=== PATIENT | female | born 1990 | race Caucasian/White ===

== ENCOUNTER → 2017-04-02 | Outpatient (CLI) | payer OTHER ==
--- NOTE | 2017-04-02 16:35 | US ---
EXAMINATION TYPE: US OB >= 14 wk fetus DATE OF EXAM: 04/02/2017 COMPARISON: None CLINICAL HISTORY: 26-year-old female Z36 Confirm dates [id number] Small for dates 2nd trimester. TECHNIQUE: Transabdominal (TA) FINDINGS: GESTATIONAL AGE / DATING Physician Established: not established Dates by LMP: (18 weeks/6 days) EDC: 08/28/2017 Dates by First Scan: first scan today Dates by Current Scan: (14 weeks/6 days) EDC: 09/25/2017 SURVEY IUP: Single PLACENTA: Posterior PREVIA: Low Lying and may be due to early second trimester scan. The caudal placental margin measure s 1.1 cm from the internal cervical os. JOSE JUAN: 9.2 cm Normal fluid appearance surrounding fetus and gestation is <16 weeks CERVICAL LENGTH (transabdominal: norm > 3.0cm): 3.01 cm, lower limits of normal. BIOMETRY PRESENTATION: Breech LIE: Oblique BPD: 2.8 cm 14 weeks / 6 days HC: 10.6 cm 15 weeks / 0 days AC: 8.5 cm 14 weeks / 6 days FL: 1.5 cm 14 weeks / 3 days ESTIMATED WEIGHT IN GRAMS: 103.97 grams ESTIMATED WEIGHT IN LBS/OZ: 0 lbs. 4 oz. WEIGHT PERCENTAGE BASED ON ESTABLISHED DATES: <3% due to being based on inaccurate dates HC/AC: 1.2 Normal FL/AC: 17.75 Normal HEART RATE: 159 bpm RHYTHM: Normal THERAPY ASSISTANT NOTES: Single, live, IUP,14 weeks/6 days, EDC: 09/25/2017 HR 159bpm. IMPRESSION: 1. Single live anterior with estimated gestational age of 18 weeks 6 days by LMP. However, note that current ultrasound biometry is much smaller and discordant (14 weeks 6 days) suspected to b e on the basis of inaccurate recall of LMP. Clinically correlate. 2. Cervical length measured at 3 cm which is at the lower limits of normal. Follow-up recommended to exclude cervical incompetence. 3. Low-lying posterior placenta measuring 1 cm from the internal cervical os likely due to relatively early . Again, this can be reassessed at follow-up. 4. Complete survey recommended at 18-20 weeks.
== END | disposition home or self-care (01) ==
LOC: RADUSWWP 15:47
PROVIDERS: ATTEND Obstetrics & Gynecology
DX: O36.62X0 Maternal care for excessive fetal growth, second trimester, not applicable or unspecified (principal); O44.02 Complete placenta previa NOS or without hemorrhage, second trimester; Z3A.14 14 weeks gestation of pregnancy
CPT/HCPCS: 76805

== ENCOUNTER → 2017-05-28 | Outpatient (CLI) | payer OTHER ==
[2017-05-28 10:43] LABS: CH 32.2; CHCM 34.3; HCT 35.6 % (34.0-46.0); HDW 2.38; MCH 31.7 pg (25.0-35.0); MCHC 33.6 g/dL (31.0-37.0); MCV 94.5 fL (80.0-100.0); Mean Platelet Volume 7.5; RBC 3.77 m/uL (3.80-5.40); RDW 13.7 % (11.5-15.5); WBC 10.7 k/uL (3.8-10.6)
[2017-05-28 10:54] LABS: Glucose 81 mg/dL (74-99); Non-African American GFR(MDRD) >60 (>60 ml/min/1.73 sqM)
[2017-05-28 16:57] LABS: Treponemal Ab Non-Reactive (Non-Reactive)
[2017-05-28 18:17] LABS: Hepatitis B Surface Ag Index 0.04
== END | disposition home or self-care (01) ==
LOC: LABWHC1 10:03
PROVIDERS: ATTEND Obstetrics & Gynecology
DX: Z34.82 Encounter for supervision of other normal pregnancy, second trimester (principal); Z3A.00 Weeks of gestation of pregnancy not specified
CPT/HCPCS: 36415; 82565; 82947; 85027; 86762; 86780; 86850; 86900; 86901; 87340; 87390

== ENCOUNTER 2018-04-26 13:59 | Inpatient (IN) | payer MEDICAID, OTHER ==
--- NOTE | 2018-04-26 14:33 | ED ---
General Adult HPI - General Chief complaint: Psychiatric Symptoms Stated complaint: Suicidal Time Seen by Provider: 04/26/18 14:19 Source: patient, RN notes reviewed Mode of arrival: ambulatory Limitations: no limitations - History of Present Illness Initial comments: Chief complaint and history of present illness is a 27-year-old female who reports that yesterday because of depression and thoughts of suicide and overdose on alcohol and [place]. The patient reports over. Approximately 7 hours from noon 7 PM yesterday she swallowed and snorted crushed [place]. To this she had alcohol. Patient reports depressed over family matters. - Related Data Home Medications Medication Instructions Recorded Confirmed Pnv,Calcium 72/Iron/Folic Acid 1 tab W/SUPPER 09/19/17 09/19/17 [ Plus Tablet] Previous Rx's Medication Instructions Recorded Ibuprofen [Motrin] 600 mg PO Q6HR PRN #30 tab 09/20/17 Allergies Allergy/AdvReac Type Severity Reaction Status Date / Time Penicillins Allergy Rash/Hives Verified 09/19/17 06:13 Review of Systems ROS Statement: Those systems with pertinent positive or pertinent negative responses have been documented in the HPI. Review of systems. Currently no complaint of headache no visual acuity changes no chest pain or shortness breath no GI/ problems. No neuro deficits. She does states she is depressed and suicidal. All systems were reviewed. Past medical problems significant for anxiety, posterior chronic stress disorder. She reports she has had addictions to alcohol and opiates. She states that she used her 's pain medication without him knowing. She also has a history of asthma. Surgeries gallbladder. Family history grandmother pancreatic cancer. The patient has penicillin ALLERGIES which causes hives. She does smoke strongly encouraged to stop she does admit to alcohol abuse. Last drank last night. ROS Other: All systems not noted in ROS Statement are negative. Past Medical History Past Medical History: No Reported History History of Any Multi-Drug Resistant Organisms: None Reported Past Surgical History: Cholecystectomy Past Anesthesia/Blood Transfusion Reactions: No Reported Reaction Past Psychological History: No Psychological Hx Reported Smoking Status: Never smoker Past Alcohol Use History: None Reported Past Drug Use History: None Reported - Past Family History Mother Family Medical History: No Reported History General Exam - General Exam Comments Initial Comments: General: The patient is awake and alert, with chief complaint of depression and suicidal thoughts. Patient does state that she try to commit suicide yesterday by drinking alcohol combined with approximately 7 [place] tablets over a period of 7 hours. Eye: Pupils are equal, round and reactive to light, extra-ocular movements are intact ; there is normal conjunctiva bilaterally. No signs of icterus. Ears, nose, mouth and throat: There are moist mucous membranes and no oral lesions. Neck: The neck is supple, there is no tenderness . Cardiovascular: There is a regular rate and rhythm. No murmur, rub or gallop is appreciated. Respiratory: Lungs are clear to auscultation, respirations are non-labored, breath sounds are equal. No wheezes, stridor, rales, or rhonchi. Gastrointestinal: Soft, non-distended, non-tender abdomen without masses or organomegaly noted. There is no rebound or guarding present. No CVA tenderness. Bowel sounds are unremarkable. Back: There is no tenderness to palpation in the midline. There is no obvious deformity. No rashes noted. Musculoskeletal: Normal ROM, no tenderness, There is no pedal edema. There is no calf tenderness or swelling. Sensation intact. Pulses equal bilaterally 2+. Neurological: CN II-XII intact, There are no obvious motor or sensory deficits. Coordination appears grossly intact. Speech is normal. No focal or lateralizing findings Skin: Skin is warm and dry and no rashes or lesions are noted. Psychiatric: Depressed, suicidal thoughts and actions yesterday with trying to overdose on [place] tablets and alcohol same time. This was done over 20 hours ago. Limitations: no limitations Course Vital Signs 04/26/18 14:03 Temperature 98.2 F Pulse Rate 105 H Respiratory 18 Rate Blood Pressure 124/78 O2 Sat by Pulse 100 Oximetry Medical Decision Making - Medical Decision Making Medical decision making; this is a 27-year-old female here for psychiatric evaluation. The patient reports that she is depressed and suicidal. States that she snorted and took approximately 7 [place] tablets [place] 24 hours ago with alcohol. Labs show white count of 11.8 hemoglobin 13 hematocrit 40, urine test is positive. Potassium is 3.8 with a BUN 13 creatinine 0.5 GFR greater than 90. Liver enzymes and alk phos are all within normal limits. The patient's drug screen was positive for marijuana. Acetaminophen was less than 10. Salicylate level less than 1. The patient was made aware of the lab results and the fact that the urine test was positive for . The patient is medically cleared for psych evaluation. Patient was evaluated by psychiatric nurse. She discussed the case with the psychiatrist and the patient is voluntarily admitting herself to the psych for further evaluation. - Lab Data Result diagrams: 04/26/18 15:13 04/26/18 15:13 Lab Results 04/26/18 04/26/18 04/26/18 Range/Units 15:13 15:13 15:13 WBC 11.8 H (3.8-10.6) k/uL RBC 4.57 (3.80-5.40) m/uL Hgb 13.4 (11.4-16.0) gm/dL Hct 40.5 (34.0-46.0) % MCV 88.7 (80.0-100.0) fL MCH 29.3 (25.0-35.0) pg MCHC 33.1 (31.0-37.0) g/dL RDW 13.3 (11.5-15.5) % Plt Count 280 (150-450) k/uL Neutrophils % 79 % Lymphocytes % 15 % Monocytes % 4 % Eosinophils % 1 % Basophils % 0 % Neutrophils # 9.4 H (1.3-7.7) k/uL Lymphocytes # 1.8 (1.0-4.8) k/uL Monocytes # 0.4 (0-1.0) k/uL Eosinophils # 0.1 (0-0.7) k/uL Basophils # 0.0 (0-0.2) k/uL Sodium 139 (137-145) mmol/L Potassium 3.8 (3.5-5.1) mmol/L Chloride 104 (98-107) mmol/L Carbon Dioxide 28 (22-30) mmol/L Anion Gap 7 mmol/L BUN 13 (7-17) mg/dL Creatinine 0.50 L (0.52-1.04) mg/dL Est GFR (CKD-EPI)AfAm >90 (>60 ml/min/1.73 sqM) Est GFR (CKD-EPI)NonAf >90 (>60 ml/min/1.73 sqM) Glucose 76 (74-99) mg/dL Calcium 9.6 (8.4-10.2) mg/dL Total Bilirubin 0.3 (0.2-1.3) mg/dL AST 25 (14-36) U/L ALT 24 (9-52) U/L Alkaline Phosphatase 54 (38-126) U/L Total Protein 7.1 (6.3-8.2) g/dL Albumin 4.5 (3.5-5.0) g/dL Urine HCG, Qual (Not Detectd) Salicylates mg/dL Urine Opiates Screen Not Detected (NotDetected) Ur Oxycodone Screen Not Detected (NotDetected) Urine Methadone Screen Not Detected (NotDetected) Ur Propoxyphene Screen Not Detected (NotDetected) Acetaminophen <10.0 ug/mL Ur Barbiturates Screen Not Detected (NotDetected) U Tricyclic Antidepress Not Detected (NotDetected) Ur Phencyclidine Scrn Not Detected (NotDetected) Ur Amphetamines Screen Not Detected (NotDetected) U Methamphetamines Scrn Not Detected (NotDetected) U Benzodiazepines Scrn Not Detected (NotDetected) Urine Cocaine Screen Not Detected (NotDetected) U Marijuana (THC) Screen Detected H (NotDetected) 04/26/18 04/26/18 Range/Units 15:13 15:13 WBC (3.8-10.6) k/uL RBC (3.80-5.40) m/uL Hgb (11.4-16.0) gm/dL Hct (34.0-46.0) % MCV (80.0-100.0) fL MCH (25.0-35.0) pg MCHC (31.0-37.0) g/dL RDW (11.5-15.5) % Plt Count (150-450) k/uL Neutrophils % % Lymphocytes % % Monocytes % % Eosinophils % % Basophils % % Neutrophils # (1.3-7.7) k/uL Lymphocytes # (1.0-4.8) k/uL Monocytes # (0-1.0) k/uL Eosinophils # (0-0.7) k/uL Basophils # (0-0.2) k/uL Sodium (137-145) mmol/L Potassium (3.5-5.1) mmol/L Chloride (98-107) mmol/L Carbon Dioxide (22-30) mmol/L Anion Gap mmol/L BUN (7-17) mg/dL Creatinine (0.52-1.04) mg/dL Est GFR (CKD-EPI)AfAm (>60 ml/min/1.73 sqM) Est GFR (CKD-EPI)NonAf (>60 ml/min/1.73 sqM) Glucose (74-99) mg/dL Calcium (8.4-10.2) mg/dL Total Bilirubin (0.2-1.3) mg/dL AST (14-36) U/L ALT (9-52) U/L Alkaline Phosphatase (38-126) U/L Total Protein (6.3-8.2) g/dL Albumin (3.5-5.0) g/dL Urine HCG, Qual Detected (Not Detectd) Salicylates <1.0 mg/dL Urine Opiates Screen (NotDetected) Ur Oxycodone Screen (NotDetected) Urine Methadone Screen (NotDetected) Ur Propoxyphene Screen (NotDetected) Acetaminophen ug/mL Ur Barbiturates Screen (NotDetected) U Tricyclic Antidepress (NotDetected) Ur Phencyclidine Scrn (NotDetected) Ur Amphetamines Screen (NotDetected) U Methamphetamines Scrn (NotDetected) U Benzodiazepines Scrn (NotDetected) Urine Cocaine Screen (NotDetected) U Marijuana (THC) Screen (NotDetected) Disposition Clinical Impression: Depression, Suicidal behavior Disposition: TRANSFER TO PSYCH HOSP/UNIT Condition: Serious Is patient prescribed a controlled substance at d/c from ED?: No Referrals: None,Stated [Primary Care Provider] - 1-2 days
[2018-04-26 15:31] LABS: Basophils % (A) 0 %; Eosinophils # (A) 0.1 k/uL (0-0.7); Eosinophils % (A) 1 %; HCT 40.5 % (34.0-46.0); HGB 13.4 gm/dL (11.4-16.0); Lymphocytes # (A) 1.8 k/uL (1.0-4.8); Lymphocytes % (A) 15 %; MCH 29.3 pg (25.0-35.0); MCHC 33.1 g/dL (31.0-37.0); MCV 88.7 fL (80.0-100.0); Mean Platelet Volume 6.6; Monocytes # (A) 0.4 k/uL (0-1.0); Monocytes % (A) 4 %; Neutrophils # (A) 9.4 k/uL (1.3-7.7); Neutrophils % (A) 79 %; Platelet Count 280 k/uL (150-450); RBC 4.57 m/uL (3.80-5.40); RDW 13.3 % (11.5-15.5); WBC 11.8 k/uL (3.8-10.6)
[2018-04-26 15:45] LABS: Amphetamine Screen,Urine Not Detected (NotDetected); Barbiturate Screen,Urine Not Detected (NotDetected); Benzodiazepines Screen,Urine Not Detected (NotDetected); Cocaine Screen,Urine Not Detected (NotDetected); Methadone Screen, Urine Not Detected (NotDetected); Opiate Screen,Urine Not Detected (NotDetected); Oxycodone Screen, Urine Not Detected (NotDetected); Phencyclidine Screen,Urine Not Detected (NotDetected); Tricyclic Antidepressant,Urine Not Detected (NotDetected); Urn Cannabinoid Scrn Detected (NotDetected)
[2018-04-26 15:46] LABS: ALT 24 U/L (9-52); AST 25 U/L (14-36); Acetaminophen <10.0 ug/mL; Albumin 4.5 g/dL (3.5-5.0); Alkaline Phosphatase 54 U/L (38-126); Anion Gap 7 mmol/L; Blood Urea Nitrogen 13 mg/dL (7-17); Calcium 9.6 mg/dL (8.4-10.2); Carbon Dioxide 28 mmol/L (22-30); Chloride 104 mmol/L (98-107); Glucose 76 mg/dL (74-99); Potassium 3.8 mmol/L (3.5-5.1); Sodium 139 mmol/L (137-145); Total Bilirubin 0.3 mg/dL (0.2-1.3); Total Protein 7.1 g/dL (6.3-8.2)
[2018-04-26 18:45] LABS: Appearance,Urine Clear (Clear); Bilirubin,Urine Negative (Negative); Blood,Urine Negative (Negative); Color,Urine Yellow; Glucose,Urine (UA) Negative (Negative); Ketones,Urine Negative (Negative); Leukocyte Esterase,Urine Negative (Negative); Nitrite,Urine Negative (Negative); Protein,Urine Trace (Negative); Specific Gravity,Urine 1.022 (1.001-1.035); Urobilinogen,Urine <2.0 mg/dL (<2.0)
[2018-04-27] MEDS ORDERED: LORazepam 1 MG TAB PO PRN ×2 (07:34)
[2018-04-27] MEDS ORDERED: THIAMINE 100 MG/ML 2 ML VIAL IM STA (07:34)
--- NOTE | 2018-04-27 07:58 | P.MDCNMH ---
History of Present Illness H&P Date: 04/27/18 Chief Complaint: medical consultation 27-year-old female with no significant past medical history Patient presented to the hospital due to suicidal ideation, she claims that she was planning on overdosing on her opiates she took some extra pills. She currently denies any medical concerns. Denies any chest pain or trouble breathing denies any fevers or chills denies any abdominal pain denies any changes in her bowel habits or urinary habits. During her workup in the ER she was found to have possible test in the urine. Patient has 3 other kids last baby was 7 months ago. She was not expecting this but now she feels okay about having a baby she is hoping that the father of her children will be excited to have another kid. However she has more than one sexual partner over the past couple months and she is not sure who is the father of the baby. Patient denies any vaginal discharge or bleeding at this time Review of Systems Pertinent positives as noted in HPI. All other systems were reviewed and are negative Past Medical History Past Medical History: No Reported History History of Any Multi-Drug Resistant Organisms: None Reported Past Surgical History: Cholecystectomy Past Anesthesia/Blood Transfusion Reactions: No Reported Reaction Past Psychological History: Depression Smoking Status: Never smoker Past Alcohol Use History: None Reported Past Drug Use History: None Reported - Past Family History Mother Family Medical History: No Reported History Additional Family Medical History / Comment(s): Mother with depression and pink. Cancer Medications and Allergies Home Medications Medication Instructions Recorded Confirmed Type No Known Home Medications 04/26/18 04/26/18 History Allergies Allergy/AdvReac Type Severity Reaction Status Date / Time Penicillins Allergy Rash/Hives Verified 04/26/18 17:26 Physical Exam Vitals: Vital Signs Temp Pulse Resp BP Pulse Ox 04/26/18 17:27 97.5 F L 94 18 110/57 99 04/26/18 14:03 98.2 F 105 H 18 124/78 100 Constitutional: No acute distress, conversant, pleasant Eyes: Anicteric sclerae, moist conjunctiva, no lid-lag Pupils equal round reactive to light ENMT: NC/AT Oropharynx clear, no erythema, exudates Neck: Supple, FROM, no masses, or JVD No carotid bruits No thyromegaly Lungs: Clear to auscultation Clear to percussion Normal respiratory effort, no accessory muscle use Cardiovascular: Heart regular in rate and rhythm, No murmurs, gallops, or rubs No peripheral edema Abdominal: Soft Nontender, no guarding, rebound or rigidity Abdomen moving with respiration Normoactive bowel sounds No hepatomegaly, No splenomegaly No palpable mass No abdominal wall hernia noted Skin: Normal temperature, tone, texture, turgor No induration No subcutaneous nodules No rash, lesions No ulcers Extremities: No digital cyanosis No clubbing Pedal pulses intact and symmetrical Radial pulses intact and symmetrical No calf tenderness Psychiatric: Alert and oriented to person, place and time Appropriate affect fair judgement Neuro Muscles Strength 5/5 in all 4 extremities Sensation to light touch grossly present throughout Cranial nerves II-XII grossly intact No focal sensory deficits Lymphatics: no palpable cervical or supraclavicular , or inguinal lymph nodes Cranial Nerve Examination - Cranial Nerves Cranial Nerve II- Optic: Intact Cranial Nerve III- Oculomotor: Intact Cranial Nerve IV- Trochlear: Intact Cranial Nerve V- Trigeminal: Intact Cranial Nerve - Abducens: Intact Cranial Nerve VII- Facial: Intact Cranial Nerve VIII- Auditory: Intact Cranial Nerve IX- Glossopharyngeal: Intact Cranial Nerve X- Vagus: Intact Cranial Nerve XI- Accessory: Intact Cranial Nerve XII- Hypoglossal: Intact Results CBC & Chem 7: 04/26/18 15:13 04/26/18 15:13 Labs: Abnormal Lab Results - Last 24 Hours (Table) 04/26/18 04/26/18 04/26/18 Range/Units 15:13 15:13 15:13 WBC 11.8 H (3.8-10.6) k/uL Neutrophils # 9.4 H (1.3-7.7) k/uL Creatinine 0.50 L (0.52-1.04) mg/dL TSH (0.465-4.680) mIU/L Urine Protein (Negative) U Marijuana (THC) Screen Detected H (NotDetected) 04/26/18 04/26/18 Range/Units 15:13 15:30 WBC (3.8-10.6) k/uL Neutrophils # (1.3-7.7) k/uL Creatinine (0.52-1.04) mg/dL TSH 0.397 L (0.465-4.680) mIU/L Urine Protein Trace H (Negative) U Marijuana (THC) Screen (NotDetected) Assessment and Plan Assessment: 27-year-old female with history of depression presented due to suicidal ideation. Patient was also found to be in the emergency department workup with a positive urine test. Patient had a baby 7 months ago. Medicine was consulted for medical management Plan: Depression and suicidal ideation Management per psych Positive test OB consult Check quantitative serum beta hCG vitamin Alcohol abuse Withdrawal precautions When necessary benzo Thiamine and folic acid Low TSH, rule out thyroid disorder Check free T4 DVT prophylaxis, patient is ambulatory Thank you for allowing us to participate in the care of this patient. We will follow peripherally. Do not hesitate to contact us with questions. Someone can be reached from the [facility] hospitalist group at all hours of the day at [phone].
[2018-04-27 08:49] LABS: T4, Free (Free Thyroxine) 0.97 ng/dL (0.78-2.19)
[2018-04-27 09:58] LABS: HCG,Quantitative Serum 92534.7 mIU/mL
[2018-04-27] MEDS: NICOTINE 14MG/24HR PATCH TRANSDERM SCH (10:07)
[2018-04-27 10:18] VITALS: RESP 16; BMI 19.2
[2018-04-27] MEDS: PRENATAL VIT-IRON-FOLIC ACID 1 EACH CAP PO SCH (12:13)
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
[2018-04-27] MEDS: THIAMINE 100 MG TAB PO SCH (17:05)
[2018-04-28] MEDS: NICOTINE 14MG/24HR PATCH TRANSDERM SCH (08:45)
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
[2018-04-28] MEDS: THIAMINE 100 MG TAB PO SCH ×2 (12:47→16:21)
[2018-04-28] MEDS: PRENATAL VIT-IRON-FOLIC ACID 1 EACH CAP PO SCH (12:47)
[2018-04-28] MEDS ORDERED: MELATONIN 3 MG TABLET PO PRN (18:38)
--- NOTE | 2018-04-28 18:42 | P.OBCN ---
History of Present Illness Consult date: 04/28/18 Requesting physician: Franklin Olmstead Reason for consult: early problem Chief complaint: and medication exposure History of present illness: This patient is a pleasant 27-year-old 5 para 3 female who is admitted to [facility] on April 26 after presenting to the emergency department with an apparent suicide attempt. Please see dictated H&P on this patient's admission for intimate details of this admission. Evaluation here at the hospital has shown the patient to be as well. Patient states that she is unsure about her last menstrual period but thinks it was on 01/24/2018 which would put her approximately 13 weeks and 4 days with a due date of 10/31/2018. Patient most recently had a vaginal delivery with Dr. Swain and late August of this last year. She has not been seen by him as of yet for this . Review of Systems Genitourinary: Reports Past Medical History Past Medical History: No Reported History History of Any Multi-Drug Resistant Organisms: None Reported Past Surgical History: Cholecystectomy Past Anesthesia/Blood Transfusion Reactions: No Reported Reaction Smoking Status: Current every day smoker - Past Family History Mother Family Medical History: No Reported History Additional Family Medical History / Comment(s): Mother with depression. Medications and Allergies Home Medications Medication Instructions Recorded Confirmed Type No Known Home Medications 04/26/18 04/26/18 History Allergies Allergy/AdvReac Type Severity Reaction Status Date / Time Penicillins Allergy Rash/Hives Verified 04/26/18 17:26 Exam Vital Signs Temp Pulse Resp BP 04/28/18 06:41 98.8 F 83 16 105/60 Intake and Output 04/28/18 04/28/18 04/28/18 06:59 14:59 22:59 Other: Weight 50.9 kg Results Result Diagrams: 04/26/18 15:13 04/26/18 15:13 Assessment and Plan Assessment: This is a pleasant 27-year-old 5 para 3 female estimated gestational age 13-1/2 weeks per uncertain LMP who is admitted for depression and suicidal behavior. From an obstetrical standpoint certainly SSRIs are generally considered an option since the benefits outweigh the potential risks. Most studies show that SSRIs are not associated with defects. At this point it also appears she has polysubstance abuse which qualifies her as a high-risk . I have ordered an ultrasound to confirm her EDC. I think she certainly could take Zoloft or Prozac. She may follow up with Dr. Swain as an outpatient for obstetrical care. (1) Medication exposure during first trimester of Current Visit: Yes Status: Acute Code(s): O09.891 - SUPERVISION OF OTHER HIGH RISK PREGNANCIES, FIRST TRIMESTER SNOMED Code(s): 45220092
[2018-04-28] MEDS ORDERED: SERTRALINE 50 MG TAB PO SCH (21:00)
[2018-04-29 06:38] VITALS: BP 94/54; PULSE 88; TEMP 97.9
[2018-04-29] MEDS: NICOTINE 14MG/24HR PATCH TRANSDERM SCH (08:59)
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
[2018-04-29] MEDS: THIAMINE 100 MG TAB PO SCH (12:32)
[2018-04-29] MEDS: PRENATAL VIT-IRON-FOLIC ACID 1 EACH CAP PO SCH (12:32)
--- NOTE | 2018-04-29 15:29 | US ---
EXAMINATION TYPE: Transabdominal DATE OF EXAM: 12/24/17 COMPARISON: NONE CLINICAL HISTORY: Unknown dates/medication exposure. Confirm dates EXAM PERFORMED: Transabdominal (TA) EXAM MEASUREMENTS: GESTATIONAL AGE / DATING Physician Established: Not established yet Dates by LMP: Unknown Dates by First Scan: This is 1st scan Dates by Current Scan for: (11 weeks/0 days) EDC: 11/18/2018 MATERNAL ANATOMY Uterus: 10.2 x 7.2 x 8.2cm, anteverted Right Ovary: 3.4 x 2.1 x 2.1cm Left Ovary: 2.5 x 2.1 x 2.1cm Post CDS / Adnexa: wnl Presence of free fluid: no Presence of corpus luteal cyst: not seen Presence of subchorionic bleed: no GESTATION / SURVEY CRL: 4.1cm (11 weeks/0 days) Yolk Sac (normal less than 6mm): 3.4mm Heart Rate: 172 bpm Rhythm: Normal IUP: Viable IUP Nuchal Translucency 10-14wks (normal less than 3mm): 1.2mm Date of LMP: Unknown Beta HcG (if available): 92,534.7 Viable single IUP measuring 11 weeks 0 days with a heart rate of 172bpm and an estimated delivery rigo e of 11/18/2018. IMPRESSION: 1. Single intrauterine gestation estimated at 11 weeks 0 days gestation based on crown-rump length. C ardiac activity measures 172 bpm.
== END 2018-04-29 13:55 | disposition home or self-care (01) | DRG 885 ==
LOC: EC 13:59 → 3MHU 17:15
PROVIDERS: ADMIT Psychiatry & Neurology Psychiatry; ATTEND Psychiatry & Neurology Psychiatry
DX: F33.2 Major depressive disorder, recurrent severe without psychotic features (principal); O99.321 Drug use complicating pregnancy, first trimester; R45.851 Suicidal ideations; F11.23 Opioid dependence with withdrawal; F41.9 Anxiety disorder, unspecified; O99.311 Alcohol use complicating pregnancy, first trimester; O99.331 Smoking (tobacco) complicating pregnancy, first trimester; O99.341 Other mental disorders complicating pregnancy, first trimester; Z32.01 Encounter for pregnancy test, result positive; Z3A.13 13 weeks gestation of pregnancy; Z81.8 Family history of other mental and behavioral disorders; F10.10 Alcohol abuse, uncomplicated; F14.10 Cocaine abuse, uncomplicated; F15.10 Other stimulant abuse, uncomplicated; Z88.0 Allergy status to penicillin; Z63.0 Problems in relationship with spouse or partner
CPT/HCPCS: 36415; 76801; 76813; 80053; 80306; 81003; 81025; 82075; 83520; 84439; 84443; 84702; 85025; 99285

== ENCOUNTER → 2018-06-20 | Outpatient (CLI) | payer OTHER ==
--- NOTE | 2018-06-20 17:05 | US ---
EXAMINATION TYPE: US OB anatomy transabd DATE OF EXAM: 06/20/2018 COMPARISON: US 04/29/2018 HISTORY: Z34.80 supervision of other normal TECHNIQUE: Transabdominal (TA) EXAM MEASUREMENTS: GESTATIONAL AGE / DATING Physician Established: (18 weeks/3 days) EDC: 11/18/2018 Dates by First Scan: (18 weeks/3 days) EDC: 11/18/2018 Dates by Current Scan for: (18 weeks/0 days) EDC: 11/21/2018 SURVEY IUP: Single PLACENTA: Anterior PREVIA: No previa JOSE JUAN: 14.1 cm Normal CERVICAL LENGTH (transabdominal: norm > 3.0cm): 4.1 cm BIOMETRY PRESENTATION: Vertex LIE: Longitudinal BPD: 4.0 cm 18 weeks / 2 days HC: 15.4 cm 18 weeks / 3 days AC: 12.0 cm 17 weeks / 5 days FL: 2.5 cm 17 weeks / 4 days ESTIMATED WEIGHT IN GRAMS: 207 grams ESTIMATED WEIGHT IN LBS/OZ: 0 lbs. 7 oz. WEIGHT PERCENTAGE BASED ON ESTABLISHED DATE: 12 % HC/AC: 1.28 Normal FL/AC: 21% HEART RATE: 147 bpm RHYTHM: Normal ANATOMY SEEN (within normal limits): * Lateral Vent (< 1 cm) 0.6 cm * Cisterna Magna (< 1.1 cm) 0.5 cm * Nuchal Fold (< 0.6 cm) 0.2 cm * Cerebellum (varies with age) 1.7 cm Choroid Plexus (bilateral) Midline Falx Cavus Septi Pellucidi Four Chamber Heart Outflow tracts: LVOT/RVOT Stomach Situs Nose / Lips Diaphragm Kidneys (bilateral) Bladder Cord Insert Three Vessel Cord Longitudinal Spine Transverse Spine Arms (bilateral) Legs (bilateral) Viable IUP, measurements consistent with dates. IMPRESSIONS: 1. Single intrauterine gestation estimated at 18 weeks 0 days gestation based on current ultrasound. This would have an estimated date of confinement of 11/21/2018. Cardiac activity measuring 147 bpm was observed during the study.
== END ==
LOC: RADUSWWP 09:42
PROVIDERS: ATTEND Obstetrics & Gynecology
DX: Z34.80 Encounter for supervision of other normal pregnancy, unspecified trimester (principal); Z3A.18 18 weeks gestation of pregnancy
CPT/HCPCS: 76811

== ENCOUNTER → 2018-09-05 | Outpatient (CLI) | payer OTHER ==
--- NOTE | 2018-09-05 15:49 | US ---
EXAMINATION TYPE: US OB >= 14 wk fetus DATE OF EXAM: 09/05/2018 COMPARISON: us 06/20/2018 CLINICAL HISTORY: [id number] Encounter for supervision of other normal pr TECHNIQUE: Transabdominal (TA) GESTATIONAL AGE / DATING Physician Established: (29 weeks/0 days) EDC: 11/21/2018 Dates by LMP: (29 weeks/3 days) EDC: 11/18/2018 Dates by First Scan: (29 weeks/3 days) EDC: 11/18/2018 Dates by Current Scan: (28 weeks/6 days) EDC: 11/22/2018 Beta HCG (if available): Not available at this time SURVEY IUP: Single PLACENTA: Anterior PREVIA: No Previa JOSE JUAN: 18.3 cm Normal CERVICAL LENGTH (transabdominal: norm > 3.0cm): 3.1 cm BIOMETRY PRESENTATION: Breech LIE: Longitudinal BPD: 7.5 cm 29 weeks / 6 days HC: 27.6 cm 30 weeks / 1 days AC: 24.9 cm 29 weeks / 1 days FL: 5.3 cm 28 weeks / 1 days ESTIMATED WEIGHT IN GRAMS: 1313 grams ESTIMATED WEIGHT IN LBS/OZ: 2 lbs. 14 oz. WEIGHT PERCENTAGE BASED ON ESTABLISHED DATES: 22.2% HC/AC: 1.1 Normal FL/AC: 21.2 Normal HEART RATE: 132 bpm RHYTHM: Normal Viable IUP, measurements consistent with dates. Femur length to head circumference is slightly diminished at 19.21, normal greater than 19.49. IMPRESSION: Single intrauterine gestation currently estimated at 28 weeks 6 days gestation based on current ultra sound measurements. This would have a calculated EDC of 11/22/2018. Correlate this with her physician e stablished EDC. Cardiac activity measures 132 bpm
== END | disposition home or self-care (01) ==
LOC: RADUSWWP 11:00
PROVIDERS: ATTEND Obstetrics & Gynecology
DX: Z34.82 Encounter for supervision of other normal pregnancy, second trimester (principal); Z3A.28 28 weeks gestation of pregnancy
CPT/HCPCS: 76805

== ENCOUNTER 2018-11-06 00:25 | Inpatient (IN) | payer OTHER ==
[2018-11-06] MEDS ORDERED: OXYTOCIN 10 UNIT/ML 1 ML VIAL IM PRN (00:54)
[2018-11-06] MEDS ORDERED: CARBOPROST TROMETHAMINE 250 MCG/ML 1 ML AMP IM PRN (00:54)
[2018-11-06] MEDS ORDERED: TERBUTALINE 1 MG/ML VIAL SQ PRN (00:54)
[2018-11-06] MEDS ORDERED: METHYLERGONOVINE 0.2 MG/ML 1 ML AMP IM PRN (00:54)
[2018-11-06] MEDS ORDERED: LIDOCAINE 0.5% (PF) 5 MG/ML (50 ML SDV) SQ PRN (00:54)
[2018-11-06] MEDS ORDERED: CLINDAMYCIN 900 MG in DEXTROSE 5% IN WATER 50 ML IVPB STA ×2 (00:54)
[2018-11-06] MEDS ORDERED: BUTORPHANOL 1 MG/ML 1 ML VIAL IV PRN (00:59)
[2018-11-06] MEDS: LACTATED RINGERS 1,000 ML IV SCH ×3 (01:33→10:51)
[2018-11-06 01:38] VITALS: BMI 28.1
[2018-11-06 01:40] LABS: Basophils % (A) 0 %; Eosinophils # (A) 0.2 k/uL (0-0.7); Eosinophils % (A) 2 %; HCT 35.1 % (34.0-46.0); HGB 11.4 gm/dL (11.4-16.0); Lymphocytes # (A) 2.9 k/uL (1.0-4.8); Lymphocytes % (A) 25 %; MCHC 32.5 g/dL (31.0-37.0); MCV 92.3 fL (80.0-100.0); Monocytes # (A) 0.6 k/uL (0-1.0); Monocytes % (A) 5 %; Neutrophils # (A) 7.9 k/uL (1.3-7.7); Neutrophils % (A) 66 %; Platelet Count 302 k/uL (150-450); RDW 13.4 % (11.5-15.5); WBC 11.9 k/uL (3.8-10.6)
[2018-11-06 01:43] LABS: Appearance,Urine Cloudy (Clear); Bilirubin,Urine 1+ (Negative); Blood,Urine Negative (Negative); Color,Urine Yellow; Glucose,Urine (UA) Negative (Negative); Hyaline Casts,Urine 4 /lpf (0-2); Ketones,Urine Negative (Negative); Leukocyte Esterase,Urine Large (Negative); Mucus,Urine Many /hpf; Nitrite,Urine Negative (Negative); Protein,Urine 1+ (Negative); RBC,Urine 11 /hpf (0-5); Specific Gravity,Urine 1.037 (1.001-1.035); Squamous Epithelial Cell,Urine 7 /hpf (0-4); WBC,Urine 26 /hpf (0-5)
[2018-11-06 01:49] LABS: Cocaine Screen,Urine Not Detected (NotDetected); Phencyclidine Screen,Urine Not Detected (NotDetected); Urn Cannabinoid Scrn Not Detected (NotDetected)
[2018-11-06 01:50] LABS: Amphetamine Screen,Urine Not Detected (NotDetected); Barbiturate Screen,Urine Not Detected (NotDetected); Benzodiazepines Screen,Urine Detected (NotDetected); Methadone Screen, Urine Not Detected (NotDetected); Opiate Screen,Urine Detected (NotDetected); Oxycodone Screen, Urine Not Detected (NotDetected); Tricyclic Antidepressant,Urine Not Detected (NotDetected)
[2018-11-06] MEDS ORDERED: OXYTOCIN 30 UNITS/500 ML NS 30 UNIT in SALINE 1 500ML.BAG IV SCH (04:00)
[2018-11-06] MEDS ORDERED: ROPIVACAINE 5MG/ML 20ML VIAL ONE (05:06)
[2018-11-06] MEDS ORDERED: SODIUM CHLORIDE 0.9% 100 ML BAG ONE (05:06)
[2018-11-06] MEDS ORDERED: fentaNYL (PF) 50 MCG/ML 5 ML AMP ONE (05:06)
--- NOTE | 2018-11-06 08:10 | P.HPOB ---
History of Present Illness H&P Date: 11/06/18 Chief Complaint: IUP 38 2/7 weeks, SROM This is a 28yo at 38 2/7 weeks EDC 11/18, she presents last night with c/ o SROM clear in nature. she notes some ctx but nothing regular. She states she has been receiving routine care with Dr. Mary alexander at [facility]. blood work was obtained with a blood type of B+, hepatitis B surface antigen negative , rubella immune, group beta strep was positive, HIV negative, RPR nonreactive, UDS on admission was positive for benzos and opiates. She states she has been taking Zoloft for depression during this . Review of Systems Constitutional: Denies chills, Denies fatigue, Denies fever Cardiovascular: Reports leg edema Respiratory: Denies dyspnea Gastrointestinal: Denies constipation, Denies diarrhea Genitourinary: Reports Past Medical History Past Medical History: No Reported History History of Any Multi-Drug Resistant Organisms: None Reported Past Surgical History: Cholecystectomy Past Anesthesia/Blood Transfusion Reactions: No Reported Reaction Past Psychological History: Depression Smoking Status: Never smoker Past Alcohol Use History: Abuse Additional Past Alcohol Use History / Comment(s): Ptstates she has been drinking weekly over the past two months Past Drug Use History: Cocaine, Marijuana, Opiates - Past Family History Mother Family Medical History: No Reported History Additional Family Medical History / Comment(s): Mother with depression. Medications and Allergies Home Medications Medication Instructions Recorded Confirmed Type Ylj-Kqof-Vajkg Acid 1 each PO DAILY@1200 #30 cap 04/29/18 11/06/18 Rx [-U Capsule (formulary)] Sertraline [Zoloft] 150 mg PO HS 11/06/18 11/06/18 History Allergies Allergy/AdvReac Type Severity Reaction Status Date / Time Penicillins Allergy Rash/Hives Verified 11/06/18 00:31 Exam Osteopathic Statement: *. No significant issues noted on an osteopathic structural exam other than those noted in the History and Physical/Consult. Vital Signs Temp Pulse Resp BP Pulse Ox 11/06/18 00:54 97.5 F L 99 16 121/71 98 11/06/18 00:53 97.5 F L 99 16 121/71 98 Intake and Output 11/05/18 11/06/18 11/06/18 22:59 06:59 14:59 Intake Total 950 Balance 950 Intake: IV 950 Lactated Ringers 1,000 ml 950 @ 125 mls/hr IV .Q8H [facility] Rx#:[id number] Other: # Voids 1 Weight 74.389 kg In general this is a well-nourished well-developed female in no acute distress. On initial physical exam she was noted to have nonlabored bleeding breathing, heart was noted to have a regular rate and rhythm. Abdomen is noted to be gravid, heart tones are noted to be reassuring with moderate variability and she is hugh every 3 minutes Results Result Diagrams: 11/06/18 01:30 Abnormal Lab Results - Last 24 Hours (Table) 11/06/18 11/06/18 11/06/18 Range/Units 01:30 01:30 01:30 WBC 11.9 H (3.8-10.6) k/uL Neutrophils # 7.9 H (1.3-7.7) k/uL Urine Appearance Cloudy H (Clear) Ur Specific [place] 1.037 H (1.001-1.035) Urine Protein 1+ H (Negative) Urine Bilirubin 1+ H (Negative) Ur Leukocyte Esterase Large H (Negative) Urine RBC 11 H (0-5) /hpf Urine WBC 26 H (0-5) /hpf Ur Squamous Epith Cells 7 H (0-4) /hpf Hyaline Casts 4 H (0-2) /lpf Urine Mucus Many H (None) /hpf Urine Opiates Screen Detected H (NotDetected) U Benzodiazepines Scrn Detected H (NotDetected) Assessment and Plan (1) Term Current Visit: Yes Status: Acute Code(s): Z34.80 - ENCOUNTER FOR SUPRVSN OF NORMAL , UNSP TRIMESTER SNOMED Code(s): 09383580 (2) Positive GBS test Current Visit: Yes Status: Acute Code(s): B95.1 - STREPTOCOCCUS, GROUP B, CAUSING DISEASES CLASSD ELSR SNOMED Code(s): 7399927168109 (3) SROM (spontaneous rupture of membranes) Current Visit: Yes Status: Acute Code(s): TTU9736 - SNOMED Code(s): 559384070 Plan: Patient is admitted to labor and delivery and Pitocin augmentation of labor was begun. Given her positive GBS culture clindamycin treatment is begun. We will try to obtain records from Dr. jalloh this morning. UDS as she is in no doc to this hospital was positive for benzos and opiates patient is aware that social service consult will be initiated. Anticipate spontaneous vaginal delivery this morning.
[2018-11-06] MEDS ORDERED: CLINDAMYCIN 900 MG in DEXTROSE 5% IN WATER 50 ML IVPB SCH ×2 (08:55)
--- NOTE | 2018-11-06 09:14 | P.PROBDLV ---
Vaginal Delivery Note - . Vaginal Delivery Note: This is a 28-year-old 4 para 3003 at 38-2/7 weeks that presented to labor and delivery last night with complaints of spontaneous rupture of membranes clear in nature. Patient states she noted rupture of membrane turned around 11:30 and that presented to OB triage. Patient was admitted to labor and delivery chief EBS positive status was obtained from [facility] and clindamycin was begun. Patient made minimal ion exchange operator 2 hours therefore Pitocin augmentation of labor was begun patient became uncomfortable eventually requesting an epidural for anesthesia. This was placed without difficulty. Patient progressed to complete began pushing and had a normal spontaneous vaginal delivery of a viable male infant at 903, infant did have a loose nuchal 2 which was delivered through. Infants weight was 6 lbs. 7 oz. with Apgars of 9 and 9 at one and 5 minutes respectively. After a two-minute delayed the umbilical cord was doubly clamped and cut and the placenta was delivered spontaneously intact with a three-vessel cord being noted. On speculum patient's vaginal vault lacerations were noted. Estimated blood loss was 300 mL. Patient and infant tolerated delivery well and are resting comfortably.
[2018-11-06] MEDS ORDERED: LANOLIN CREAM 5 GM TUBE TOPICAL PRN (09:15)
[2018-11-06] MEDS ORDERED: HYDROCORTISONE 2.5% RECTAL CREAM 30 GM TUBE RECTAL PRN (09:15)
[2018-11-06] MEDS ORDERED: ZOLPIDEM 5 MG TAB PO PRN (09:15)
[2018-11-06] MEDS ORDERED: OXYTOCIN 20 UNITS/1000 ML NS 1,000 ML IV SCH (09:15)
[2018-11-06] MEDS ORDERED: SIMETHICONE 80 MG CHEWABLE PO PRN (09:15)
[2018-11-06] MEDS ORDERED: diphenhydrAMINE 25 MG CAP PO PRN (09:15)
[2018-11-06] MEDS ORDERED: diphenhydrAMINE 50 MG/ML 1 ML VIAL IVP PRN ×2 (09:15)
[2018-11-06] MEDS ORDERED: diphenhydrAMINE 50 MG CAP PO PRN (09:15)
[2018-11-06] MEDS ORDERED: BENZOCAINE/MENTHOL SPRAY 1 GM/SPRAY AEROSOL TOPICAL PRN (09:15)
[2018-11-06] MEDS ORDERED: WITCH HAZEL 1 EACH MED..PAD TOPICAL PRN (09:15)
[2018-11-06] MEDS: IBUPROFEN 600 MG TAB PO PRN ×3 (10:39→22:57)
[2018-11-06] MEDS ORDERED: PRENATAL VIT-IRON-FOLIC ACID 1 EACH CAP PO SCH (12:00)
[2018-11-06] MEDS: SERTRALINE 50 MG TAB PO SCH (15:59)
[2018-11-06] MEDS: ACETAMINOPHEN TAB 325 MG TAB PO PRN (18:51)
[2018-11-06 20:38] VITALS: RESP 16
[2018-11-06] MEDS: SENNOSIDES-DOCUSATE SODIUM 1 EACH TAB PO SCH (20:38)
[2018-11-07] MEDS: ACETAMINOPHEN TAB 325 MG TAB PO PRN ×4 (03:58→21:08)
[2018-11-07 05:55] LABS: Basophils # (A) 0.1 k/uL (0-0.2); Basophils % (A) 1 %; Eosinophils # (A) 0.3 k/uL (0-0.7); Eosinophils % (A) 2 %; HCT 32.2 % (34.0-46.0); HGB 10.9 gm/dL (11.4-16.0); Lymphocytes # (A) 3.3 k/uL (1.0-4.8); Lymphocytes % (A) 26 %; MCHC 33.8 g/dL (31.0-37.0); MCV 91.6 fL (80.0-100.0); Mean Platelet Volume 7.2; Monocytes # (A) 0.5 k/uL (0-1.0); Monocytes % (A) 4 %; Neutrophils # (A) 8.1 k/uL (1.3-7.7); Neutrophils % (A) 65 %; Platelet Count 308 k/uL (150-450); RBC 3.51 m/uL (3.80-5.40); RDW 13.2 % (11.5-15.5); WBC 12.5 k/uL (3.8-10.6)
[2018-11-07] MEDS: IBUPROFEN 600 MG TAB PO PRN ×3 (05:56→18:57)
--- NOTE | 2018-11-07 07:45 | P.PN ---
Subjective Progress Note Date: 11/07/18 Minimal lochia rubra. Minimal pain. No complaints. Objective - Vital Signs Vital signs: Vital Signs Temp 98.4 F 11/06/18 23:03 Pulse 87 11/06/18 23:03 Resp 16 11/06/18 23:03 BP 94/53 11/06/18 23:03 Pulse Ox 98 11/06/18 00:54 Intake & Output 11/06/18 11/07/18 11/07/18 18:59 06:59 18:59 Other: # Voids 1 - Constitutional General appearance: Present: average body habitus, cooperative - EENT Eyes: Present: PERRLA ENT: Present: hearing grossly normal - Respiratory Respiratory: bilateral: CTA - Cardiovascular Rhythm: regular - Gastrointestinal General gastrointestinal: Present: normal bowel sounds - Integumentary Integumentary: Present: normal - Neurologic Neurologic: Present: CNII-XII intact - Musculoskeletal Musculoskeletal: Present: gait normal, strength equal bilaterally - Psychiatric Psychiatric: Present: A&O x's 3, appropriate affect - Labs CBC & Chem 7: 11/07/18 05:34 Labs: Abnormal Lab Results - Last 24 Hours (Table) 11/07/18 Range/Units 05:34 WBC 12.5 H (3.8-10.6) k/uL RBC 3.51 L (3.80-5.40) m/uL Hgb 10.9 L (11.4-16.0) gm/dL Hct 32.2 L (34.0-46.0) % Neutrophils # 8.1 H (1.3-7.7) k/uL Assessment and Plan Assessment: day #1. Doing well. Plan: Patient declines option for discharge home today. We'll likely discharge home tomorrow. in the nursery, not eligible for circumcision at this time. Will follow Time with Patient: Less than 30
[2018-11-07] MEDS: SENNOSIDES-DOCUSATE SODIUM 1 EACH TAB PO SCH ×2 (07:48→21:09)
[2018-11-07] MEDS: SERTRALINE 50 MG TAB PO SCH (09:36)
[2018-11-07 14:06] LABS: C. trachomatis,PCR Negative (Neg,Equiv); Chlamydia trachomatis Source Urine; N. gonorrhoeae,PCR Negative (Neg,Equiv); Neisseria Source Urine
[2018-11-08] MEDS: IBUPROFEN 600 MG TAB PO PRN ×2 (00:52→08:27)
[2018-11-08 08:24] VITALS: BP 133/76; PULSE 84; TEMP 98.6
[2018-11-08] MEDS: SENNOSIDES-DOCUSATE SODIUM 1 EACH TAB PO SCH (08:28)
[2018-11-08] MEDS: SERTRALINE 50 MG TAB PO SCH (08:28)
--- NOTE | 2018-11-08 09:02 | P.DS ---
Providers Date of admission: 11/06/18 00:53 Expected date of discharge: 11/08/18 Attending physician: Adriana Mejia Primary care physician: Stated None Hospital Course: This is a 28-year-old white female 4 para 3003 EDC 11/18/2018 at 38-2/7 weeks' gestation. Patient presented to our hospital, having had limited care at another institution. She was in active labor with spontaneous amniorrhexis. She went on to deliver a liveborn male infant with scores of 9 and 9 at one and 5 minutes respectively. Infant weighed 6 lbs. 7 oz. or 2940 g. Her history was significant for positive urine drug screen, group B strep cultures positive, blood type B positive. Please see dictated history and physical as well as delivery note for details. This morning the infant is in the nursery, exhibiting signs of withdrawal.. He is not judged to be in condition for discharge home at this time. The patient however is being discharged home in good condition. She has minimal lochia rubra, fundus is firm and in the midline, symmetric and 18 week size. Extremities are negative for edema. Breasts are not engorged. Patient is not breast-feeding. Her chest is clear. Patient will follow-up with her doctor, Dr. Hernandez in 6 weeks. I have reminded her no intercourse, tampons or douching. She is contemplating different options for contraception and we'll discuss this with her own strategic communications specialist as an outpatient. She will continue taking vitamins daily. I advised that she use [id number] Motrin, Advil or Aleve as needed for pain. She will follow-up with Dr. Hernandez with any fevers shakes or chills, foul smelling or copious lochia, with the passage of large blood clots, with any pain not alleviated by nxey-xva-xueuarr products, or indeed with any concerns. I have recommended that she continue taking her Zoloft, 150 mg daily. Patient Condition at Discharge: Good Plan - Discharge Summary Discharge Rx Participant: No New Discharge Prescriptions: No Action Oro-Wccf-Pjhyu Acid [-U Capsule (formulary)] 1 each PO DAILY @1200 #30 cap Sertraline [Zoloft] 150 mg PO HS Discharge Medication List Quo-Llfr-Tkkuy Acid [-U Capsule (formulary)] 1 each PO DAILY@ 1200 #30 cap 04/29/18 [Rx] Sertraline [Zoloft] 150 mg PO HS 11/06/18 [History]
== END 2018-11-08 13:37 | disposition home or self-care (01) | DRG 806 ==
LOC: FBPOP 00:25 → 4FBP 00:53
PROVIDERS: ADMIT Obstetrics & Gynecology Obstetrics; ATTEND Obstetrics & Gynecology Obstetrics
PROC: 10E0XZZ Delivery of Products of Conception, External Approach (ICD-10-PCS; principal; 2018-11-06)
PROC: 00HU33Z Insertion of Infusion Device into Spinal Canal, Percutaneous Approach (ICD-10-PCS; 2018-11-06)
PROC: 3E0R3BZ Introduction of Anesthetic Agent into Spinal Canal, Percutaneous Approach (ICD-10-PCS; 2018-11-06)
DX: O69.81X0 Labor and delivery complicated by cord around neck, without compression, not applicable or unspecified (principal); O71.4 Obstetric high vaginal laceration alone; Z37.0 Single live birth; O99.824 Streptococcus B carrier state complicating childbirth; O99.344 Other mental disorders complicating childbirth; Z3A.38 38 weeks gestation of pregnancy; F32.9 Major depressive disorder, single episode, unspecified; Z79.899 Other long term (current) drug therapy; Z90.49 Acquired absence of other specified parts of digestive tract; Z88.0 Allergy status to penicillin; Z81.8 Family history of other mental and behavioral disorders
CPT/HCPCS: 59025; 80306; 81001; 84112; 85025; 86850; 86900; 86901; 87491; 87591; 88307; 99213

== ENCOUNTER 2018-12-02 22:06 | Inpatient (IN) | payer OTHER ==
[2018-12-02] MEDS ORDERED: cefTRIAXone IN SWFI 1,000 MG/10 ML SYRINGE IVP STA (22:28)
[2018-12-02] MEDS ORDERED: SODIUM CHLORIDE 0.9% 1,000 ML IV ONE ×2 (22:28→23:47)
[2018-12-02] MEDS ORDERED: KETOROLAC 30 MG/ML 1 ML VIAL IVP STA (22:29)
--- NOTE | 2018-12-02 22:33 | ED ---
Fever HPI - General Source: patient Mode of arrival: ambulatory Limitations: no limitations <Kait Lee - Last Filed: 12/03/18 00:51> <Linda Casas - Last Filed: 12/03/18 03:07> - General Chief Complaint: Fever Stated Complaint: Fever Time Seen by Provider: 12/02/18 22:23 - History of Present Illness Initial Comments: 28-year-old female with past nuchal history of recent vaginal 4 weeks prior presents today for chief complaint of right-sided flank pain, dysuria. Patient states that she has had right-sided low back pain for a week as well as a fever. She states she also has body aches and a slight cough and has had on-and-off headache. Patient states she has had some hematuria as well as constipation, denies diarrhea or abdominal pain. Patient states she called her primary care provider today who sent over prescription for zithromax. Patient states that Patient denies history of kidney stones she denies any vaginal pain, concern for STD or vaginal discharge. Patient denies any neck stiffness, nausea, vomiting, photophobia, chest pain, shortness of breath, dyspnea on exertion, dizziness, visual changes or any other complaints. Upon arrival patient febrile, tachycardia present. (Kait Lee) - Related Data Home Medications Medication Instructions Recorded Confirmed Sertraline [Zoloft] 150 mg PO DAILY 11/06/18 12/03/18 OLANZapine [ZyPREXA] 5 mg PO DAILY PRN 12/02/18 12/02/18 OLANZapine [ZyPREXA] 5 mg PO HS 12/02/18 12/02/18 Allergies Allergy/AdvReac Type Severity Reaction Status Date / Time Penicillins Allergy Rash/Hives Verified 12/02/18 22:49 Review of Systems ROS Other: All systems not noted in ROS Statement are negative. <Kait Lee - Last Filed: 12/03/18 00:51> ROS Other: All systems not noted in ROS Statement are negative. <Linda Casas - Last Filed: 12/03/18 03:07> ROS Statement: Those systems with pertinent positive or pertinent negative responses have been documented in the HPI. Past Medical History Past Medical History: No Reported History History of Any Multi-Drug Resistant Organisms: None Reported Past Surgical History: Cholecystectomy Past Anesthesia/Blood Transfusion Reactions: No Reported Reaction Past Psychological History: Depression Smoking Status: Never smoker Past Alcohol Use History: Abuse Past Drug Use History: Cocaine, Marijuana, Opiates - Past Family History Mother Family Medical History: No Reported History Additional Family Medical History / Comment(s): Mother with depression. <Kait Lee - Last Filed: 12/03/18 00:51> General Exam Limitations: no limitations <Kait Lee - Last Filed: 12/03/18 00:51> - General Exam Comments Initial Comments: General: The patient is awake and alert, in no distress. Eye: +3 mm pupils are equal, round and reactive to light, extra-ocular movements are intact. No nystagmus. There is normal conjunctiva bilaterally. No signs of icterus. Ears, nose, mouth and throat: There are moist mucous membranes and no oral lesions. Neck: The neck is supple, there is no tenderness or JVD. Cardiovascular: There is a regular rate and rhythm. No murmur, rub or gallop is appreciated. Respiratory: Lungs are clear to auscultation, respirations are non-labored, breath sounds are equal. No wheezes, stridor, rales, or rhonchi. Gastrointestinal: No noted diaphoresis, jaundice, pallor, protecting postures or squirming. Symmetrical pigmentation of abdomen without signs of inflammation. Umbilicus mildline, inverted without swelling. No dilated veins. Abdomen contour obese, no noted abdominal distention. No visible masses. No peristalsis, aortic pulsations, or ventral hernia. Bowel sounds audible in all 4 quadrants, unremarkable. No tenderness to light or deep palpation of the abdomen, including suprapubic and pelvic regions. Liver edge, not palpable. Spleen edge, right and left kidney not palpable. Superior bladder margin non-tender. Special Testing: Negative Bryan, Rovsing, McBurney, Cameron, cutaneous hyperesthesia. Negative Heel Jar test. Right sided CVA tenderness. Digital rectal exam deferred. Negative manzano turners or cullens sign Pelvic Exam: Fulda well rugated mucosa. Minimal clear vaginal discharge. Small amount of blood. Os closed. No cervical motion tenderness, negative chandelier sign. No adnexal tenderness. No palpable masses. No external lesions. Musculoskeletal: Normal ROM, no tenderness. Strength 5/5. Sensation intact. Radial pulses equal bilaterally 2+. Neurological: A&O x 3. CN II-XII intact, There are no obvious motor or sensory deficits. Coordination appears grossly intact. Speech is normal. Skin: Skin is warm and dry and no rashes or lesions are noted. Psychiatric: Cooperative, appropriate mood & affect, normal judgment. (Kait Lee) Course Vital Signs 12/02/18 12/03/18 12/03/18 22:16 00:18 01:41 Temperature 103.1 F H 100.1 F H Pulse Rate 132 H 105 H Respiratory 18 19 19 Rate Blood Pressure 113/73 102/50 O2 Sat by Pulse 98 Oximetry 12/03/18 01:58 Temperature 97.7 F Pulse Rate 86 Respiratory 19 Rate Blood Pressure 95/62 O2 Sat by Pulse 100 Oximetry Medical Decision Making - Lab Data Result diagrams: 12/02/18 23:00 12/02/18 23:00 <Kait Lee - Last Filed: 12/03/18 00:51> - Lab Data Result diagrams: 12/02/18 23:00 12/02/18 23:00 <Linda Casas - Last Filed: 12/03/18 03:07> - Medical Decision Making 28yo female presenting today for cc of fever, right flank pain x 1 week. Pt febrile upon arrival. Concern for sepsis. 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 Pt given toradol. HR elevated. Pt given IVF. Blood cultures obtained. UA revealed nitrates and findings concerning for pyelonephritis with combination of right flank pain, and right CVA tenderness. Abdominal exam benign. Pelvic exam within normal limits no abnormality. Laboratory studies revealed leukocytosis with significant left shift. Pt given IV 1g ceftriaxone. Patient agreeable with admission for IV abx, IV fluids. I discussed the case with attending provider Dr. Casas who reviewed laboratory studies, agreeable with admission and plan at this time. Case was discussed with admitting provider Dr. Metcalf, no further instruction at this time. Admission accepted at 00:30. Patient transferred to the floor in stable condition. (Kait Lee) I personally saw and examined the patient. I reviewed and agree with the mid- level provider findings including all diagnostic interpretations and treatment plans as written. (Linda Casas) - Lab Data Lab Results 12/02/18 12/02/1812/02/19 Range/Units 23:00 23:00 23:00 WBC 17.2 H (3.8-10.6) k/uL RBC 3.59 L (3.80-5.40) m/uL Hgb 10.4 L (11.4-16.0) gm/dL Hct 33.0 L (34.0-46.0) % MCV 91.9 (80.0-100.0) fL MCH 28.9 (25.0-35.0) pg MCHC 31.4 (31.0-37.0) g/dL RDW 13.3 (11.5-15.5) % Plt Count 351 (150-450) k/uL Neutrophils % 87 % Lymphocytes % 5 % Monocytes % 6 % Eosinophils % 1 % Basophils % 0 % Neutrophils # 14.9 H (1.3-7.7) k/uL Lymphocytes # 0.9 L (1.0-4.8) k/uL Monocytes # 1.1 H (0-1.0) k/uL Eosinophils # 0.2 (0-0.7) k/uL Basophils # 0.0 (0-0.2) k/uL Sodium 140 (137-145) mmol/L Potassium 4.0 (3.5-5.1) mmol/L Chloride 108 H (98-107) mmol/L Carbon Dioxide 22 (22-30) mmol/L Anion Gap 10 mmol/L BUN 8 (7-17) mg/dL Creatinine 0.60 (0.52-1.04) mg/dL Est GFR (CKD-EPI)AfAm >90 (>60 ml/min/1.73 sqM) Est GFR (CKD-EPI)NonAf >90 (>60 ml/min/1.73 sqM) Glucose 114 H (74-99) mg/dL Calcium 8.0 L (8.4-10.2) mg/dL Total Bilirubin 0.6 (0.2-1.3) mg/dL AST 26 (14-36) U/L ALT 28 (9-52) U/L Alkaline Phosphatase 178 H (38-126) U/L Total Protein 6.0 L (6.3-8.2) g/dL Albumin 3.3 L (3.5-5.0) g/dL Urine Color Yellow Urine Appearance Cloudy H (Clear) Urine pH 6.0 (5.0-8.0) Ur Specific Hollenberg 1.018 (1.001-1.035) Urine Protein 1+ H (Negative) Urine Glucose (UA) Negative (Negative) Urine Ketones Negative (Negative) Urine Blood Trace H (Negative) Urine Nitrite Positive H (Negative) Urine Bilirubin Negative (Negative) Urine Urobilinogen 2.0 (<2.0) mg/dL Ur Leukocyte Esterase Moderate H (Negative) Urine RBC 13 H (0-5) /hpf Urine WBC 49 H (0-5) /hpf Urine WBC Clumps Rare H (None) /hpf Ur Squamous Epith Cells 9 H (0-4) /hpf Urine Bacteria Occasional H (None) /hpf Urine Mucus Rare H (None) /hpf Urine HCG, Qual (Not Detectd) Influenza Type A RNA (Not Detectd) Influenza Type B (PCR) (Not Detectd) 12/02/18 12/02/18 Range/Units 23:00 23:20 WBC (3.8-10.6) k/uL RBC (3.80-5.40) m/uL Hgb (11.4-16.0) gm/dL Hct (34.0-46.0) % MCV (80.0-100.0) fL MCH (25.0-35.0) pg MCHC (31.0-37.0) g/dL RDW (11.5-15.5) % Plt Count (150-450) k/uL Neutrophils % % Lymphocytes % % Monocytes % % Eosinophils % % Basophils % % Neutrophils # (1.3-7.7) k/uL Lymphocytes # (1.0-4.8) k/uL Monocytes # (0-1.0) k/uL Eosinophils # (0-0.7) k/uL Basophils # (0-0.2) k/uL Sodium (137-145) mmol/L Potassium (3.5-5.1) mmol/L Chloride (98-107) mmol/L Carbon Dioxide (22-30) mmol/L Anion Gap mmol/L BUN (7-17) mg/dL Creatinine (0.52-1.04) mg/dL Est GFR (CKD-EPI)AfAm (>60 ml/min/1.73 sqM) Est GFR (CKD-EPI)NonAf (>60 ml/min/1.73 sqM) Glucose (74-99) mg/dL Calcium (8.4-10.2) mg/dL Total Bilirubin (0.2-1.3) mg/dL AST (14-36) U/L ALT (9-52) U/L Alkaline Phosphatase (38-126) U/L Total Protein (6.3-8.2) g/dL Albumin (3.5-5.0) g/dL Urine Color Urine Appearance (Clear) Urine pH (5.0-8.0) Ur Specific Hollenberg (1.001-1.035) Urine Protein (Negative) Urine Glucose (UA) (Negative) Urine Ketones (Negative) Urine Blood (Negative) Urine Nitrite (Negative) Urine Bilirubin (Negative) Urine Urobilinogen (<2.0) mg/dL Ur Leukocyte Esterase (Negative) Urine RBC (0-5) /hpf Urine WBC (0-5) /hpf Urine WBC Clumps (None) /hpf Ur Squamous Epith Cells (0-4) /hpf Urine Bacteria (None) /hpf Urine Mucus (None) /hpf Urine HCG, Qual Not Detected (Not Detectd) Influenza Type A RNA Not Detected (Not Detectd) Influenza Type B (PCR) Not Detected (Not Detectd) Disposition Is patient prescribed a controlled substance at d/c from ED?: No Time of Disposition: 00:41 Decision to Admit Reason: Admit from EC Decision Date: 12/03/18 Decision Time: 00:41 <Kait Lee L - Last Filed: 12/03/18 00:51> <Linda Casas P - Last Filed: 12/03/18 03:07> Clinical Impression: Sepsis, Pyelonephritis Disposition: ADMITTED IP TO THIS HOSP Condition: Stable
[2018-12-02 23:27] LABS: Basophils % (A) 0 %; Eosinophils # (A) 0.2 k/uL (0-0.7); Eosinophils % (A) 1 %; HGB 10.4 gm/dL (11.4-16.0); Lymphocytes # (A) 0.9 k/uL (1.0-4.8); Lymphocytes % (A) 5 %; MCH 28.9 pg (25.0-35.0); MCHC 31.4 g/dL (31.0-37.0); MCV 91.9 fL (80.0-100.0); Monocytes # (A) 1.1 k/uL (0-1.0); Monocytes % (A) 6 %; Neutrophils # (A) 14.9 k/uL (1.3-7.7); Neutrophils % (A) 87 %; Platelet Count 351 k/uL (150-450); RBC 3.59 m/uL (3.80-5.40); RDW 13.3 % (11.5-15.5); WBC 17.2 k/uL (3.8-10.6)
[2018-12-02 23:32] LABS: ALT 28 U/L (9-52); AST 26 U/L (14-36); Albumin 3.3 g/dL (3.5-5.0); Alkaline Phosphatase 178 U/L (38-126); Anion Gap 10 mmol/L; Blood Urea Nitrogen 8 mg/dL (7-17); Carbon Dioxide 22 mmol/L (22-30); Chloride 108 mmol/L (98-107); Glucose 114 mg/dL (74-99); Sodium 140 mmol/L (137-145); Total Bilirubin 0.6 mg/dL (0.2-1.3)
[2018-12-02 23:53] LABS: Appearance,Urine Cloudy (Clear); Bacteria,Urine Occasional /hpf; Bilirubin,Urine Negative (Negative); Blood,Urine Trace (Negative); Color,Urine Yellow; Glucose,Urine (UA) Negative (Negative); Ketones,Urine Negative (Negative); Leukocyte Esterase,Urine Moderate (Negative); Mucus,Urine Rare /hpf; Nitrite,Urine Positive (Negative); Protein,Urine 1+ (Negative); RBC,Urine 13 /hpf (0-5); Specific Gravity,Urine 1.018 (1.001-1.035); Squamous Epithelial Cell,Urine 9 /hpf (0-4); WBC,Urine 49 /hpf (0-5)
[2018-12-03] MEDS ORDERED: ACETAMINOPHEN TAB 325 MG TAB PO STA (00:03)
--- NOTE | 2018-12-03 00:05 | XR ---
EXAM: XR Abdomen, 1 View CLINICAL HISTORY: ITS.REASON XR Reason: r flank pain TECHNIQUE: Frontal supine view of the abdomen/pelvis. COMPARISON: None FINDINGS: Hardware: None. Abdomen: Nonobstructive bowel gas pattern. No free air. Large amount of stool throughout the colon and rectum may represent constipation. Cholecystectomy clips in the right upper quadrant. Bones: Normal. Soft tissues: Normal. Lower chest: Mild elevation of the right mid diaphragm. IMPRESSION: Nonobstructive bowel gas pattern. No free air. Large amount of stool throughout the colon and rectum may represent constipation.
[2018-12-03] MEDS ORDERED: ONDANSETRON 4 MG/2 ML VIAL IVP PRN (00:28)
[2018-12-03] MEDS ORDERED: NALOXONE 0.4 MG/ML 1 ML VIAL IV PRN (00:28)
[2018-12-03] MEDS ORDERED: SODIUM CHLORIDE 0.9% 500 ML 500 ML IV ONE (00:40)
--- NOTE | 2018-12-03 01:53 | P.HPIM ---
History of Present Illness H&P Date: 12/03/18 Chief Complaint: Fevers back pain 28-year-old female with no significant past medical history patient gave to a healthy baby boy 4 weeks ago Patient presented with a few day history of low back pain mainly in the right flank associated with fevers and chills denies any dysuria or hematuria denies any diarrhea or bloody bowel movement denies any vaginal discharge denies any chest pain coughing shortness of breath or any flulike symptoms. Reports some nausea but no vomiting. Denies any radiation to the pain. She reports that the pain was off-and-on sharp in nature 8 out of 10 in severity. In the ED she was found to have a temperature of 103. Urine analysis was positive patient is admitted for treatment of sepsis secondary to pyelonephritis. Patient is AL LERGIC to penicillin causes rash however she tolerated cephalosporin Rocephin Review of Systems Pertinent positives as noted in HPI. All other systems were reviewed and are negative Past Medical History Past Medical History: No Reported History History of Any Multi-Drug Resistant Organisms: None Reported Past Surgical History: Cholecystectomy Past Anesthesia/Blood Transfusion Reactions: No Reported Reaction Past Psychological History: Depression Smoking Status: Never smoker Past Alcohol Use History: Abuse Past Drug Use History: Cocaine, Marijuana, Opiates - Past Family History Mother Family Medical History: No Reported History Additional Family Medical History / Comment(s): Mother with depression. Medications and Allergies Home Medications Medication Instructions Recorded Confirmed Type Sertraline [Zoloft] 150 mg PO HS 11/06/18 12/02/18 History OLANZapine [ZyPREXA] 5 mg PO DAILY PRN 12/02/18 12/02/18 History OLANZapine [ZyPREXA] 5 mg PO HS 12/02/18 12/02/18 History Allergies Allergy/AdvReac Type Severity Reaction Status Date / Time Penicillins Allergy Rash/Hives Verified 12/02/18 22:49 Physical Exam Vitals: Vital Signs Temp Pulse Resp BP Pulse Ox 12/03/18 00:18 100.1 F H 105 H 19 102/50 98 12/02/18 22:16 103.1 F H 132 H 18 113/73 Intake and Output 12/02/18 12/02/18 12/03/18 14:59 22:59 06:59 Other: Weight 70.307 kg Constitutional: No acute distress, conversant, pleasant Eyes: Anicteric sclerae, moist conjunctiva, no lid-lag Pupils equal round reactive to light ENMT: NC/AT Oropharynx clear, no erythema, exudates Neck: Supple, FROM, no masses, or JVD No carotid bruits No thyromegaly Lungs: Clear to auscultation Clear to percussion Normal respiratory effort, no accessory muscle use Cardiovascular: Heart regular in rate and rhythm, No murmurs, gallops, or rubs No peripheral edema Abdominal: Soft, tenderness to tapping over the costal vertebral angle on the right side Nontender, no guarding, rebound or rigidity Abdomen moving with respiration Normoactive bowel sounds No hepatomegaly, No splenomegaly No palpable mass No abdominal wall hernia noted Skin: Normal temperature, tone, texture, turgor No induration No subcutaneous nodules No rash, lesions No ulcers Extremities: No digital cyanosis No clubbing Pedal pulses intact and symmetrical Radial pulses intact and symmetrical No calf tenderness Psychiatric: Alert and oriented to person, place and time Appropriate affect fair judgment Neuro Muscles Strength 5/5 in all 4 extremities Sensation to light touch grossly present throughout Cranial nerves II-XII grossly intact No focal sensory deficits Lymphatics: no palpable cervical or supraclavicular , or inguinal lymph nodes Results CBC & Chem 7: 12/02/18 23:00 12/02/18 23:00 Labs: Abnormal Lab Results - Last 24 Hours (Table) 12/02/18 12/02/18 12/02/18 Range/Units 23:00 23:00 23:00 WBC 17.2 H (3.8-10.6) k/uL RBC 3.59 L (3.80-5.40) m/uL Hgb 10.4 L (11.4-16.0) gm/dL Hct 33.0 L (34.0-46.0) % Neutrophils # 14.9 H (1.3-7.7) k/uL Lymphocytes # 0.9 L (1.0-4.8) k/uL Monocytes # 1.1 H (0-1.0) k/uL Chloride 108 H (98-107) mmol/L Glucose 114 H (74-99) mg/dL Plasma Lactic Acid Roshan (0.7-2.0) mmol/L Calcium 8.0 L (8.4-10.2) mg/dL Alkaline Phosphatase 178 H (38-126) U/L Total Protein 6.0 L (6.3-8.2) g/dL Albumin 3.3 L (3.5-5.0) g/dL Urine Appearance Cloudy H (Clear) Urine Protein 1+ H (Negative) Urine Blood Trace H (Negative) Urine Nitrite Positive H (Negative) Ur Leukocyte Esterase Moderate H (Negative) Urine RBC 13 H (0-5) /hpf Urine WBC 49 H (0-5) /hpf Urine WBC Clumps Rare H (None) /hpf Ur Squamous Epith Cells 9 H (0-4) /hpf Urine Bacteria Occasional H (None) /hpf Urine Mucus Rare H (None) /hpf 12/03/18 Range/Units 00:14 WBC (3.8-10.6) k/uL RBC (3.80-5.40) m/uL Hgb (11.4-16.0) gm/dL Hct (34.0-46.0) % Neutrophils # (1.3-7.7) k/uL Lymphocytes # (1.0-4.8) k/uL Monocytes # (0-1.0) k/uL Chloride (98-107) mmol/L Glucose (74-99) mg/dL Plasma Lactic Acid Roshan 0.5 L (0.7-2.0) mmol/L Calcium (8.4-10.2) mg/dL Alkaline Phosphatase (38-126) U/L Total Protein (6.3-8.2) g/dL Albumin (3.5-5.0) g/dL Urine Appearance (Clear) Urine Protein (Negative) Urine Blood (Negative) Urine Nitrite (Negative) Ur Leukocyte Esterase (Negative) Urine RBC (0-5) /hpf Urine WBC (0-5) /hpf Urine WBC Clumps (None) /hpf Ur Squamous Epith Cells (0-4) /hpf Urine Bacteria (None) /hpf Urine Mucus (None) /hpf Assessment and Plan Assessment: 28-year-old femalesignificant past medical history gave to a healthy baby boy 4 weeks ago admitted as an inpatient with anticipated length of stay more than 4 weeks for sepsis secondary to acute pyelonephritis Plan: Sepsis secondary to acute pyelonephritis IV fluid hydration Rocephin tolerated well Pain control Follow-up blood culture and urine culture Pain control Anemia Denies any GI bleeding Most likely secondary to recent and delivery Follow-up levels DVT prophylaxis Heparin subcu 3 times a day Preformed a thorough record review from recent hospitalization for normal vaginal delivery 4 weeks ago, patient has history of drug use, baby is still at the hospital Surrogate decision-maker: Patient CODE STATUS: Full code Discussed with: Patient, ER, RN Anticipated discharge: 48-[address]: Home A total of 60 minutes was spent on the care of this complex patient more than 50% of the time was spent in counseling and care coordination.
[2018-12-03 02:25] VITALS: BMI 26.6
[2018-12-03] MEDS: MORPHINE SULFATE 4 MG/ML SYRINGE IV PRN ×3 (02:44→10:20)
[2018-12-03] MEDS: SODIUM CHLORIDE 0.9% 1,000 ML IV SCH ×3 (04:02→23:52)
[2018-12-03] MEDS: IBUPROFEN 400 MG TAB PO PRN ×2 (07:38→14:17)
[2018-12-03 09:05] LABS: Amphetamine Screen,Urine Not Detected (NotDetected); Barbiturate Screen,Urine Not Detected (NotDetected); Benzodiazepines Screen,Urine Not Detected (NotDetected); Cocaine Screen,Urine Not Detected (NotDetected); Methadone Screen, Urine Not Detected (NotDetected); Opiate Screen,Urine Not Detected (NotDetected); Oxycodone Screen, Urine Not Detected (NotDetected); Phencyclidine Screen,Urine Not Detected (NotDetected); Tricyclic Antidepressant,Urine Not Detected (NotDetected); Urn Cannabinoid Scrn Not Detected (NotDetected)
[2018-12-03] MEDS: NICOTINE 21MG/24HR PATCH TRANSDERM SCH (10:21)
[2018-12-03] MEDS: OLANZapine 5 MG TAB PO PRN (10:27)
[2018-12-03] MEDS: SERTRALINE 100 MG TAB PO SCH (10:27)
[2018-12-03] MEDS: Acetaminophen-Codeine 300-30mg TAB PO PRN ×3 (14:17→21:10)
[2018-12-03 15:01] LABS: N. gonorrhoeae,PCR Negative (Neg,Equiv); Neisseria Source Vagina
[2018-12-03 15:04] LABS: C. trachomatis,PCR Negative (Neg,Equiv); Chlamydia trachomatis Source Vagina
--- NOTE | 2018-12-03 16:37 | P.PN ---
Progress Note - Text Progress Note Date: 12/03/18 Hospitalist Interval Note Patient seen and examined at bedside. Patient seen and examined at bedside. Still having pain with deep inspiration. Pain is in her right back. Also complains of a headache and some riders. Denies any nausea or vomiting. Tolerating her diet well. Still having significant pain. Not breast-feeding. Baby is still in hospital due to withdrawal symptoms Vital signs reviewed General: ill appearing, no distress, appears at stated age Derm: warm, dry Head: atraumatic, normocephalic, symmetric Eyes: EOMI, no lid lag, anicteric sclera Mouth: no lip lesion, mucus membranes moist Cardiovascular: S1S2 reg, no murmur, positive posterior tibial pulse bilateral, Lungs: CTA bilateral, no rhonchi, no rales , no accessory muscle use Abdominal: soft, nontender to palpation, no guarding, no appreciable organomegaly, + CVA tenderness on right Ext: no gross muscle atrophy, no edema, no contractures Neuro: CN II-XI grossly intact, no focal neuro deficits Psych: Alert, oriented, appropriate affect Assessment/Plan: 1. Pyelonephritis with sepsis- continue rocephin, await cultures (blood and urine), continue fluids, limit IV narcotics with hx of narcotic abuse 2. Tobacco abuse- cessation, nicotine replacement 3. Anemia- repeat CBC in AM, likely due to recent delivery Likely home once culture results available This is an update note for patient , for full note on 12/03 see see H and P. There is no charge associated with this note.
[2018-12-03] MEDS ORDERED: POLYETHYLENE GLYCOL 3350 17 GM POWD.PACK PO STA (16:38)
[2018-12-03] MEDS: KETOROLAC 30 MG/ML 1 ML VIAL IVP SCH ×2 (17:55→23:52)
[2018-12-03] MEDS: OLANZapine 5 MG TAB PO SCH (21:12)
[2018-12-03] MEDS: ACETAMINOPHEN TAB 325 MG TAB PO PRN (23:57)
[2018-12-04] MEDS: Acetaminophen-Codeine 300-30mg TAB PO PRN ×5 (01:14→21:04)
[2018-12-04] MEDS: MORPHINE SULFATE 4 MG/ML SYRINGE IV PRN ×3 (04:15→22:57)
[2018-12-04] MEDS: KETOROLAC 30 MG/ML 1 ML VIAL IVP SCH ×3 (06:29→18:08)
[2018-12-04] MEDS: SERTRALINE 100 MG TAB PO SCH (08:13)
[2018-12-04] MEDS: NICOTINE 21MG/24HR PATCH TRANSDERM SCH (08:13)
[2018-12-04] MEDS: OLANZapine 5 MG TAB PO PRN (08:13)
[2018-12-04] MEDS: SODIUM CHLORIDE 0.9% 1,000 ML IV SCH ×2 (08:14→16:18)
[2018-12-04 08:42] LABS: HCT 32.1 % (34.0-46.0); HGB 10.1 gm/dL (11.4-16.0); Hypochromasia Moderate; MCH 29.7 pg (25.0-35.0); MCHC 31.4 g/dL (31.0-37.0); MCV 94.4 fL (80.0-100.0); Mean Platelet Volume 6.6; Platelet Count 353 k/uL (150-450); RDW 13.4 % (11.5-15.5); WBC 13.8 k/uL (3.8-10.6)
[2018-12-04 08:59] LABS: Sodium 142 mmol/L (137-145)
[2018-12-04 09:02] LABS: Anion Gap 7 mmol/L; Blood Urea Nitrogen 10 mg/dL (7-17); Calcium 7.9 mg/dL (8.4-10.2); Carbon Dioxide 23 mmol/L (22-30); Chloride 112 mmol/L (98-107); Glucose 121 mg/dL (74-99)
[2018-12-04] MEDS: ACETAMINOPHEN TAB 325 MG TAB PO PRN (10:12)
--- NOTE | 2018-12-04 15:22 | P.PN ---
Subjective Progress Note Date: 12/04/18 Principal diagnosis: Polynephritis Patient seen and examined. No acute events overnight. Patient continues to complain of right-sided and flank pain. She complains of decreased urinary frequency but no dysuria or hematuria. Patient reports intermittent fever and chills throughout the night. Pain is currently 5 out of 10 in severity, well controlled with Toradol. She denies any nausea or vomiting. She denies any chest pain, shortness of breath or palpitations. Objective - Vital Signs Vital signs: Vital Signs Temp 98.4 F 12/04/18 14:00 Pulse 99 12/04/18 14:00 Resp 18 12/04/18 14:00 BP 126/86 12/04/18 14:00 Pulse Ox 97 12/04/18 14:00 Intake & Output 12/03/18 12/04/18 12/04/18 18:59 06:59 18:59 Output Total 1400 650 Balance -1400 -650 Output: Urine 1400 650 Other: Voiding Method Toilet Toilet # Voids 2 1 2 - Exam General: [non toxic], [no distress], [appears at stated age] Derm: [warm], [dry] Head: [atraumatic], [normocephalic], [symmetric] Eyes: [EOMI], [no lid lag], [anicteric sclera] Mouth: [no lip lesion], [mucus membranes moist] Cardiovascular: [S1S2 reg], [tachycardia], [positive posterior tibial pulse bilateral], Lungs: [CTA bilateral], [no rhonchi, no rales] , [no accessory muscle use] Abdominal: [soft], [right-sided CVA tenderness], [no guarding], [no appreciable organomegaly] Ext: [no gross muscle atrophy], [no edema], [no contractures] Neuro: [ CN II-XI grossly intact], [no focal neuro deficits] Psych: [Alert], [oriented], [appropriate affect] - Labs CBC & Chem 7: 12/04/18 08:18 12/04/18 08:18 Labs: Abnormal Lab Results - Last 24 Hours (Table) 12/04/18 12/04/18 Range/Units 08:18 08:18 WBC 13.8 H (3.8-10.6) k/uL RBC 3.40 L (3.80-5.40) m/uL Hgb 10.1 L (11.4-16.0) gm/dL Hct 32.1 L (34.0-46.0) % Chloride 112 H (98-107) mmol/L Glucose 121 H (74-99) mg/dL Calcium 7.9 L (8.4-10.2) mg/dL Microbiology - Last 24 Hours (Table) 12/02/18 23:00 Urine Culture - Preliminary Urine,Voided Gram Neg Bacilli 12/03/18 01:00 Gram Stain - Final Vaginal Genital Culture - Preliminary 12/02/18 23:00 Blood Culture - Preliminary Blood No Growth after 24 hours Assessment and Plan Assessment: Assessment and Plan 1. Sepsis likely secondary to pyelonephritis 2. Anemia 3. Smoker 1. Patient meets initial criteria for sepsis (HR > 100, fever, leukocytosis with source of infection). Leukocytosis from 17.2-13.8, T-max 100.1 Fahrenheit 12/04/2018. Lactic acid within normal limits. Abdominal x-ray shows constipation. UA shows positive nitrites and moderate leukocyte esterase. Urine culture positive for gram-negative bacilli. Blood cultures preliminary negative at 24 hours. Pain management with T3, Tylenol, ibuprofen, Toradol IV, morphine IV. Zofran as needed for nausea or vomiting. Continue ceftriaxone 1 g IV daily. Will follow urine culture, blood culture. 2. Hemoglobin 10.4-10.1, normocytic. Chronic in nature. Daily CBC. 3. Nicotine patch. Patient admitted for pyelonephritis. Urine cultures are pending. Patient is pending clinical improvement. Likely DC in 1-2 days.
[2018-12-04] MEDS: OLANZapine 5 MG TAB PO SCH (21:16)
[2018-12-05] MEDS: Acetaminophen-Codeine 300-30mg TAB PO PRN ×4 (03:18→19:43)
[2018-12-05] MEDS: SODIUM CHLORIDE 0.9% 1,000 ML IV SCH ×3 (03:20→19:42)
[2018-12-05] MEDS: IBUPROFEN 400 MG TAB PO PRN ×4 (05:07→23:06)
[2018-12-05] MEDS: MORPHINE SULFATE 4 MG/ML SYRINGE IV PRN ×3 (06:52→22:02)
[2018-12-05] MEDS: SERTRALINE 100 MG TAB PO SCH (09:23)
[2018-12-05] MEDS: NICOTINE 21MG/24HR PATCH TRANSDERM SCH (09:24)
[2018-12-05] MEDS: OLANZapine 5 MG TAB PO PRN (09:24)
[2018-12-05] MEDS ORDERED: PIPERACILLIN-TAZOBACTAM 3.375 GM in SODIUM CHLORIDE 0.9% 100 ML IVPB SCH (12:00)
--- NOTE | 2018-12-05 17:24 | P.PN ---
Subjective Progress Note Date: 12/05/18 Principal diagnosis: Pyelonephritis Patient was seen and examined. No acute events overnight. Patient reports right-sided flank pain. She denies any abdominal pain or any dysuria or hematuria. Patient continues to report some chills. She denies any chest pain, shortness of breath or palpitations. Objective - Vital Signs Vital signs: Vital Signs Temp 98.0 F 12/05/18 16:17 Pulse 71 12/05/18 16:17 Resp 16 12/05/18 16:17 BP 116/79 12/05/18 16:17 Pulse Ox 96 12/05/18 16:17 Intake & Output 12/04/18 12/05/18 12/05/18 18:59 06:59 18:59 Intake Total 600 Balance 600 Intake: Oral 600 Other: Voiding Method Toilet # Voids 2 1 2 - Exam General: [non toxic], [no distress], [appears at stated age] Derm: [warm], [dry] Head: [atraumatic], [normocephalic], [symmetric] Eyes: [EOMI], [no lid lag], [anicteric sclera] Mouth: [no lip lesion], [mucus membranes moist] Cardiovascular: [S1S2 reg], [tachycardia], [positive posterior tibial pulse bilateral], Lungs: [CTA bilateral], [no rhonchi, no rales] , [no accessory muscle use] Abdominal: [soft], [right-sided CVA tenderness], [no guarding], [no appreciable organomegaly] Ext: [no gross muscle atrophy], [no edema], [no contractures] Neuro: [ CN II-XI grossly intact], [no focal neuro deficits] Psych: [Alert], [oriented], [appropriate affect] - Labs CBC & Chem 7: 12/04/18 08:18 12/04/18 08:18 Labs: Microbiology - Last 24 Hours (Table) 12/02/18 23:00 Urine Culture - Final Urine,Voided Escherichia coli 12/02/18 23:00 Blood Culture - Preliminary Blood No Growth after 48 hours Assessment and Plan Assessment: Assessment and Plan 1. Sepsis likely secondary to pyelonephritis 2. Anemia 3. Smoker 1. Patient meets initial criteria for sepsis (HR > 100, fever, leukocytosis with source of infection). Leukocytosis from 17.2-13.8, T-max 100.1 [facility]. Lactic acid within normal limits. Abdominal x-ray shows const ipation. UA shows positive nitrites and moderate leukocyte esterase. Urine culture positive for gram-negative bacilli, sensitive to Zosyn and resistant to ceftriaxone. Blood cultures preliminary negative at 24 hours. Pain management with T3, Tylenol, ibuprofen, Toradol IV, morphine IV. Zofran as needed for nausea or vomiting. DC ceftriaxone and start Zosyn IV. Will follow urine culture, blood culture. 2. Hemoglobin 10.4-10.1, normocytic. Chronic in nature. Daily CBC. 3. Nicotine patch. Patient admitted for pyelonephritis. T-max 102.9 at 3 AM today. Antibiotics were switched to something more specific given culture results. Patient is pending clinical improvement. Likely DC in 1-2 days.
[2018-12-05] MEDS: ERTAPENEM 1 GM in SODIUM CHLORIDE 0.9% 50 ML IVPB SCH (19:46)
[2018-12-05] MEDS: OLANZapine 5 MG TAB PO SCH (21:40)
[2018-12-06] MEDS: Acetaminophen-Codeine 300-30mg TAB PO PRN ×3 (02:08→17:35)
[2018-12-06] MEDS: MORPHINE SULFATE 4 MG/ML SYRINGE IV PRN ×4 (04:14→21:22)
[2018-12-06] MEDS: IBUPROFEN 400 MG TAB PO PRN ×2 (04:15→10:32)
[2018-12-06] MEDS: SODIUM CHLORIDE 0.9% 1,000 ML IV SCH ×2 (04:21→17:38)
[2018-12-06 09:15] LABS: HCT 31.1 % (34.0-46.0); HGB 9.7 gm/dL (11.4-16.0); Hypochromasia Slight; MCH 28.8 pg (25.0-35.0); Mean Platelet Volume 7.1; Platelet Count 364 k/uL (150-450); RBC 3.35 m/uL (3.80-5.40); RDW 13.8 % (11.5-15.5); WBC 7.6 k/uL (3.8-10.6)
[2018-12-06 09:18] LABS: Anion Gap 9 mmol/L; Blood Urea Nitrogen 10 mg/dL (7-17); Calcium 8.2 mg/dL (8.4-10.2); Carbon Dioxide 23 mmol/L (22-30); Chloride 110 mmol/L (98-107); Glucose 145 mg/dL (74-99); Sodium 142 mmol/L (137-145)
[2018-12-06] MEDS: NICOTINE 21MG/24HR PATCH TRANSDERM SCH (09:41)
[2018-12-06] MEDS: OLANZapine 5 MG TAB PO PRN (09:42)
[2018-12-06] MEDS: SERTRALINE 100 MG TAB PO SCH (09:42)
--- NOTE | 2018-12-06 12:34 | P.PN ---
Subjective Progress Note Date: 12/06/18 Patient eating okay didn't denies any nausea or vomiting, does complain of right CVA tenderness, apparently the patient has a history of drug abuse and has here in the NICU has been having withdrawals from opiates and benzodiazepines, patient denies any recent drug abuse and recent UDS confirms th at, patient afebrile for greater than 24 hours. Positive ESBL patient and contact precautions. Denies history of repeated antibiotic use, or recurrent UTIs. Objective - Vital Signs Vital signs: Vital Signs Temp 97.7 F 12/06/18 08:20 Pulse 67 12/06/18 08:20 Resp 16 12/06/18 08:20 BP 119/81 12/06/18 08:20 Pulse Ox 95 12/06/18 08:20 Intake & Output 12/05/18 12/06/18 12/06/18 18:59 06:59 18:59 Intake Total 1200 Balance 1200 Intake: Oral 1200 Other: Voiding Method Toilet # Voids 2 2 - Exam Constitutional: No acute distress, conversant, pleasant Eyes: Anicteric sclerae, moist conjunctiva, no lid-lag, PERRLA ENMT: NC/AT,Oropharynx clear, no erythema, exudates Neck:Supple, FROM, no masses, or JVD, No carotid bruits; No thyromegaly Lungs: Clear to auscultation, Clear to percussion, Normal respiratory effort, no accessory muscle use Cardiovascular: Heart regular in rate and rhythm, No murmurs, gallops, or rubs no peripheral edema Abdominal: Soft Nontender, nom distended, no guarding, no rebound or rigidity, Normoactive bowel sounds No hepatomegaly, No splenomegaly, R CVAtenderness Skin: Normal temperature, tone, texture, turgor, No induration No subcutaneous nodules, No rash, lesions, No ulcers Extremities:No digital cyanosis No clubbing, Pedal pulses intact and symmetrical Radial pulses intact and symmetrical Normal gait and station, No calf tenderness Psychiatric: Alert and oriented to person, place and time, Appropriate affect Intact judgement Neuro: Muscles Strength 5/5 in all 4 extremities, Sensation to light touch grossly present throughout, Cranial nerves II-XII grossly intact. No focal sensory deficits - Labs CBC & Chem 7: 12/06/18 08:53 12/06/18 08:53 Labs: Abnormal Lab Results - Last 24 Hours (Table) 12/06/18 12/06/18 Range/Units 08:53 08:53 RBC 3.35 L (3.80-5.40) m/uL Hgb 9.7 L (11.4-16.0) gm/dL Hct 31.1 L (34.0-46.0) % Chloride 110 H (98-107) mmol/L Glucose 145 H (74-99) mg/dL Calcium 8.2 L (8.4-10.2) mg/dL Microbiology - Last 24 Hours (Table) 12/02/18 23:00 Blood Culture - Preliminary Blood No Growth after 72 hours 12/02/18 23:00 Urine Culture - Final Urine,Voided Escherichia coli Assessment and Plan (1) Sepsis Narrative/Plan: * Secondary to ESBL UTI * Afebrile and leukocytosis improving * Continue treatment with Invanz * Appreciate ID recommendations Current Visit: Yes Status: Acute Code(s): A41.9 - SEPSIS, UNSPECIFIED ORGANISM SNOMED Code(s): 93957703 (2) Infection due to ESBL-producing Escherichia coli Narrative/Plan: * Continue antibiotic regimen with Invanz will need 14 days total of IV antib iotics * We'll schedule PICC placement and set up outpatient antibiotics Current Visit: Yes Status: Acute Code(s): A49.8 - OTHER BACTERIAL INFECTIONS OF UNSPECIFIED SITE; Z16.12 - EXTENDED SPECTRUM BETA LACTAMASE (ESBL) RESISTANCE SNOMED Code(s): 109709868 (3) Pyelonephritis Narrative/Plan: * Antibiotic regimen as above * Patient afebrile, leukocytosis final resolving Current Visit: Yes Status: Acute Code(s): N12 - TUBULO-INTERSTITIAL NEPHRITIS, NOT SPCF ACUTE OR CHRONIC SNOMED Code(s): 05065888 (4) anemia Narrative/Plan: * We'll need iron replacement oral ferrous sulfate Current Visit: Yes Status: Acute Code(s): O90.81 - ANEMIA OF THE PUERPERIUM SNOMED Code(s): 715592906 Plan: Disposition * Anticipated discharge in 1-2 days
--- NOTE | 2018-12-06 17:21 | US ---
EXAMINATION TYPE: US renals and bladder DATE OF EXAM: 12/06/2018 COMPARISON: NONE CLINICAL HISTORY: recurrent uti, pyelonephritis, sepsis EXAM MEASUREMENTS: Right Kidney: 12.3 x 5.3 x 5.3 cm Left Kidney: 11.2 x 5.1 x 5.3 cm Right Kidney: Inferior pole slightly obscured by bowel gas, no hydronephrosis or masses seen Left Kidney: Inferior pole slightly obscured by bowel gas, no hydronephrosis or masses seen Bladder: wnl IMPRESSION: Normal renal sonogram. No evidence of renal mass or obstruction. Normal urinary bladder.
[2018-12-06] MEDS: FERROUS SULFATE 325 MG TAB PO SCH (17:36)
--- NOTE | 2018-12-06 19:35 | CONS ---
CONSULTATION DATE OF SERVICE: 12/06/2018. REASON FOR CONSULTATION: ESBL E coli urinary tract infection, pyelonephritis. HISTORY OF PRESENT ILLNESS: The patient is a 28-year-old female presenting to the ER at [facility] on 12/02/2018 with chief complaints of fever and right-sided flank pain along with dysuria. The patient recently did have a vaginal 4 days prior to presentation with these symptoms. The patient's symptom initially started with a fever on a Saturday that was 4 days before she was admitted to the hospital. Patient did have fever of 101 to 102 degrees Fahrenheit. The patient said did not respond to oral Tylenol or Motrin she was taking. The patient denies having any headache or URI symptoms. No chest pain. No shortness of breath or cough. No abdominal pain or any diarrhea. Rather the patient was constipated. The patient on presentation to the hospital was noticed to have a fever of 103.1 degrees Fahrenheit. The patient's influenza serology was negative. Urine toxicology was negative. The patient did have a positive UA with moderate leukocyte esterase with 49 WBC. Liver enzymes are normal. White count was elevated at 17.2. The patient was started on Zosyn. The patient's culture finalized with ESBL pathogen yesterday that prompted this Infectious Disease consultation. Blood culture has been negative. I was able to start the patient on yesterday which the patient has tolerated and is feeling slightly better compared to since the patient has been in the hospital. REVIEW OF SYSTEMS: Constitutional: Positive for weakness along with fever. Eyes: No complaint. ENT no complaint. Respiratory no complaint. Cardiovascular no complaint. Genitourinary as per HPI. Gastrointestinal: As per HPI. Musculoskeletal: No complaint. Integumentary: No complaint. Psychological no complaint. Endocrine no complaint. Neurologic no complaint. PAST MEDICAL HISTORY: Depression. PAST SURGICAL HISTORY: Cholecystectomy. SOCIAL HISTORY: Denies smoking, drinking, or drug use. FAMILY HISTORY: Mother with history of depression. ALLERGIES: PENICILLIN with a rash. . MEDICATION: Currently patient is on Tylenol No. 3, Ertapenem 1 g daily, iron sulfate, Motrin, morphine sulfate and Narcan, Nicotine patch, Zyprexa, Zofran and Zoloft. PHYSICAL EXAMINATION: Her blood pressure is 104/56 with a pulse of 96, temperature 98. She is 96% on room air. General description is a middle aged female lying in bed in no distress. No tachypnea or accessory muscles of respiration use. HEENT: Shows slight pallor. No scleral icterus. Oral mucous membranes dry. No pharyngeal erythema or thrush. Neck trachea central. No thyromegaly. Lungs unlabored breathing, decreased breath sounds in the bases. No wheeze or crackles. Heart S1, S2. Regular rate and rhythm. Abdomen is soft. Mild right CVA tenderness. No guarding or rigidity. No organomegaly. EXTREMITIES: No edema of the feet. Skin examination: No rash or mass palpable. NEUROLOGICAL: Patient is awake, alert, and oriented x3. Mood and affect normal. LABS: Hemoglobin 9.7, white count 7.7 today that was elevated 13.8 yesterday and 17.2 on presentation. Urine was positive. Urine culture with ESBL pathogen. Blood culture has been negative. KUB was negative. DIAGNOSTIC IMPRESSION AND PLAN: Patient admitted to the hospital with sepsis in this patient who did have a fever of 103 degrees Fahrenheit. Did have tachycardia, elevated white count for SIRS. Source is likely right-sided pyelonephritis in this patient urine now showing multi- drug resistant ESBL E coli in this patient who recently did have a normal vaginal delivery and exposure to the healthcare system. PLAN: 1. We will obtain ultrasound of the kidney and bladder to make sure no evidence of any structural abnormality or abscess. 2. Invanz 1 g daily. 3. We will get a mid line on Saturday with continuation of Invanz for another 10 days on discharge. 4. We will follow up on clinical condition and culture to further adjust medication if needed. Thank you for this consultation. Will follow this patient along with you. MMODL / IJN: [id number] /
[2018-12-06] MEDS: ERTAPENEM 1 GM in SODIUM CHLORIDE 0.9% 50 ML IVPB SCH (21:25)
[2018-12-06] MEDS: OLANZapine 5 MG TAB PO SCH (21:49)
[2018-12-07] MEDS: Acetaminophen-Codeine 300-30mg TAB PO PRN ×4 (00:03→19:34)
[2018-12-07] MEDS: SODIUM CHLORIDE 0.9% 1,000 ML IV SCH ×3 (01:53→20:25)
[2018-12-07] MEDS: MORPHINE SULFATE 4 MG/ML SYRINGE IV PRN ×4 (02:30→23:05)
[2018-12-07] MEDS: NICOTINE 21MG/24HR PATCH TRANSDERM SCH (07:25)
[2018-12-07] MEDS: SERTRALINE 100 MG TAB PO SCH (07:26)
[2018-12-07] MEDS: FERROUS SULFATE 325 MG TAB PO SCH ×2 (07:26→17:01)
--- NOTE | 2018-12-07 12:13 | P.PN ---
Subjective Progress Note Date: 12/07/1812/07 - patient has been up and ambulatory so complain of right CVA tenderness but the pain is improved, denies fevers or chills. No complaints no acute events overnight Patient eating okay didn't denies any nausea or vomiting, does complain of right CVA tenderness, apparently the patient has a history of drug abuse and has here in the NICU has been having withdrawals from opiates and benzodia zepines, patient denies any recent drug abuse and recent UDS confirms that, patient afebrile for greater than 24 hours. Positive ESBL patient and contact precautions. Denies history of repeated antibiotic use, or recurrent UTIs. Objective - Vital Signs Vital signs: Vital Signs Temp 97.9 F 12/07/18 08:15 Pulse 63 12/07/18 08:15 Resp 16 12/07/18 08:15 BP 128/74 12/07/18 08:15 Pulse Ox 96 12/07/18 08:15 Intake & Output 12/06/18 12/07/18 12/07/18 18:59 06:59 18:59 Intake Total 360 Balance 360 Intake: Oral 360 Other: Voiding Method Toilet # Voids 2 1 - Exam Constitutional: No acute distress, conversant, pleasant Eyes: Anicteric sclerae, moist conjunctiva, no lid-lag, PERRLA ENMT: NC/AT,Oropharynx clear, no erythema, exudates Neck:Supple, FROM, no masses, or JVD, No carotid bruits; No thyromegaly Lungs: Clear to auscultation, Clear to percussion, Normal respiratory effort, no accessory muscle use Cardiovascular: Heart regular in rate and rhythm, No murmurs, gallops, or rubs no peripheral edema Abdominal: Soft Nontender, nom distended, no guarding, no rebound or rigidity, Normoactive bowel sounds No hepatomegaly, No splenomegaly, R CVAtenderness Skin: Normal temperature, tone, texture, turgor, No induration No subcutaneous nodules, No rash, lesions, No ulcers Extremities:No digital cyanosis No clubbing, Pedal pulses intact and symmetrical Radial pulses intact and symmetrical Normal gait and station, No calf tenderness Psychiatric: Alert and oriented to person, place and time, Appropriate affect I ntact judgement Neuro: Muscles Strength 5/5 in all 4 extremities, Sensation to light touch gross ly present throughout, Cranial nerves II-XII grossly intact. No focal sensory deficits - Labs CBC & Chem 7: 12/06/18 08:53 12/06/18 08:53 Labs: Microbiology - Last 24 Hours (Table) 12/02/18 23:00 Blood Culture - Preliminary Blood No Growth after 96 hours 12/03/18 01:00 Gram Stain - Final Vaginal Genital Culture - Final Strep agalactiae - (group b) Assessment and Plan (1) Sepsis Narrative/Plan: * Secondary to ESBL UTI * Afebrile and leukocytosis improving * Continue treatment with Invanz * Plan for midline her PICC placement tomorrow will DC on Invanz to continue for another 10 days Current Visit: Yes Status: Acute Code(s): A41.9 - SEPSIS, UNSPECIFIED ORGANISM SNOMED Code(s): 88616298 (2) Infection due to ESBL-producing Escherichia coli Narrative/Plan: * Continue antibiotic regimen with Invanz will need 14 days total of IV antibiotics * We'll schedule PICC placement and set up outpatient antibiotics Current Visit: Yes Status: Acute Code(s): A49.8 - OTHER BACTERIAL INFECTIONS OF UNSPECIFIED SITE; Z16.12 - EXTENDED SPECTRUM BETA LACTAMASE (ESBL) RESISTANCE SNOMED Code(s): 127046230 (3) Pyelonephritis Narrative/Plan: * Antibiotic regimen as above * Patient afebrile, leukocytosis final resolving Current Visit: Yes Status: Acute Code(s): N12 - TUBULO-INTERSTITIAL NEPHRITIS, NOT SPCF ACUTE OR CHRONIC SNOMED Code(s): 22637559 (4) anemia Narrative/Plan: * We'll need iron replacement oral ferrous sulfate Current Visit: Yes Status: Acute Code(s): O90.81 - ANEMIA OF THE PUERPERIUM SNOMED Code(s): 354697392 Plan: Disposition * Anticipated discharge tomorrow
[2018-12-07] MEDS: ERTAPENEM 1 GM in SODIUM CHLORIDE 0.9% 50 ML IVPB SCH (20:22)
[2018-12-07] MEDS: OLANZapine 5 MG TAB PO SCH (20:25)
--- NOTE | 2018-12-07 23:27 | PN ---
PROGRESS NOTE DATE OF SERVICE: 12/07/2018. REASON FOR FOLLOWUP: ESBL E coli, pyelonephritis. INTERVAL HISTORY: The patient is afebrile. The patient is breathing comfortably. Denies having any chest pain or any cough. No abdominal pain. No diarrhea. PHYSICAL EXAMINATION: Blood pressure 152/88 with a pulse of 58, temperature 98.4, she is 95% on room air. GENERAL DESCRIPTION: A middle-aged female lying in bed in no distress. RESPIRATORY SYSTEM: Unlabored breathing. LUNGS: Clear to auscultation anteriorly. HEART: S1, S2. Regular rate and rhythm. ABDOMEN: Soft, no tenderness. LAB: No new labs have been obtained today. Ultrasound of the kidney did not show any evidence of obstructive uropathy. DIAGNOSTIC IMPRESSION AND PLAN: Patient with ESBL E coli pyelonephritis. The patient currently on Invanz. She will get a midline tomorrow. Continue with IV Invanz for another 10 days with close outpatient followup. Continue supportive care. MMODL / IJN: [id number] /
[2018-12-08] MEDS: Acetaminophen-Codeine 300-30mg TAB PO PRN ×2 (06:36→12:04)
[2018-12-08] MEDS: MORPHINE SULFATE 4 MG/ML SYRINGE IV PRN (07:56)
[2018-12-08] MEDS: FERROUS SULFATE 325 MG TAB PO SCH (07:57)
[2018-12-08] MEDS: NICOTINE 21MG/24HR PATCH TRANSDERM SCH (07:57)
[2018-12-08] MEDS: SERTRALINE 100 MG TAB PO SCH (07:57)
[2018-12-08 08:41] VITALS: BP 127/71; PULSE 57; RESP 16; TEMP 97.5
[2018-12-08] MEDS ORDERED: HYDROcodone/APAP 7.5-325MG 1 EACH TAB PO ONE (09:20)
--- NOTE | 2018-12-08 09:28 | P.DS ---
Providers Date of admission: 12/03/18 00:08 Expected date of discharge: 12/08/18 Attending physician: Aidee Metcalf MD Consults: 12/05/18 18:35 Consult Physician Stat Consulting Provider: Josep Perez Consult Reason/Comments: Pyelonephritis ESBL Do you want consulting provider notified?: Yes Primary care physician: Curry Crews - Discharge Diagnosis(es) (1) Sepsis Current Visit: Yes Status: Acute (2) Infection due to ESBL-producing Escherichia coli Current Visit: Yes Status: Acute (3) Pyelonephritis Current Visit: Yes Status: Acute (4) anemia Current Visit: Yes Status: Acute Hospital Course: The patient is a 28-year-old female that was admitted with sepsis due to acute pyelonephritis after presenting with abdominal pain and right CVA tenderness and elevated white count 17.2 and fever. She was started on empiric IV antibiotics Rocephin, and cultures were drawn, a urine culture grew ESBL and antibiotic regimen was switched under the guidance of ID Dr. Perez to Invanz 1 g IV daily. The patient was treated supportively with IV morphine for pain, IV Zofran for nausea and was continued on IV fluids. With treatment the patient's leukocytosis and fever gradually resolved. Renal and bladder ultrasound showed no evidence of renal mass or obstruction, was negative for hydronephrosis. The patient had a PICC line placed and she is going to need ongoing IV antibiotics for 10 more days. She was discharged home in stable condition and told to follo w up with her PCP and Dr. Benz. This discharge process took approximately 35 minutes Focused exam * GI: Soft nontender nondistended normal bowel sounds all 4 quadrants, improving right CVA tenderness Patient Condition at Discharge: Stable Plan - Discharge Summary Discharge Rx Participant: Yes New Discharge Prescriptions: New Ertapenem [INVanz] 1 gm IVPB Q24H #10 bag No Action Sertraline [Zoloft] 150 mg PO DAILY OLANZapine [ZyPREXA] 5 mg PO HS OLANZapine [ZyPREXA] 5 mg PO DAILY PRN PRN Reason: Anxiety Discharge Medication List Sertraline [Zoloft] 150 mg PO DAILY 11/06/18 [History] OLANZapine [ZyPREXA] 5 mg PO DAILY PRN 12/02/18 [History] OLANZapine [ZyPREXA] 5 mg PO HS 12/02/18 [History] Ertapenem [INVanz] 1 gm IVPB Q24H #10 bag 12/07/18 [Rx] Follow up Appointment(s)/Referral(s): Curry Crews MD [Primary Care Provider] - 1-2 days Josep Perez MD [STAFF PHYSICIAN] - 1 Week Activity/Diet/Wound Care/Special Instructions: Wants D/C Rx
[2018-12-08] MEDS: ERTAPENEM 1 GM in SODIUM CHLORIDE 0.9% 50 ML IVPB SCH (11:59)
[2018-12-08] MEDS: SODIUM CHLORIDE 0.9% 1,000 ML IV SCH (11:59)
--- NOTE | 2018-12-08 16:46 | PN ---
PROGRESS NOTE DATE OF SERVICE: 12/08/2018 REASON FOR FOLLOWUP: ESBL E coli right-sided pyelonephritis. INTERVAL HISTORY: The patient is currently afebrile. The patient has been breathing comfortably. She was seen around early noon. No nausea, no vomiting. Pain to the right leg is currently controlled and no diarrhea. PHYSICAL EXAMINATION: Blood pressure 127/71 with a pulse of 57, temperature ( ), satting 93% on room air. General description is a middle aged female, lying in bed in no distress. Respiratory system: Unlabored breathing, clear to auscultation anteriorly. Heart S1, S2. Regular rate and rhythm. LABS: No new labs have been obtained today. DIAGNOSTIC IMPRESSION AND PLAN: Patient with ESBL E coli right-sided pyelonephritis. Patient responding to the Invanz. Will continue outpatient for another 10 days to finish a course of therapy and close outpatient followup. Continue supportive care. MMODL / IJN: [id number] /
== END 2018-12-08 14:53 | disposition home or self-care (01) | DRG 776 ==
LOC: EC 22:06 → 6PED 12-03 00:08
PROVIDERS: ADMIT Internal Medicine; ATTEND Internal Medicine
PROC: 05HF33Z Insertion of Infusion Device into Left Cephalic Vein, Percutaneous Approach (ICD-10-PCS; principal; 2018-12-08 08:20)
DX: O85 Puerperal sepsis (principal); N10 Acute pyelonephritis; B96.20 Unspecified Escherichia coli [E. coli] as the cause of diseases classified elsewhere; Z16.12 Extended spectrum beta lactamase (ESBL) resistance; O90.81 Anemia of the puerperium; O99.335 Smoking (tobacco) complicating the puerperium; F17.210 Nicotine dependence, cigarettes, uncomplicated; F32.9 Major depressive disorder, single episode, unspecified; K59.00 Constipation, unspecified; Z81.8 Family history of other mental and behavioral disorders; Z88.0 Allergy status to penicillin; Z90.49 Acquired absence of other specified parts of digestive tract; Z79.899 Other long term (current) drug therapy
CPT/HCPCS: 36410; 36415; 74018; 76770; 76937; 80048; 80053; 80306; 81001; 81025; 83605; 85025; 85027; 87040; 87070; 87077; 87086; 87186; 87205; 87491; 87502; 87591; 96361; 96374; 96375; 99284

== ENCOUNTER 2019-11-19 12:32 | Emergency (ER) | payer OTHER ==
[2019-11-19 12:44] VITALS: TEMP 98
[2019-11-19 13:42] LABS: Appearance,Urine Clear (Clear); Bilirubin,Urine Negative (Negative); Blood,Urine Negative (Negative); Color,Urine Yellow; Glucose,Urine (UA) Negative (Negative); Hyaline Casts,Urine 1 /lpf (0-2); Ketones,Urine Negative (Negative); Leukocyte Esterase,Urine Moderate (Negative); Mucus,Urine Rare /hpf; Nitrite,Urine Negative (Negative); Protein,Urine Negative (Negative); RBC,Urine 6 /hpf (0-5); Specific Gravity,Urine 1.022 (1.001-1.035); Squamous Epithelial Cell,Urine 2 /hpf (0-4); Urobilinogen,Urine <2.0 mg/dL (<2.0); WBC,Urine 3 /hpf (0-5)
--- NOTE | 2019-11-19 13:44 | ED ---
Female Urogenital HPI - General Chief complaint: Urogenital Stated complaint: vaginal pain/swelling Time Seen by Provider: 11/19/19 12:52 Source: patient Mode of arrival: ambulatory Limitations: no limitations - History of Present Illness Initial comments: Patient is a 29-year-old female presenting to the emergency Department with complaints of vaginal irritation for 4 days. Patient states she noticed a mild vaginal odor this started approximately 3-4 days ago followed by vaginal itching as well as mild pain and swelling. Patient admits to mild dysuria. She denies fever, chills, abdominal pain, flank pain. She denies nausea or vomiting. She admits to being sexually active with only her . She denies chance for secondary to being on the depo shot. She has no other complaints at this time. Upon arrival to the ER her vital signs are stable. - Related Data Home Medications Medication Instructions Recorded Confirmed Sertraline [Zoloft] 150 mg PO DAILY 11/06/18 12/03/18 OLANZapine [ZyPREXA] 5 mg PO DAILY PRN 12/02/18 12/02/18 OLANZapine [ZyPREXA] 5 mg PO HS 12/02/18 12/02/18 Previous Rx's Medication Instructions Recorded Ertapenem [INVanz] 1 gm IVPB Q24H #10 bag 12/07/18 Ferrous Sulfate [Iron (65 MG 325 mg PO BID-W/MEALS #60 tab 12/08/18 Elemental)] Allergies Allergy/AdvReac Type Severity Reaction Status Date / Time Penicillins Allergy Rash/Hives Verified 11/19/19 12:43 Review of Systems ROS Statement: Those systems with pertinent positive or pertinent negative responses have been documented in the HPI. ROS Other: All systems not noted in ROS Statement are negative. Past Medical History Past Medical History: No Reported History History of Any Multi-Drug Resistant Organisms: ESBL Date of last positivie culture/infection: 12/02/18 MDRO Source:: ESBL URINE Past Surgical History: Cholecystectomy Past Anesthesia/Blood Transfusion Reactions: No Reported Reaction Past Psychological History: Depression Smoking Status: Current every day smoker Past Alcohol Use History: Occasional, Rare Past Drug Use History: Cocaine, Marijuana, Opiates - Past Family History Mother Family Medical History: No Reported History Additional Family Medical History / Comment(s): Mother with depression. General Exam - General Exam Comments Initial Comments: GENERAL: Well-appearing, well-nourished and in no acute distress. HEAD: Atraumatic, normocephalic. EYES: Pupils equal round and reactive to light, extraocular movements intact, sclera anicteric, conjunctiva are normal. ENT: TMs normal, nares patent, oropharynx clear without exudates. Moist mucous membranes. NECK: Normal range of motion, supple without lymphadenopathy or JVD. LUNGS: Breath sounds clear to auscultation bilaterally and equal. No wheezes rales or rhonchi. HEART: Regular rate and rhythm without murmurs, rubs or gallops. ABDOMEN: Soft, nontender, normoactive bowel sounds. No guarding, no rebound. No masses appreciated. EXTREMITIES: Normal range of motion, no pitting or edema. No clubbing or cyanosis. NEUROLOGICAL: Normal speech, normal gait. PSYCH: Normal mood, normal affect. SKIN: Warm, Dry, normal turgor, no rashes or lesions noted. Limitations: no limitations External exam: Present: swelling (Mild swelling noted on the right labia). Absent: lesions, lacerations Speculum exam: Present: erythema, cervical discharge. Absent: foreign body By manual exam: Present: normal by manual exam Course Vital Signs 11/19/19 12:39 Temperature 98 F Pulse Rate 94 Respiratory 16 Rate Blood Pressure 122/68 O2 Sat by Pulse 97 Oximetry Medical Decision Making - Medical Decision Making Patient is a 29-year-old female presenting with vaginal complaints for the past 3-4 days. Vital signs are stable. Urine shows no signs of UTI. Trichomonas is positive. Patient will be treated with Flagyl as well as Rocephin and azithromycin. Gonorrhea, chlamydia, genital culture are pending at this time. I discussed with patient to have her partner tested and treated as well. She needs to refrain from intercourse for one week as well as one week after partner is treated. She is in agreement with this plan of care. Return parameters were discussed with the patient she verbalized understanding. - Lab Data Lab Results 11/19/19 11/19/19 11/19/19 Range/Units 13:15 13:15 13:15 Urine Color Yellow Urine Appearance Clear (Clear) Urine pH 6.0 (5.0-8.0) Ur Specific Douglass 1.022 (1.001-1.035) Urine Protein Negative (Negative) Urine Glucose (UA) Negative (Negative) Urine Ketones Negative (Negative) Urine Blood Negative (Negative) Urine Nitrite Negative (Negative) Urine Bilirubin Negative (Negative) Urine Urobilinogen <2.0 (<2.0) mg/dL Ur Leukocyte Esterase Moderate H (Negative) Urine RBC 6 H (0-5) /hpf Urine WBC 3 (0-5) /hpf Ur Squamous Epith Cells 2 (0-4) /hpf Hyaline Casts 1 (0-2) /lpf Urine Mucus Rare H (None) /hpf Urine HCG, Qual Not Detected (Not Detectd) Trichomonas Ag (Rapid) Positive H (Negative) Disposition Clinical Impression: Trichomonas vaginalis infection Disposition: HOME SELF-CARE Condition: Stable Instructions (If sedation given, give patient instructions): Trichomoniasis (ED) Additional Instructions: Please return to the Emergency Department if symptoms worsen or any other concerns. Refrain from sexual intercourse for one week as well as one week after partner is treated. Do not drink alcohol for 48 hours. Follow-up with PCP. Is patient prescribed a controlled substance at d/c from ED?: No Referrals: Curry Crews MD [Primary Care Provider] - 1-2 days
[2019-11-19] MEDS ORDERED: metroNIDAZOLE 500 MG TAB PO STA (13:53)
[2019-11-19] MEDS ORDERED: AZITHROMYCIN 250 MG TAB PO STA (13:53)
[2019-11-19] MEDS ORDERED: cefTRIAXone 250 MG VIAL IM STA (13:53)
[2019-11-19 14:09] VITALS: BP 122/73; PULSE 77; RESP 18
[2019-11-20 14:31] LABS: C. trachomatis,PCR Negative (Neg,Equiv); Chlamydia trachomatis Source Cervix; N. gonorrhoeae,PCR Negative (Neg,Equiv); Neisseria Source Cervix
== END 2019-11-19 14:07 | disposition home or self-care (01) ==
LOC: EC 12:32
DX: A59.01 Trichomonal vulvovaginitis (principal); F32.9 Major depressive disorder, single episode, unspecified; F17.200 Nicotine dependence, unspecified, uncomplicated; Z79.899 Other long term (current) drug therapy; Z90.49 Acquired absence of other specified parts of digestive tract; Z88.0 Allergy status to penicillin; Z86.19 Personal history of other infectious and parasitic diseases
CPT/HCPCS: 81001; 81025; 87808; 87491; 87591; 87070; 96372; 99283; J0696

== ENCOUNTER 2019-12-01 12:36 | Emergency (ER) | payer OTHER ==
[2019-12-01 12:45] VITALS: BP 107/69; PULSE 94; RESP 20; TEMP 98.2
[2019-12-01] MEDS ORDERED: CEPHALEXIN 500MG STARTER PACK 4 CAP BTL PO STA (13:14)
[2019-12-01] MEDS ORDERED: ACET/COD 300 MG/30 MG STARTER PACK 6 TAB BTL PO STA (13:15)
[2019-12-01] MEDS ORDERED: SULFAMETH-TMP DS STARTER PACK 2 TAB BTL PO STA (13:15)
--- NOTE | 2019-12-01 13:16 | ED ---
Skin/Abscess/FB HPI - General Chief complaint: Burn/Smoke Inhalation Stated complaint: rt hand burn, swelling Source: patient Mode of arrival: ambulatory Limitations: no limitations - History of Present Illness Initial comments: 29-year-old female presenting today for chief complaint of right hand burn patient states 2-3 days ago she burned the back of her hand when reaching into the upper and she states she sustained a linear burn to the back of the hand just proximal to the fifth knuckle. Patient states there is some slight redness and pain in the area now. She states that the burn is always been painful and blistered. Patient denies any areas of the burn that is not painful. Patient denies any limitations in range of motion at the digits of the hand denies any fusiform swelling of the digits patient denies a force flexed positioning. Patient has a fevers Gen. malaise patient doesn't appear proportion remaining abuse is negative upon arrival patient appears well no signs acute distress patient states her tetanus is up-to-date. - Related Data Home Medications Medication Instructions Recorded Confirmed Sertraline [Zoloft] 150 mg PO DAILY 11/06/18 12/03/18 Previous Rx's Medication Instructions Recorded Cephalexin [Keflex] 500 mg PO Q6HR 7 Days #28 cap 12/01/19 Sulfamethox-Tmp 800-160Mg [Bactrim 1 tab PO Q12HR 7 Days #14 tab 12/01/19 DS 800-160 mg] Allergies Allergy/AdvReac Type Severity Reaction Status Date / Time Penicillins Allergy Rash/Hives Verified 12/01/19 12:45 Review of Systems ROS Statement: Those systems with pertinent positive or pertinent negative responses have been documented in the HPI. ROS Other: All systems not noted in ROS Statement are negative. Past Medical History Past Medical History: No Reported History History of Any Multi-Drug Resistant Organisms: ESBL Date of last positivie culture/infection: 12/02/18 MDRO Source:: ESBL URINE Past Surgical History: Cholecystectomy Past Anesthesia/Blood Transfusion Reactions: No Reported Reaction Past Psychological History: Depression Smoking Status: Current every day smoker Past Alcohol Use History: Occasional, Rare Past Drug Use History: Cocaine, Marijuana, Opiates - Past Family History Mother Family Medical History: No Reported History Additional Family Medical History / Comment(s): Mother with depression. General Exam - General Exam Comments Initial Comments: General: The patient is awake and alert, in no distress, and does not appear acutely ill. Eye: Pupils are equal, round and reactive to light, extra-ocular movements are intact. No nystagmus. There is normal conjunctiva bilaterally. No signs of icterus. Cardiovascular: There is a regular rate and rhythm. No murmur, rub or gallop is appreciated. Respiratory: Lungs are clear to auscultation, respirations are non-labored, breath sounds are equal. No wheezes, stridor, rales, or rhonchi. Musculoskeletal: Normal ROM MCP DIP and PIP joints of all 5 digits of the right hand. There is some mild tenderness to range of motion at the fifth digit. There is no fusiform swelling. No forced flexed positioning. Strength 5/5. Sensation intact. Radial pulses equal bilaterally 2+. Neurological: A&O x 3. CN II-XII intact grossly, There are no obvious motor or sensory deficits. Coordination appears grossly intact. Speech is normal. Skin: Skin is warm and dry and no rashes. 3x1/4xcm linear burn, that is blanchable with scab in center, blister no longer present, no charring, painful touch. Psychiatric: Cooperative, appropriate mood & affect, normal judgment. Limitations: no limitations Course Vital Signs 12/01/19 12:41 Temperature 98.2 F Pulse Rate 94 Respiratory 20 Rate Blood Pressure 107/69 O2 Sat by Pulse 98 Oximetry Medical Decision Making - Medical Decision Making 29-year-old female presented for burn there is no evidence of flexor tenosynovitis however there does appear to be some mild redness surrounding the burn concerning for developing cellulitis. I discussed the risk involved with hand infections in the importance of adhering to the antibiotic regimen and s trict return parameters. Otherwise at this time patient's tetanus is up-to-date. There is no significant involvement of joints this appears to be a second-degree burn. Patient was prescribed Keflex and Bactrim. And was discharged appear well to discussed the case with attending provider Dr. Nair Disposition Clinical Impression: Burn of right hand, Cellulitis Disposition: HOME SELF-CARE Condition: Good Instructions (If sedation given, give patient instructions): Cellulitis (ED), Superficial Burn (DC) Additional Instructions: Please use medication as discussed. Please follow-up with family doctor in the next 2 days. WATCH FOR SPREAD OF REDNESS< FINGER SWELLING OR ANY INCREASING PAIN WITH RANGE OF MOTION OF FINGERS--IMMEDIATE RETURN Please return to emergency room if the symptoms increase or worsen or for any other concerns. Prescriptions: Sulfamethox-Tmp 800-160Mg [Bactrim DS 800-160 mg] 1 tab PO Q12HR 7 Days #14 tab Cephalexin [Keflex] 500 mg PO Q6HR 7 Days #28 cap Is patient prescribed a controlled substance at d/c from ED?: No Referrals: Curry Crews MD [Primary Care Provider] - 1-2 days Time of Disposition: 13:15
== END 2019-12-01 13:32 | disposition home or self-care (01) ==
LOC: EC 12:36
DX: T23.061A Burn of unspecified degree of back of right hand, initial encounter (principal); L03.113 Cellulitis of right upper limb; T31.0 Burns involving less than 10% of body surface; F32.9 Major depressive disorder, single episode, unspecified; F17.200 Nicotine dependence, unspecified, uncomplicated; Z88.0 Allergy status to penicillin; Z79.899 Other long term (current) drug therapy; X15.0XXA Contact with hot stove (kitchen), initial encounter; Y92.009 Unspecified place in unspecified non-institutional (private) residence as the place of occurrence of the external cause
CPT/HCPCS: 99283

== ENCOUNTER 2020-03-05 08:04 | Emergency (ER) | payer OTHER ==
[2020-03-05 08:09] VITALS: TEMP 97.9
[2020-03-05] MEDS ORDERED: METHADONE 10 MG TAB PO STA (08:23)
[2020-03-05] MEDS ORDERED: ONDANSETRON ODT 4 MG TAB PO STA (08:24)
--- NOTE | 2020-03-05 08:28 | ED ---
Recheck HPI - General Chief Complaint: Recheck/Abnormal Lab/Rx Stated Complaint: Withdrawl Time Seen by Provider: 03/05/20 08:09 Source: patient, RN notes reviewed Mode of arrival: ambulatory Limitations: no limitations - History of Present Illness Initial Comments: This a 29-year-old female presents emergency Department chief complaint of opiate withdrawal. Patient states that she's had to stop use of heroin. She is scheduled to start methadone on Saturday. She states she cannot tolerate the withdrawal symptoms. She states that she's had extreme diarrhea vomiting, very fidgety, agitation. Patient has been suicidal homicidal. Patient states that she uses approximately 1 g daily. Patient denies any chest pain or shortness breath. Patient denies any headache or dizziness. - Related Data Home Medications Medication Instructions Recorded Confirmed Sertraline [Zoloft] 150 mg PO DAILY 11/06/18 12/03/18 Previous Rx's Medication Instructions Recorded Cephalexin [Keflex] 500 mg PO Q6HR 7 Days #28 cap 12/01/19 Sulfamethox-Tmp 800-160Mg [Bactrim 1 tab PO Q12HR 7 Days #14 tab 12/01/19 DS 800-160 mg] LORazepam [Ativan] 1 mg PO TID 3 Days #9 tab 03/05/20 Ondansetron Odt [Zofran Odt] 4 mg PO Q8HR PRN #14 tab 03/05/20 Allergies Allergy/AdvReac Type Severity Reaction Status Date / Time Penicillins Allergy Rash/Hives Verified 03/05/20 08:09 Review of Systems ROS Statement: Those systems with pertinent positive or pertinent negative responses have been documented in the HPI. ROS Other: All systems not noted in ROS Statement are negative. Past Medical History Past Medical History: No Reported History History of Any Multi-Drug Resistant Organisms: ESBL Date of last positivie culture/infection: 12/02/18 MDRO Source:: ESBL URINE Past Surgical History: Cholecystectomy, Tonsillectomy Past Anesthesia/Blood Transfusion Reactions: No Reported Reaction Past Psychological History: Depression Smoking Status: Current every day smoker Past Alcohol Use History: Occasional, Rare Past Drug Use History: Cocaine, Heroin, Marijuana, Opiates - Past Family History Mother Family Medical History: No Reported History Additional Family Medical History / Comment(s): Mother with depression. General Exam Limitations: no limitations Course Vital Signs 03/05/20 08:05 Temperature 97.9 F Pulse Rate 109 H Respiratory 18 Rate Blood Pressure 115/71 O2 Sat by Pulse 100 Oximetry Medical Decision Making - Medical Decision Making Patient will be discharged with antiemetics and short course of benzodiazepines. Patient will be following up with [facility]. Return parameters were discussed. Disposition Clinical Impression: Opioid use disorder, Opiate withdrawal Disposition: HOME SELF-CARE Instructions (If sedation given, give patient instructions): Opioid Withdrawal (ED) Additional Instructions: Please return to the Emergency Department if symptoms worsen or any other concerns. Prescriptions: LORazepam [Ativan] 1 mg PO TID 3 Days #9 tab Ondansetron Odt [Zofran Odt] 4 mg PO Q8HR PRN #14 tab PRN Reason: Nausea Is patient prescribed a controlled substance at d/c from ED?: Yes When asked, does pt state using other controlled substances?: No If prescribed controlled substance>3 days was MAPS reviewed?: Prescribed <3 Days Referrals: Curry Crews MD [Primary Care Provider] - 1-2 days Time of Disposition: 08:26
[2020-03-05 08:52] VITALS: BP 132/86; PULSE 86; RESP 16
== END 2020-03-05 08:53 | disposition home or self-care (01) ==
LOC: EC 08:04
DX: F11.23 Opioid dependence with withdrawal (principal); F32.9 Major depressive disorder, single episode, unspecified; F17.200 Nicotine dependence, unspecified, uncomplicated; Z79.899 Other long term (current) drug therapy; Z88.0 Allergy status to penicillin
CPT/HCPCS: 99283; S0109

== ENCOUNTER 2020-03-07 19:04 | Emergency (ER) | payer OTHER ==
[2020-03-07 19:08] VITALS: TEMP 98.6
[2020-03-07] MEDS ORDERED: cloNIDine HCL 0.1 MG TAB PO STA (19:38)
[2020-03-07] MEDS ORDERED: diphenhydrAMINE 50 MG CAP PO STA (19:39)
--- NOTE | 2020-03-07 19:43 | ED ---
Recheck HPI - General Chief Complaint: Recheck/Abnormal Lab/Rx Stated Complaint: withdrawals Time Seen by Provider: 03/07/20 19:19 Source: patient Mode of arrival: ambulatory Limitations: no limitations - History of Present Illness Initial Comments: Patient is a 29-year-old female with history of heroin abuse presenting to the emergency department with a chief complaint of withdrawals. Patient states the last time she used heroin was about 4 days ago. Patient states she is 1 g and then "passed out". States her administered Narcan. Patient reports now she is looking to rehab. States she is set to go on Saturday. Patient reports she is feeling more agitated, diarrhea, anxiety, unable to eat or sleep. - Related Data Previous Rx's Medication Instructions Recorded Cephalexin [Keflex] 500 mg PO Q6HR 7 Days #28 cap 12/01/19 Sulfamethox-Tmp 800-160Mg [Bactrim 1 tab PO Q12HR 7 Days #14 tab 12/01/19 DS 800-160 mg] LORazepam [Ativan] 1 mg PO TID 3 Days #9 tab 03/05/20 Ondansetron Odt [Zofran Odt] 4 mg PO Q8HR PRN #14 tab 03/05/20 Propranolol [Inderal] 10 mg PO TID #30 tab 03/05/20 Sertraline [Zoloft] 150 mg PO DAILY #30 tab 03/05/20 Allergies Allergy/AdvReac Type Severity Reaction Status Date / Time Penicillins Allergy Rash/Hives Verified 03/05/20 08:09 Review of Systems ROS Statement: Those systems with pertinent positive or pertinent negative responses have been documented in the HPI. ROS Other: All systems not noted in ROS Statement are negative. Past Medical History Past Medical History: No Reported History History of Any Multi-Drug Resistant Organisms: ESBL Date of last positivie culture/infection: 12/02/18 MDRO Source:: ESBL URINE Past Surgical History: Cholecystectomy, Tonsillectomy Past Anesthesia/Blood Transfusion Reactions: No Reported Reaction Past Psychological History: Depression Smoking Status: Current every day smoker Past Alcohol Use History: Occasional, Rare Past Drug Use History: Cocaine, Heroin, Marijuana, Opiates - Past Family History Mother Family Medical History: No Reported History Additional Family Medical History / Comment(s): Mother with depression. General Exam Limitations: no limitations General appearance: alert, anxious Head exam: Present: atraumatic, normocephalic, normal inspection Eye exam: Present: normal appearance, PERRL, EOMI Pupils: Present: normal accommodation ENT exam: Present: normal exam, normal oropharynx, mucous membranes moist Neck exam: Present: normal inspection, full ROM. Absent: tenderness Respiratory exam: Present: normal lung sounds bilaterally. Absent: respiratory distress, wheezes, rales Cardiovascular Exam: Present: regular rate, normal rhythm, normal heart sounds. Absent: systolic murmur, diastolic murmur Extremities exam: Present: normal inspection, full ROM, normal capillary refill Back exam: Present: normal inspection, full ROM. Absent: tenderness, CVA tenderness (R), CVA tenderness (L) Neurological exam: Present: alert, oriented X3, CN II-XII intact, normal gait Psychiatric exam: Present: normal affect, anxious Skin exam: Present: warm, dry, intact, normal color Course Vital Signs 03/07/20 19:06 Temperature 98.6 F Pulse Rate 106 H Respiratory 18 Rate Blood Pressure 142/85 O2 Sat by Pulse 100 Oximetry Medical Decision Making - Medical Decision Making Patient is a 29-year-old female presenting to emergency Department with chief complaint of heroin withdrawal. Patient has sinus symptoms associated with heroin withdrawal. Patient appears to be anxious. Patient Benadryl and clonidine. Patient advised to follow-up with primary care. Patient also given 1 mg of Ativan. She was advised to continue her path recovery in rehab. Return parameters thoroughly discussed the patient was understanding and agreeable. Case discussed with physician. Disposition Clinical Impression: Heroin withdrawal Disposition: HOME SELF-CARE Condition: Stable Instructions (If sedation given, give patient instructions): Narcotic Withdrawal (ED) Additional Instructions: Continue to outpatient rehab treatment. Return to emergency department if symptoms worsen. Is patient prescribed a controlled substance at d/c from ED?: No Referrals: Curry Crews MD [Primary Care Provider] - 1-2 days Time of Disposition: 19:43
[2020-03-07] MEDS ORDERED: LORazepam 1 MG TAB PO STA (20:01)
[2020-03-07 20:09] VITALS: BP 126/78; PULSE 83; RESP 16
== END 2020-03-07 20:09 | disposition home or self-care (01) ==
LOC: EC 19:04
DX: F11.23 Opioid dependence with withdrawal (principal); F17.200 Nicotine dependence, unspecified, uncomplicated; Z88.0 Allergy status to penicillin
CPT/HCPCS: 99283

== ENCOUNTER 2020-06-06 11:30 | Emergency (ER) | payer OTHER ==
--- NOTE | 2020-06-06 12:20 | ED ---
Lower Extremity Injury HPI - General Chief Complaint: Extremity Injury, Lower Stated Complaint: foot injury Time Seen by Provider: 06/06/20 12:07 Source: patient, RN notes reviewed, old records reviewed Mode of arrival: ambulatory Limitations: no limitations - History of Present Illness Initial Comments: There is a 29-year-old female presents emergency department today with left foot injury. Patient reports that she was hiking over the weekend tripped and had a pulling and twisting of her left foot. She complains of pain and unable to bear weight over the lateral aspect of the foot. Patient states that she has had previous fracture in this foot when she was young at age 3. She denies any other injury or ankle pain. - Related Data Home Medications Medication Instructions Recorded Confirmed Sertraline [Zoloft] 100 mg PO DAILY 03/07/20 03/07/20 medroxyPROGESTERone [Depo-Provera] 150 mg IM Q90D 03/07/20 03/07/20 Previous Rx's Medication Instructions Recorded Propranolol [Inderal] 10 mg PO TID #30 tab 03/05/20 Ibuprofen [Motrin] 600 mg PO Q8HR PRN #30 tab 06/06/20 Allergies Allergy/AdvReac Type Severity Reaction Status Date / Time Penicillins Allergy Rash/Hives Verified 06/06/20 12:06 Review of Systems ROS Statement: Those systems with pertinent positive or pertinent negative responses have been documented in the HPI. ROS Other: All systems not noted in ROS Statement are negative. Past Medical History Past Medical History: No Reported History History of Any Multi-Drug Resistant Organisms: ESBL Date of last positivie culture/infection: 12/02/18 MDRO Source:: ESBL URINE Past Surgical History: Cholecystectomy, Tonsillectomy Past Anesthesia/Blood Transfusion Reactions: No Reported Reaction Past Psychological History: Depression Smoking Status: Current some day smoker Past Alcohol Use History: Occasional, Rare Past Drug Use History: Cocaine, Heroin, Marijuana, Opiates - Past Family History Mother Family Medical History: No Reported History Additional Family Medical History / Comment(s): Mother with depression. General Exam - General Exam Comments Initial Comments: Alert and oriented 29-year-old female. No significant distress. Limitations: no limitations Head exam: Present: atraumatic, normocephalic, normal inspection Eye exam: Present: normal appearance, PERRL, EOMI. Absent: scleral icterus, conjunctival injection, periorbital swelling ENT exam: Present: normal exam, mucous membranes moist Neck exam: Present: normal inspection. Absent: tenderness, meningismus, lymphadenopathy Respiratory exam: Present: normal lung sounds bilaterally. Absent: respiratory distress, wheezes, rales, rhonchi, stridor Cardiovascular Exam: Present: regular rate, normal rhythm, normal heart sounds. Absent: systolic murmur, diastolic murmur, rubs, gallop, clicks GI/Abdominal exam: Present: soft, normal bowel sounds. Absent: distended, tenderness, guarding, rebound, rigid Extremities exam: Present: normal inspection, full ROM, normal capillary refill. Absent: tenderness, pedal edema, joint swelling, calf tenderness Left Lower Leg exam: Present: normal inspection, full ROM Ankle exam: Present: normal inspection, full ROM Foot/Toe exam: Present: full ROM, swelling (Patient is some redness and swelling over the lateral aspect of the foot.). Absent: normal inspection Back exam: Present: normal inspection Neurological exam: Present: alert, oriented X3, CN II-XII intact Psychiatric exam: Present: normal affect, normal mood Skin exam: Present: warm, dry, intact, normal color. Absent: rash Course Vital Signs 06/06/20 12:03 Temperature 98.1 F Pulse Rate 96 Respiratory 18 Rate Blood Pressure 122/66 O2 Sat by Pulse 100 Oximetry Disposition Clinical Impression: Foot sprain Disposition: HOME SELF-CARE Condition: Good Instructions (If sedation given, give patient instructions): Foot Sprain (ED) Additional Instructions: Patient advised rest ice and elevate the foot. Ambulate with crutches and be nonweightbearing. He did take a temperature medication for pain. Follow-up with orthopedic. Prescriptions: Ibuprofen [Motrin] 600 mg PO Q8HR PRN #30 tab PRN Reason: Pain Is patient prescribed a controlled substance at d/c from ED?: No Referrals: Scott Swift [Primary Care Provider] - 1-2 days Time of Disposition: 13:24
--- NOTE | 2020-06-06 12:36 | XR ---
EXAMINATION TYPE: XR foot complete LT DATE OF EXAM: 06/06/2020 CLINICAL HISTORY: Foot pain and bruising worse over third toe. TECHNIQUE: Frontal, lateral, and oblique images of the left foot are obtained. COMPARISON: None FINDINGS: There is no acute fracture/dislocation evident in the left foot with particular attention to the third toe at area of clinical concern. The joint spaces in the left foot appear within normal limits. High arch is present. The overlying soft tissue appears unremarkable. IMPRESSION: There is no acute fracture or dislocation in the left foot.
[2020-06-06] MEDS ORDERED: IBUPROFEN 600 MG TAB PO STA (13:23)
[2020-06-06 13:41] VITALS: BP 112/74; PULSE 93; RESP 16; TEMP 98.2
== END 2020-06-06 13:40 | disposition home or self-care (01) ==
LOC: EC 11:30
DX: S93.602A Unspecified sprain of left foot, initial encounter (principal); F17.200 Nicotine dependence, unspecified, uncomplicated; Z88.0 Allergy status to penicillin; F32.9 Major depressive disorder, single episode, unspecified; Z79.899 Other long term (current) drug therapy; Z79.3 Long term (current) use of hormonal contraceptives; X50.0XXA Overexertion from strenuous movement or load, initial encounter; Y93.89 Activity, other specified
CPT/HCPCS: 99284

== ENCOUNTER 2020-10-05 11:34 | Emergency (ER) | payer OTHER ==
[2020-10-05 11:40] VITALS: BP 120/73; PULSE 102; RESP 18; TEMP 97.5
--- NOTE | 2020-10-05 12:35 | ED ---
Recheck HPI - General Chief Complaint: Recheck/Abnormal Lab/Rx Stated Complaint: wants preg test Time Seen by Provider: 10/05/20 11:41 Source: patient Mode of arrival: ambulatory Limitations: no limitations - History of Present Illness Initial Comments: 30-year-old female presenting for late. Concern for state she calf or proximal E test presented for test today. No additional complaints - Related Data Home Medications Medication Instructions Recorded Confirmed Sertraline [Zoloft] 100 mg PO DAILY 03/07/20 03/07/20 medroxyPROGESTERone [Depo-Provera] 150 mg IM Q90D 03/07/20 03/07/20 Previous Rx's Medication Instructions Recorded Propranolol [Inderal] 10 mg PO TID #30 tab 03/05/20 Ibuprofen [Motrin] 600 mg PO Q8HR PRN #30 tab 06/06/20 Allergies Allergy/AdvReac Type Severity Reaction Status Date / Time Penicillins Allergy Rash/Hives Verified 10/05/20 11:39 Review of Systems ROS Statement: Those systems with pertinent positive or pertinent negative responses have been documented in the HPI. ROS Other: All systems not noted in ROS Statement are negative. Past Medical History Past Medical History: No Reported History History of Any Multi-Drug Resistant Organisms: ESBL Date of last positivie culture/infection: 12/02/18 MDRO Source:: ESBL URINE Past Surgical History: Cholecystectomy, Tonsillectomy Past Anesthesia/Blood Transfusion Reactions: No Reported Reaction Past Psychological History: Depression Smoking Status: Current every day smoker Past Alcohol Use History: Occasional, Rare Past Drug Use History: Cocaine, Heroin, Marijuana, Opiates - Past Family History Mother Family Medical History: No Reported History Additional Family Medical History / Comment(s): Mother with depression. General Exam - General Exam Comments Initial Comments: General: The patient is awake and alert, in no distress, and does not appear acutely ill. Eye: Pupils are equal, extra-ocular movements are intact. No nystagmus. There is normal conjunctiva bilaterally. No signs of icterus. Neurological: A&O x 3. CN II-XII intact grossly, There are no obvious motor or sensory deficits. Coordination appears grossly intact. Speech is normal. Skin: Skin is warm and dry and no rashes or lesions are noted. Psychiatric: Cooperative, appropriate mood & affect, normal judgment. Limitations: no limitations Course Vital Signs 10/05/20 11:35 Temperature 97.5 F L Pulse Rate 102 H Respiratory 18 Rate Blood Pressure 120/73 O2 Sat by Pulse 100 Oximetry Medical Decision Making - Medical Decision Making HCG (-). asymptomatic. recommended repeat outpatient in 1 week - Lab Data Lab Results 10/05/20 Range/Units 11:45 Urine HCG, Qual Not Detected (Not Detectd) Disposition Clinical Impression: test negative Disposition: HOME SELF-CARE Condition: Good Additional Instructions: Please use medication as discussed. Please follow-up with family doctor in the next 2 days. Please return to emergency room if the symptoms increase or worsen or for any other concerns. Is patient prescribed a controlled substance at d/c from ED?: No Referrals: Lopez Marshall MD [Primary Care Provider] - 1-2 days Time of Disposition: 12:35
== END 2020-10-05 12:38 | disposition home or self-care (01) ==
LOC: EC 11:34
DX: Z32.02 Encounter for pregnancy test, result negative (principal); F32.9 Major depressive disorder, single episode, unspecified; F17.200 Nicotine dependence, unspecified, uncomplicated; Z79.899 Other long term (current) drug therapy; Z79.3 Long term (current) use of hormonal contraceptives; Z88.0 Allergy status to penicillin
CPT/HCPCS: 81025; 99282

== ENCOUNTER 2020-10-10 07:12 | Emergency (ER) | payer OTHER ==
[2020-10-10 07:19] VITALS: BP 123/76; PULSE 102; RESP 18; TEMP 98.3
[2020-10-10] MEDS ORDERED: TOPICAL SKIN ADHESIVE 1 EACH AMP TOPICAL ONE (07:22)
--- NOTE | 2020-10-10 07:26 | ED ---
General Adult HPI - General Chief complaint: Wound/Laceration Stated complaint: LT hand lac Time Seen by Provider: 10/10/20 07:20 Source: patient, RN notes reviewed Mode of arrival: ambulatory Limitations: no limitations - History of Present Illness Initial comments: Patient 30-year-old female presented to the emergency room today with chief complaint of a laceration to the left thumb. She doesn't that she was using a knife to cut some potatoes when the knife slipped causing laceration to the volar aspect. States that it occurred prior to arrival. She states her tetanus is up-to-date. She states she has full range of motion. She denies any other complaints or any other symptoms. - Related Data Home Medications Medication Instructions Recorded Confirmed Sertraline [Zoloft] 100 mg PO DAILY 03/07/20 03/07/20 medroxyPROGESTERone [Depo-Provera] 150 mg IM Q90D 03/07/20 03/07/20 Previous Rx's Medication Instructions Recorded Propranolol [Inderal] 10 mg PO TID #30 tab 03/05/20 Ibuprofen [Motrin] 600 mg PO Q8HR PRN #30 tab 06/06/20 Allergies Allergy/AdvReac Type Severity Reaction Status Date / Time Penicillins Allergy Rash/Hives Verified 10/10/20 07:19 Review of Systems ROS Statement: Those systems with pertinent positive or pertinent negative responses have been documented in the HPI. ROS Other: All systems not noted in ROS Statement are negative. Past Medical History Past Medical History: No Reported History History of Any Multi-Drug Resistant Organisms: ESBL Date of last positivie culture/infection: 12/02/18 MDRO Source:: ESBL URINE Past Surgical History: Cholecystectomy, Tonsillectomy Past Anesthesia/Blood Transfusion Reactions: No Reported Reaction Past Psychological History: Depression Smoking Status: Current every day smoker Past Alcohol Use History: Occasional, Rare Past Drug Use History: Cocaine, Heroin, Marijuana, Opiates - Past Family History Mother Family Medical History: No Reported History Additional Family Medical History / Comment(s): Mother with depression. General Exam - General Exam Comments Initial Comments: General: The patient is awake and alert, in no distress, and does not appear acutely ill. Eye: extra-ocular movements are intact. No nystagmus. There is normal conjunctiva bilaterally. No signs of icterus. Ears, nose, mouth and throat: There are moist mucous membranes and no oral lesions. Neck: The neck is supple, there is no tenderness or JVD. Respiratory: Lungs are clear to auscultation, respirations are non-labored, breath sounds are equal. No wheezes, stridor, rales, or rhonchi. Musculoskeletal: Normal ROM, no tenderness. Strength 5/5. Sensation intact. Pulses equal bilaterally 2+. Neurological: A&O x 3. CN II-XII intact, There are no obvious motor or sensory deficits. Coordination appears grossly intact. Speech is normal. Skin: Patient does have a 1 cm linear laceration to the volar aspect of the left thumb. No active bleeding. Psychiatric: Cooperative, appropriate mood & affect, normal judgment. Limitations: no limitations Course Vital Signs 10/10/20 07:17 Temperature 98.3 F Pulse Rate 102 H Respiratory 18 Rate Blood Pressure 123/76 O2 Sat by Pulse 100 Oximetry Procedures - Procedures Initial comment: Laceration measuring approximately 1 cm to the volar aspect of the left thumb. No active bleeding. Wound was cleaned and irrigated with saline here in emergency room. Wound edges were approximated and closed with Dermabond. Patient tolerated procedure well. Medical Decision Making - Medical Decision Making Patient tetanus is up-to-date. Patient laceration was clean closed here in the emergency room without any competitions. Patient will be discharged home advised return for any other concerns. Disposition Clinical Impression: Finger laceration Disposition: HOME SELF-CARE Condition: Good Instructions (If sedation given, give patient instructions): Finger Laceration (ED) Additional Instructions: Please allow the glue to fall off on its own over the next 2-5 days. Watch for any signs of infection return to emergency room for any other concerns. Is patient prescribed a controlled substance at d/c from ED?: No If prescribed controlled substance>3 days was MAPS reviewed?: Prescribed <3 Days Referrals: Lopez Marshall MD [Primary Care Provider] - 1-2 days Time of Disposition: 07:32
== END 2020-10-10 07:36 | disposition home or self-care (01) ==
LOC: EC 07:12
DX: S61.012A Laceration without foreign body of left thumb without damage to nail, initial encounter (principal); F17.200 Nicotine dependence, unspecified, uncomplicated; F32.9 Major depressive disorder, single episode, unspecified; Z79.899 Other long term (current) drug therapy; Z88.0 Allergy status to penicillin; Z79.3 Long term (current) use of hormonal contraceptives; W26.0XXA Contact with knife, initial encounter; Y93.89 Activity, other specified
CPT/HCPCS: 12001; 99282

== ENCOUNTER 2020-12-07 15:02 | Emergency (ER) | payer OTHER ==
[2020-12-07 15:19] VITALS: BP 128/81; PULSE 89; RESP 18; TEMP 98.2
[2020-12-07] MEDS ORDERED: LITHIUM CARBONATE 150 MG CAP PO STA (15:35)
[2020-12-07] MEDS ORDERED: GABAPENTIN 100 MG CAP PO STA (15:36)
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
[2020-12-07] MEDS ORDERED: LITHIUM CARBONATE 300 MG CAP PO STA (15:40)
== END 2020-12-07 16:27 | disposition home or self-care (01) ==
LOC: EC 15:02
DX: Z76.0 Encounter for issue of repeat prescription (principal); F32.9 Major depressive disorder, single episode, unspecified; F17.200 Nicotine dependence, unspecified, uncomplicated; F14.90 Cocaine use, unspecified, uncomplicated; F11.99 Opioid use, unspecified with unspecified opioid-induced disorder; Z88.0 Allergy status to penicillin
CPT/HCPCS: 99281

== ENCOUNTER 2020-12-21 11:50 | Emergency (ER) | payer OTHER ==
[2020-12-21] MEDS ORDERED: ACETAMINOPHEN TAB 500 MG TAB PO STA (12:58)
[2020-12-21 13:31] LABS: Basophils # (A) 0.1 k/uL (0-0.2); Basophils % (A) 1 %; Eosinophils # (A) 0.1 k/uL (0-0.7); Eosinophils % (A) 1 %; HCT 39.4 % (34.0-46.0); HGB 12.8 gm/dL (11.4-16.0); Lymphocytes # (A) 1.5 k/uL (1.0-4.8); Lymphocytes % (A) 14 %; MCH 29.6 pg (25.0-35.0); MCHC 32.4 g/dL (31.0-37.0); MCV 91.4 fL (80.0-100.0); Mean Platelet Volume 7.5; Monocytes # (A) 0.4 k/uL (0-1.0); Monocytes % (A) 4 %; Neutrophils # (A) 8.6 k/uL (1.3-7.7); Neutrophils % (A) 79 %; Platelet Count 293 k/uL (150-450); RBC 4.31 m/uL (3.80-5.40); RDW 13.3 % (11.5-15.5); WBC 10.8 k/uL (3.8-10.6)
[2020-12-21 13:38] LABS: RBC,Urine >182 /hpf (0-5); WBC,Urine >182 /hpf (0-5)
[2020-12-21 13:39] LABS: Appearance,Urine Bloody (Clear); Color,Urine Red
[2020-12-21 13:42] LABS: ALT 13 U/L (4-34); AST 24 U/L (14-36); African American GFR (CKD) >90 (>60 ml/min/1.73 sqM); Albumin 4.1 g/dL (3.5-5.0); Alkaline Phosphatase 69 U/L (38-126); Anion Gap 6 mmol/L; Blood Urea Nitrogen 8 mg/dL (7-17); Calcium 8.9 mg/dL (8.4-10.2); Carbon Dioxide 27 mmol/L (22-30); Chloride 104 mmol/L (98-107); Glucose 82 mg/dL (74-99); Non-African American GFR(CKD) >90 (>60 ml/min/1.73 sqM); Sodium 137 mmol/L (137-145); Total Bilirubin 0.5 mg/dL (0.2-1.3); Total Protein 6.6 g/dL (6.3-8.2)
--- NOTE | 2020-12-21 14:09 | US ---
EXAMINATION TYPE: Transabdominal DATE OF EXAM: 12/21/2020 1:51 PM COMPARISON: NONE CLINICAL HISTORY: heavy bleeding, cramping, +test today, unknown dates. EXAM PERFORMED: Transvaginal pelvic ultrasound EXAM MEASUREMENTS: GESTATIONAL AGE / DATING Physician Established: Not yet established Dates by LMP: LMP unknown Dates by First Scan: No previous this is first scan Dates by Current Scan for: Unable to date by today's study MATERNAL ANATOMY Uterus: 9.7 x 5.7 x 6.9cm Right Ovary: unable to visualize Left Ovary: 2.6 x 2.2 x 2.1cm Post CDS / Adnexa: wnl Thickened heterogeneous endometrium. GESTATION / SURVEY IUP: No IUP seen at this time Date of LMP: unknown Beta HcG (if available): IMPRESSION: 1. Somewhat thickened and heterogenous endometrium. A discrete gestational sac, crown-rump length, or yolk sac is not evident. 2. Correlation with beta-hCG and follow-up exams are recommended
[2020-12-21 14:32] LABS: HCG,Quantitative Serum 12361.9 mIU/mL
[2020-12-21] MEDS ORDERED: IBUPROFEN 600 MG TAB PO STA (14:48)
--- NOTE | 2020-12-21 14:48 | ED ---
Abdominal Pain HPI - General Chief Complaint: Abdominal Pain Stated Complaint: blood in urine, pelvic pain Time Seen by Provider: 12/21/20 12:30 Source: patient Mode of arrival: ambulatory Limitations: no limitations - History of Present Illness Initial Comments: Patient is a 30-year-old female presenting to the emergency department with complaint of vaginal bleeding since yesterday. Patient states she went to her PCPs office today and had a positive test, she was unaware of her . Her PCP then sent her to the ER for further evaluation. Patient states she thinks her last period was about 2-3 months ago. She started having some vaginal bleeding yesterday followed by some clots that were today and yesterday. She continues to have lower abdominal cramping. She denies any fevers or chills, no chest pain or shortness of breath. She states this would be her fifth , she has 4 children. 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 Alvarez. She denies any concerns for STDs. She has no further complaints. - Related Data Home Medications Medication Instructions Recorded Confirmed Sertraline [Zoloft] 100 mg PO DAILY 03/07/20 03/07/20 medroxyPROGESTERone [Depo-Provera] 150 mg IM Q90D 03/07/20 03/07/20 Previous Rx's Medication Instructions Recorded Propranolol [Inderal] 10 mg PO TID #30 tab 03/05/20 Ibuprofen [Motrin] 600 mg PO Q8HR PRN #30 tab 06/06/20 Gabapentin [Neurontin] 100 mg PO BID 3 Days #6 cap 12/07/20 Rupert Carbonate 300 mg PO BID 3 Days #6 capsule 12/07/20 Allergies Allergy/AdvReac Type Severity Reaction Status Date / Time Penicillins Allergy Rash/Hives Verified 12/21/20 11:56 Review of Systems ROS Statement: Those systems with pertinent positive or pertinent negative responses have been documented in the HPI. ROS Other: All systems not noted in ROS Statement are negative. Past Medical History Past Medical History: No Reported History History of Any Multi-Drug Resistant Organisms: ESBL Date of last positivie culture/infection: 12/02/18 MDRO Source:: ESBL URINE Past Surgical History: Cholecystectomy, Tonsillectomy Past Anesthesia/Blood Transfusion Reactions: No Reported Reaction Past Psychological History: Depression Smoking Status: Current every day smoker Past Alcohol Use History: Occasional, Rare Past Drug Use History: Cocaine, Heroin, Marijuana, Opiates - Past Family History Mother Family Medical History: No Reported History Additional Family Medical History / Comment(s): Mother with depression. General Exam - General Exam Comments Initial Comments: GENERAL: Patient is well-developed and well-nourished. Patient is nontoxic and in no acute distress. HEAD: Atraumatic, normocephalic. EYES: Pupils equal round and reactive to light, extraocular movements intact, sclera anicteric, conjunctiva are normal. Eyelids were unremarkable. ENT: TMs normal, nares patent, oropharynx clear without exudates. Moist mucous membranes. NECK: Normal range of motion, supple without lymphadenopathy or JVD. LUNGS: Unlabored respirations. Breath sounds clear to auscultation bilaterally and equal. No wheezes rales or rhonchi. HEART: Regular rate and rhythm without murmurs, rubs or gallops. ABDOMEN: Soft, mild suprapubic discomfort on palpation, normoactive bowel sounds. No guarding, no rebound. No masses appreciated. MUSCULOSKELETAL: Normal extremities with adequate strength and normal range of motion, no pitting or edema. No clubbing or cyanosis. NEUROLOGICAL: Patient is alert and oriented x 3. Motor and sensory are also intact. Cranial nerves II through XII grossly intact. Symmetrical smile. Normal speech, normal gait. PSYCH: Normal mood, normal affect. SKIN: Warm, Dry, normal turgor, no rashes or lesions noted. Limitations: no limitations External exam: Present: normal external exam Speculum exam: Present: vaginal bleeding Course Vital Signs 12/21/20 12/21/20 12/21/20 11:52 12:56 15:10 Temperature 98.0 F 97.8 F Pulse Rate 67 70 Respiratory 20 16 18 Rate Blood Pressure 123/69 120/74 O2 Sat by Pulse 99 98 Oximetry Medical Decision Making - Medical Decision Making Patient is a 30-year-old female presenting for vaginal bleeding since yesterday. She went to her PCPs office which revealed a positive test so she was sent here for further evaluation. Her vital signs are stable. Labs are within normal limits, hCG Quant is 12,360. Urine shows significant amount of blood. Urine culture is pending. Ultrasound reveals a somewhat thickened endometrium, a discrete gestational sac, yolk sac is not evident. No IUP is seen at this time. Patient's blood type is B+. Given patient's hCG Quant and symptoms, I discussed with patient that this is most likely a miscarriage. I will give her a lab slip to repeat beta hCG in 48 hours. She needs to follow up with her [employer] RESEARCH ASSISTANT. She was given some Tylenol and Motrin for her cramping. She is in agreement this plan of care. Strict return parameters were discussed with the patient she verbalized understanding. Case discussed with Dr. Cheng. - Lab Data Result diagrams: 12/21/20 13:13 12/21/20 13:13 Lab Results 12/21/20 12/21/20 12/21/20 Range/Units 13:13 13:13 13:13 WBC 10.8 H (3.8-10.6) k/uL RBC 4.31 (3.80-5.40) m/uL Hgb 12.8 (11.4-16.0) gm/dL Hct 39.4 (34.0-46.0) % MCV 91.4 (80.0-100.0) fL MCH 29.6 (25.0-35.0) pg MCHC 32.4 (31.0-37.0) g/dL RDW 13.3 (11.5-15.5) % Plt Count 293 (150-450) k/uL MPV 7.5 Neutrophils % 79 % Lymphocytes % 14 % Monocytes % 4 % Eosinophils % 1 % Basophils % 1 % Neutrophils # 8.6 H (1.3-7.7) k/uL Lymphocytes # 1.5 (1.0-4.8) k/uL Monocytes # 0.4 (0-1.0) k/uL Eosinophils # 0.1 (0-0.7) k/uL Basophils # 0.1 (0-0.2) k/uL Sodium (137-145) mmol/L Potassium (3.5-5.1) mmol/L Chloride (98-107) mmol/L Carbon Dioxide (22-30) mmol/L Anion Gap mmol/L BUN (7-17) mg/dL Creatinine (0.52-1.04) mg/dL Est GFR (CKD-EPI)AfAm (>60 ml/min/1.73 sqM) Est GFR (CKD-EPI)NonAf (>60 ml/min/1.73 sqM) Glucose (74-99) mg/dL Calcium (8.4-10.2) mg/dL Total Bilirubin (0.2-1.3) mg/dL AST (14-36) U/L ALT (4-34) U/L Alkaline Phosphatase (38-126) U/L Total Protein (6.3-8.2) g/dL Albumin (3.5-5.0) g/dL HCG, Quant mIU/mL Urine Color Red Urine Appearance Bloody H (Clear) Urine RBC >182 H (0-5) /hpf Urine WBC >182 H (0-5) /hpf Blood Type B Positive Blood Type Recheck B Pos Bld Type Recheck Status No 12/21/20 Range/Units 13:13 WBC (3.8-10.6) k/uL RBC (3.80-5.40) m/uL Hgb (11.4-16.0) gm/dL Hct (34.0-46.0) % MCV (80.0-100.0) fL MCH (25.0-35.0) pg MCHC (31.0-37.0) g/dL RDW (11.5-15.5) % Plt Count (150-450) k/uL MPV Neutrophils % % Lymphocytes % % Monocytes % % Eosinophils % % Basophils % % Neutrophils # (1.3-7.7) k/uL Lymphocytes # (1.0-4.8) k/uL Monocytes # (0-1.0) k/uL Eosinophils # (0-0.7) k/uL Basophils # (0-0.2) k/uL Sodium 137 (137-145) mmol/L Potassium 4.0 (3.5-5.1) mmol/L Chloride 104 (98-107) mmol/L Carbon Dioxide 27 (22-30) mmol/L Anion Gap 6 mmol/L BUN 8 (7-17) mg/dL Creatinine 0.57 (0.52-1.04) mg/dL Est GFR (CKD-EPI)AfAm >90 (>60 ml/min/1.73 sqM) Est GFR (CKD-EPI)NonAf >90 (>60 ml/min/1.73 sqM) Glucose 82 (74-99) mg/dL Calcium 8.9 (8.4-10.2) mg/dL Total Bilirubin 0.5 (0.2-1.3) mg/dL AST 24 (14-36) U/L ALT 13 (4-34) U/L Alkaline Phosphatase 69 (38-126) U/L Total Protein 6.6 (6.3-8.2) g/dL Albumin 4.1 (3.5-5.0) g/dL HCG, Quant 19630.9 mIU/mL Urine Color Urine Appearance (Clear) Urine RBC (0-5) /hpf Urine WBC (0-5) /hpf Blood Type Blood Type Recheck Bld Type Recheck Status Disposition Clinical Impression: Miscarriage, Vaginal bleeding Disposition: HOME SELF-CARE Condition: Stable Instructions (If sedation given, give patient instructions): Miscarriage (ED) Additional Instructions: Please return to the Emergency Department if symptoms worsen or any other concerns. May take Tylenol or Motrin for any abdominal cramping. Please have beta hCG levels rechecked in 48 hours as discussed. Follow up with [employer]EARCH ASSISTANT. Is patient prescribed a controlled substance at d/c from ED?: No Referrals: Lopez Marshall MD [Primary Care Provider] - 1-2 days Alfredito Alvarez MD [STAFF PHYSICIAN] - 1-2 days
[2020-12-21 15:13] VITALS: BP 120/74; PULSE 70; RESP 18; TEMP 97.8
== END 2020-12-21 15:13 | disposition home or self-care (01) ==
LOC: EC 11:50
DX: O03.9 Complete or unspecified spontaneous abortion without complication (principal); O99.330 Smoking (tobacco) complicating pregnancy, unspecified trimester; F17.200 Nicotine dependence, unspecified, uncomplicated; Z88.0 Allergy status to penicillin; Z79.1 Long term (current) use of non-steroidal anti-inflammatories (NSAID); Z3A.00 Weeks of gestation of pregnancy not specified
CPT/HCPCS: 36415; 76801; 76817; 80053; 81001; 84702; 85025; 86900; 86901; 87086; 99284

== ENCOUNTER 2022-08-01 22:04 | Emergency (ER) | payer OTHER ==
[2022-08-01 22:16] VITALS: RESP 16
[2022-08-01] MEDS ORDERED: LORazepam 0.5 MG TAB PO STA (22:18)
[2022-08-01] MEDS ORDERED: dexAMETHasone 4 MG TAB PO STA (22:18)
--- NOTE | 2022-08-01 22:22 | ED ---
General Adult HPI <Andres Stewart - Last Filed: 08/02/22 00:04> - General Source: patient, RN notes reviewed, old records reviewed Mode of arrival: ambulatory Limitations: no limitations <Phuc Ruelas - Last Filed: 08/02/22 23:30> - General Chief complaint: ENT Stated complaint: earache Time Seen by Provider: 08/01/22 22:12 - History of Present Illness Initial comments: Patient is a 32-year-old female with past medical history remarkable for anxiety, who presents emergency Department complaining of mild anxiety as well as a one-day history of sore throat as well as right ear pain. States it hurts in her right ear when she swallows. States it feels like early onset of an illness. Also endorses generalized fatigue. Denies any cough but does endorse nasal congestion. Denies any history of ear infections. Unknown sick contacts. He was vaccinated for COVID-19 did not receive any booster vaccines. Presents for further evaluation at this time. Denies any chest pain, shortness breath, abdominal pain, nausea, vomiting. Denies any fevers. (Phuc Ruelas) - Related Data Home Medications Medication Instructions Recorded Confirmed Sertraline [Zoloft] 100 mg PO DAILY 03/07/20 03/07/20 medroxyPROGESTERone [Depo-Provera] 150 mg IM Q90D 03/07/20 03/07/20 Previous Rx's Medication Instructions Recorded Propranolol [Inderal] 10 mg PO TID #30 tab 03/05/20 Ibuprofen [Motrin] 600 mg PO Q8HR PRN #30 tab 06/06/20 Gabapentin [Neurontin] 100 mg PO BID 3 Days #6 cap 12/07/20 [place] Carbonate 300 mg PO BID 3 Days #6 capsule 12/07/20 Allergies Allergy/AdvReac Type Severity Reaction Status Date / Time Penicillins Allergy Rash/Hives Verified 08/01/22 22:11 Review of Systems ROS Other: All systems not noted in ROS Statement are negative. <Andres Stewart - Last Filed: 08/02/22 00:04> ROS Other: All systems not noted in ROS Statement are negative. <Phuc Ruelas - Last Filed: 08/02/22 23:30> ROS Statement: Those systems with pertinent positive or pertinent negative responses have been documented in the HPI. Review of Systems: CONST: Denies fever EYES: Denies blurry vision ENT: Endorses nasal congestion, right ear pain C/V: Denies Chest pain RESP: Denies shortness of breath GI: Denies abdominal pain : Denies dysuria SKIN: Denies rash. MSK: Denies joint pain. NEURO: Denies headache (Phuc Ruelas) Past Medical History Past Medical History: No Reported History History of Any Multi-Drug Resistant Organisms: ESBL Date of last positivie culture/infection: 12/02/18 MDRO Source:: ESBL URINE Past Surgical History: Cholecystectomy, Tonsillectomy Past Anesthesia/Blood Transfusion Reactions: No Reported Reaction Past Psychological History: Depression Smoking Status: Current every day smoker Past Alcohol Use History: Occasional, Rare Past Drug Use History: Cocaine, Heroin, Marijuana, Opiates - Past Family History Mother Family Medical History: No Reported History Additional Family Medical History / Comment(s): Mother with depression. <Phuc Ruelas - Last Filed: 08/02/22 23:30> General Exam Limitations: no limitations <Phuc Ruelas - Last Filed: 08/02/22 23:30> - General Exam Comments Initial Comments: General: Appears in no acute distress. HEAD: Normal with no signs of head trauma. EYES: PERRLA, EOMI, conjunctiva normal, no discharge. ENT: Hearing grossly intact. Bilateral TMs within normal limits. Erythematous posterior oropharynx. No tongue swelling. Uvula midline. Rhinorrhea. RESPIRATORY: Clear breath sounds bilaterally. No wheezes, rales, or rhonchi. No increased work of breathing. No hypoxia. C/V: Regular rate and rhythm. S1 and S2 auscultated. ABD: Nondistended. EXT: No obvious deformity. SKIN: No rashes or lesions observed on exposed skin. NEURO: Alert and oriented 4. (Phuc Ruelas) Course Vital Signs 08/01/22 08/01/22 08/02/22 22:09 22:15 00:08 Temperature 97.8 F 97.6 F Pulse Rate 98 72 68 Respiratory 20 16 16 Rate Blood Pressure 140/84 128/101 128/86 O2 Sat by Pulse 100 99 100 Oximetry Medical Decision Making <Phuc Ruelas - Last Filed: 08/02/22 23:30> - Medical Decision Making Based on the patient's presentation and physical exam, I'm concerned for upper respiratory infection for the patient. Vital signs are within acceptable limits. I did offer a dose of steroids as well as a small dose of Ativan at her request. She was in agreement this plan. We will obtain a strep throat swab as well as Covid and flu swabs. Swabs are still pending at this time. Patient was signed out to Dr. Stewart. Disposition pending results of labs. Viral testing eventually returned negative. Strep throat was negative. She was discharged home. (Phuc Ruelas) - Lab Data Lab Results 08/01/22 08/01/22 08/01/22 Range/Units 22:20 22:20 22:20 Coronavirus (PCR) Not Detected (Not Detectd) Influenza Type A RNA Not Detected (Not Detectd) Influenza Type B (PCR) Not Detected (Not Detectd) Group A Strep (PCR) NOT DETECTED (Not Detectd) Disposition Is patient prescribed a controlled substance at d/c from ED?: No <Andres Stewart - Last Filed: 08/02/22 00:04> <Phuc Ruelas - Last Filed: 08/02/22 23:30> Clinical Impression: Upper respiratory infection Disposition: HOME SELF-CARE Condition: Good Instructions (If sedation given, give patient instructions): Upper Respiratory Infection (ED) Referrals: Lopez Marshall MD [Primary Care Provider] - 1-2 days
[2022-08-02 00:09] VITALS: BP 128/86; PULSE 68; TEMP 97.6
== END 2022-08-02 00:10 | disposition home or self-care (01) ==
LOC: EC 22:04
DX: J06.9 Acute upper respiratory infection, unspecified (principal); F32.A Depression, unspecified; F17.200 Nicotine dependence, unspecified, uncomplicated; Z20.822 Contact with and (suspected) exposure to COVID-19; Z88.0 Allergy status to penicillin
CPT/HCPCS: 87651; 87502; 87635; 99283; J8540

== ENCOUNTER 2022-08-18 13:56 | Emergency (ER) | payer OTHER ==
[2022-08-18] MEDS ORDERED: Acetaminophen-Codeine 300-30mg TAB PO STA (16:55)
--- NOTE | 2022-08-18 17:00 | ED ---
General Adult HPI - General Chief complaint: Urogenital Stated complaint: Back/abd pain Time Seen by Provider: 08/18/22 16:42 Source: patient, RN notes reviewed Mode of arrival: ambulatory Limitations: no limitations - History of Present Illness Initial comments: 32-year-old female presents to the emergency Department with complaints of malodorous vaginal discharge. States she has a history of Trichomonas and feels that her symptoms are similar to that. Denies pelvic pain or abdominal pain. States she has had some flank and back pain on the right side and is concerned about a possible UTI. Also has dental pain from a cracked tooth. Is awaiting treatment at the [facility]. States she cannot take Motrin or NSAIDs due to colitis. Has not been on any antibiotics recently. Denies fever, chills, headache, dizziness, chest pain, abdominal pain, nausea, vomiting, diarrhea, or dysuria. - Related Data Home Medications Medication Instructions Recorded Confirmed Sertraline [Zoloft] 100 mg PO DAILY 03/07/20 03/07/20 medroxyPROGESTERone [Depo-Provera] 150 mg IM Q90D 03/07/20 03/07/20 Previous Rx's Medication Instructions Recorded Propranolol [Inderal] 10 mg PO TID #30 tab 03/05/20 Ibuprofen [Motrin] 600 mg PO Q8HR PRN #30 tab 06/06/20 Gabapentin [Neurontin] 100 mg PO BID 3 Days #6 cap 12/07/20 [place] Carbonate 300 mg PO BID 3 Days #6 capsule 12/07/20 Doxycycline [Vibramycin] 100 mg PO BID 7 Days #14 capsule 08/18/22 metroNIDAZOLE 500 mg PO BID 14 Days #7 tablet 08/18/22 Allergies Allergy/AdvReac Type Severity Reaction Status Date / Time Penicillins Allergy Rash/Hives Verified 08/01/22 22:11 Review of Systems ROS Statement: Those systems with pertinent positive or pertinent negative responses have been documented in the HPI. ROS Other: All systems not noted in ROS Statement are negative. Past Medical History Past Medical History: No Reported History History of Any Multi-Drug Resistant Organisms: None Reported, ESBL Date of last positivie culture/infection: 12/02/18 MDRO Source:: ESBL URINE Past Surgical History: No Surgical Hx Reported, Cholecystectomy, Tonsillectomy Past Anesthesia/Blood Transfusion Reactions: No Reported Reaction Past Psychological History: Depression Smoking Status: Current every day smoker Past Alcohol Use History: Occasional, Rare Past Drug Use History: Cocaine, Heroin, Marijuana, Opiates - Past Family History Mother Family Medical History: No Reported History Additional Family Medical History / Comment(s): Mother with depression. General Exam Limitations: no limitations General appearance: alert, in no apparent distress Eye exam: Present: normal appearance. Absent: scleral icterus, conjunctival injection ENT exam: Present: mucous membranes moist, TM's normal bilaterally Expanded Mouth exam: Present: normal external inspection. Absent: trismus Teeth exam: Present: dental caries, dental tenderness # (32) Respiratory exam: Present: normal lung sounds bilaterally. Absent: respiratory distress, wheezes, rales, rhonchi, stridor Cardiovascular Exam: Present: regular rate, normal rhythm, normal heart sounds. Absent: systolic murmur, diastolic murmur, rubs, gallop, clicks GI/Abdominal exam: Present: soft, normal bowel sounds. Absent: distended, tenderness, guarding, rebound, rigid External exam: Present: normal external exam Speculum exam: Present: cervical discharge (small amount of thin yellowish/white cervical discharge). Absent: erythema Back exam: Absent: CVA tenderness (R), CVA tenderness (L) Neurological exam: Present: alert, oriented X3, normal gait Psychiatric exam: Present: normal affect, normal mood Skin exam: Present: warm, dry, intact, normal color. Absent: rash Course Vital Signs 08/18/22 08/18/22 08/18/22 15:08 16:49 18:00 Temperature 98 F Pulse Rate 106 H 95 80 Respiratory 18 20 20 Rate Blood Pressure 102/67 105/72 105/60 O2 Sat by Pulse 97 98 98 Oximetry 08/18/22 19:31 Temperature 97.7 F Pulse Rate 89 Respiratory 16 Rate Blood Pressure 102/71 O2 Sat by Pulse 97 Oximetry - Reevaluation(s) Reevaluation #1: 08/18/22 18:04 Patient updated on results. Resting comfortably. Speculum exam unremarkable. Trichomonas swab sent. 08/18/22 19:00 Course of treatment discussed with patient. She prefers prophylactic STI treatment. Ceftriaxone and doxycycline ordered and patient will be discharged home with a prescription for doxycycline. Discussed safe sex practices. Medical Decision Making - Medical Decision Making This is a 32-year-old female who presents to the emergency department with multiple complaints including concern for sexually transmitted infection, specifically Trichomonas. In addition, she does complain of dental pain. Upon exam, patient is well-appearing and in no acute distress. Pelvic exam is unremarkable. There is thin whitish yellow discharge with no cervical erythema or CMT. Prophylactic antibiotic treatment will be initiated per updated CDC STI guidelines. Trichomonas is negative. Discharge is more likely to be bacterial vaginosis therefore patient will be treated with metronidazole in addition to the doxycycline for prophylaxis. States sex precautions discussed with patient. She verbalizes understanding. Encouraged to see PCP for recheck. Instructed to follow up with dentist for further evaluation and treatment. Attending: Prosper. - Lab Data Lab Results 08/18/22 08/18/22 08/18/22 Range/Units 16:50 16:50 17:01 Urine Color Light Yellow Urine Appearance Clear (Clear) Urine pH 6.5 (5.0-8.0) Ur Specific [place] 1.010 (1.001-1.035) Urine Protein Negative (Negative) Urine Glucose (UA) Negative (Negative) Urine Ketones Negative (Negative) Urine Blood Negative (Negative) Urine Nitrite Negative (Negative) Urine Bilirubin Negative (Negative) Urine Urobilinogen <2.0 (<2.0) mg/dL Ur Leukocyte Esterase Large H (Negative) Urine RBC 1 (0-5) /hpf Urine WBC 9 H (0-5) /hpf Ur Squamous Epith Cells 4 (0-4) /hpf Urine Bacteria Rare H (None) /hpf Urine Mucus Rare H (None) /hpf Urine HCG, Qual Not Detected (Not Detectd) Trichomonas Ag (Rapid) Negative (Negative) Disposition Clinical Impression: Need for prophylaxis against sexually transmitted diseases, Pain, dental, Bacterial vaginosis Disposition: HOME SELF-CARE Condition: Stable Instructions (If sedation given, give patient instructions): Bacterial Vaginosis (ED), Dental Abscess (ED) Additional Instructions: Take antibiotic as prescribed. Follow-up with dentist as soon as possible for further evaluation and treatment. Abstain from sexual intercourse while taking antibiotic. You will receive a call if your cultures come back positive. Follow-up with your PCP for a recheck. Return to the emergency department with any new, worsening, or concerning symptoms. Prescriptions: metroNIDAZOLE 500 mg PO BID 14 Days #7 tablet Doxycycline [Vibramycin] 100 mg PO BID 7 Days #14 capsule Is patient prescribed a controlled substance at d/c from ED?: No Referrals: Lopez Marshall MD [Primary Care Provider] - 1-2 days Time of Disposition: 19:09
[2022-08-18 17:15] LABS: Appearance,Urine Clear (Clear); Bacteria,Urine Rare /hpf; Bilirubin,Urine Negative (Negative); Blood,Urine Negative (Negative); Color,Urine Light Yellow; Glucose,Urine (UA) Negative (Negative); Ketones,Urine Negative (Negative); Leukocyte Esterase,Urine Large (Negative); Mucus,Urine Rare /hpf; Nitrite,Urine Negative (Negative); PH, Urine 6.5 (5.0-8.0); Protein,Urine Negative (Negative); RBC,Urine 1 /hpf (0-5); Squamous Epithelial Cell,Urine 4 /hpf (0-4); Urobilinogen,Urine <2.0 mg/dL (<2.0); WBC,Urine 9 /hpf (0-5)
[2022-08-18] MEDS ORDERED: cefTRIAXone 250 MG VIAL IM STA (18:56)
[2022-08-18] MEDS ORDERED: DOXYCYCLINE 100 MG CAP PO STA (18:56)
[2022-08-18] MEDS ORDERED: ACET/COD 300 MG/30 MG STARTER PACK 6 TAB BTL PO STA (19:08)
[2022-08-18] MEDS ORDERED: metroNIDAZOLE 500 MG TAB PO STA (19:08)
[2022-08-18 19:33] VITALS: BP 102/71; PULSE 89; RESP 16; TEMP 97.7
[2022-08-20 14:05] LABS: C. trachomatis,PCR Positive (Neg,Equiv); Chlamydia trachomatis Source Urine; N. gonorrhoeae,PCR Positive (Neg,Equiv); Neisseria Source Urine
== END 2022-08-18 19:33 | disposition home or self-care (01) ==
LOC: EC 13:56
DX: A64 Unspecified sexually transmitted disease (principal); N76.0 Acute vaginitis; K08.89 Other specified disorders of teeth and supporting structures; F17.200 Nicotine dependence, unspecified, uncomplicated; Z88.0 Allergy status to penicillin
CPT/HCPCS: 81001; 81025; 87808; 87491; 87591; 99284; 96372; J0696

== ENCOUNTER 2022-09-30 16:38 | Emergency (ER) | payer OTHER ==
[2022-09-30 16:51] VITALS: BP 104/62; PULSE 87; RESP 16; TEMP 97.5
[2022-09-30] MEDS ORDERED: CLINDAMYCIN 150 MG CAP PO STA (18:26)
[2022-09-30] MEDS ORDERED: ACET/COD 300 MG/30 MG STARTER PACK 6 TAB BTL PO STA (18:26)
--- NOTE | 2022-09-30 18:37 | ED ---
General Adult HPI - General Chief complaint: Dental/Oral Stated complaint: Tooth Pain Time Seen by Provider: 09/30/22 18:14 Source: patient, RN notes reviewed Mode of arrival: ambulatory Limitations: no limitations - History of Present Illness Initial comments: 32-year-old female presents to the emergency Department with complaints of dental pain that has been an ongoing issue. States she has been taking Motrin for discomfort with minimal improvement. Reports concern for infection and she feels a swollen area at the base of the tooth. States pain radiates into her TMJ. Has not been running a fever. Has an appointment to see the dentist next month, but is calling to see about availability. No fever, chills, difficulty breathing, or swallowing. - Related Data Home Medications Medication Instructions Recorded Confirmed Sertraline [Zoloft] 100 mg PO DAILY 03/07/20 03/07/20 medroxyPROGESTERone [Depo-Provera] 150 mg IM Q90D 03/07/20 03/07/20 Previous Rx's Medication Instructions Recorded Propranolol [Inderal] 10 mg PO TID #30 tab 03/05/20 Ibuprofen [Motrin] 600 mg PO Q8HR PRN #30 tab 06/06/20 Gabapentin [Neurontin] 100 mg PO BID 3 Days #6 cap 12/07/20 [place] Carbonate 300 mg PO BID 3 Days #6 capsule 12/07/20 Doxycycline [Vibramycin] 100 mg PO BID 7 Days #14 capsule 08/18/22 metroNIDAZOLE 500 mg PO BID 14 Days #7 tablet 08/18/22 Clindamycin [Cleocin] 150 mg PO TID 7 Days #63 capsule 09/30/22 Allergies Allergy/AdvReac Type Severity Reaction Status Date / Time Penicillins Allergy Rash/Hives Verified 08/01/22 22:11 Review of Systems ROS Statement: Those systems with pertinent positive or pertinent negative responses have been documented in the HPI. ROS Other: All systems not noted in ROS Statement are negative. Past Medical History Past Medical History: No Reported History Additional Past Medical History / Comment(s): colitis History of Any Multi-Drug Resistant Organisms: None Reported, ESBL Date of last positivie culture/infection: 12/02/18 MDRO Source:: ESBL URINE Past Surgical History: No Surgical Hx Reported, Cholecystectomy, Tonsillectomy Past Anesthesia/Blood Transfusion Reactions: No Reported Reaction Past Psychological History: Depression Smoking Status: Current every day smoker Past Alcohol Use History: Occasional, Rare Past Drug Use History: Cocaine, Heroin, Marijuana, Opiates - Past Family History Mother Family Medical History: No Reported History Additional Family Medical History / Comment(s): Mother with depression. General Exam Limitations: no limitations (Developed, well-nourished female in no acute distress, though does appear uncomfortable due to pain.) General appearance: alert, in no apparent distress Expanded Mouth exam: Present: normal external inspection, tongue normal Teeth exam: Present: dental caries, other (Periapical abscess #31) Throat exam: normal inspection Neck exam: Present: normal inspection, full ROM. Absent: tenderness, meningismus, lymphadenopathy Respiratory exam: Present: normal lung sounds bilaterally. Absent: respiratory distress, wheezes, rales, rhonchi, stridor Cardiovascular Exam: Present: regular rate, normal rhythm, normal heart sounds. Absent: systolic murmur, diastolic murmur, rubs, gallop, clicks Neurological exam: Present: alert, oriented X3, CN II-XII intact Course Vital Signs 09/30/22 16:49 Temperature 97.5 F L Pulse Rate 87 Respiratory 16 Rate Blood Pressure 104/62 O2 Sat by Pulse 98 Oximetry Medical Decision Making - Medical Decision Making 32-year-old female with poor dentition presents to the emergency department for evaluation of dental pain. Upon exam, patient is noted to have periapical abscess at tooth number #31. She is having difficulty making arrangements to see a dentist therefore came to the emergency department for antibiotic treatment. No trismus, difficulty swallowing, or submandibular swelling. Patient was given a dose of clindamycin and prescription will be sent to the pharmacy. Tylenol No. 3 starter pack was provided. She is encouraged to call the dentist in the morning to discuss options for further evaluation and treatment. Return parameters discussed in detail. Patient verbalizes understanding and agrees with this plan. Attending: Prosper Was pt. sent in by a medical professional or institution? @ -No Did you speak to anyone other than the patient for history? @ -No Did you review nursing and triage notes? @ -Yes, agree Were old charts reviewed? @ -No Differential Diagnosis? @ -Dental caries, periapical abscess, Edvin's angina, peritonsillar abscess, this is not meant to be an exhaustive list EKG interpreted by me (3pts min.)? @ -Not applicable X-rays interpreted by me (1pt min.)? @ -Not applicable CT interpreted by me (1pt min.)? @ -Not applicable U/S interpreted by me (1pt. min.)? @ -Not applicable What testing was considered but not performed? (CT, X-rays, U/S, labs)? Why? @ -None What meds were considered but not given? Why? @ -Augmentin considered, but patient does have a penicillin ALLERGY Did you discuss the management of the patient with other professionals? @ -None Did you reconcile home meds? @ -No Was smoking cessation discussed for >3mins.? @ -No Was critical care preformed (if so, how long)? @ -No Were there social determinants of health that impacted care today? How? (Homelessness, low income, unemployed, alcoholism, drug addiction, transportation, low edu. Level, literacy, decrease access to med. care, assisted, rehab)? @ -No Was there de-escalation of care discussed even if they declined? (Discuss DNR or withdrawal of care, Hospice)? @ -No What co-morbidities impacted this encounter? (DM, HTN, Smoking, COPD, CAD, Cancer, CVA, Hep., AIDS, mental health diagnosis, sleep apnea, morbid obesity)? @ -Poor dentition Was patient admitted / discharged? @ -Discharged Undiagnosed new problem with uncertain prognosis? @ -None Drug Therapy requiring intensive monitoring for toxicity (Heparin, Nitro, Insulin, Cardizem)? @ -None Were any procedures done? @ -None Diagnosis/symptom? @ -Periapical abscess Acute, or Chronic, or Acute on Chronic? @ -Acute Uncomplicated (without systemic symptoms) or Complicated (systemic symptoms)? @ -Uncomplicated Side effects of treatment? @ -None Exacerbation, Progression, or Severe Exacerbation] @ -No Poses a threat to life or bodily function? @ -No Disposition Clinical Impression: Periapical abscess Disposition: HOME SELF-CARE Condition: Stable Instructions (If sedation given, give patient instructions): Dental Abscess (ED) Additional Instructions: Take antibiotic as directed. Continue your endeavors to get into the dentist as soon as possible. You are being given a Tylenol with Codeine starter pack. Use this for more severe pain. Motrin for mild to moderate pain. Return to the emergency department with any new, worsening, or concerning symptoms. Prescriptions: Clindamycin [Cleocin] 150 mg PO TID 7 Days #63 capsule Is patient prescribed a controlled substance at d/c from ED?: No Referrals: Lopez Marshall MD [Primary Care Provider] - 1-2 days Time of Disposition: 18:37
== END 2022-09-30 19:04 | disposition home or self-care (01) ==
LOC: EC 16:38
DX: K04.7 Periapical abscess without sinus (principal); F32.A Depression, unspecified; F17.200 Nicotine dependence, unspecified, uncomplicated; Z88.0 Allergy status to penicillin
CPT/HCPCS: 99282

== ENCOUNTER 2023-04-18 12:31 | Emergency (ER) | payer OTHER ==
[2023-04-18] MEDS ORDERED: LIDOCAINE 5% PATCH TOPICAL STA (12:55)
[2023-04-18] MEDS ORDERED: KETOROLAC 15 MG/ML 1 ML VIAL IM STA (12:55)
[2023-04-18] MEDS ORDERED: ONDANSETRON ODT 4 MG TAB PO STA (13:21)
--- NOTE | 2023-04-18 14:23 | XR ---
EXAMINATION TYPE: XR PA chest and left rib series, 3 views DATE OF EXAM: 04/18/2023 Comparison: None Clinical History: 32-year-old female pain after injury Findings: The cardiomediastinal silhouette, aorta, and pulmonary vasculature are within normal limits. Lungs and pleural spaces are clear. No displaced left rib fracture seen. Impression: No acute cardiopulmonary process. No displaced left rib fracture seen.
--- NOTE | 2023-04-18 14:24 | XR ---
EXAMINATION TYPE: XR finger RT DATE OF EXAM: 04/18/2023 COMPARISON: Old study 08/11/2010 HISTORY: 32-year-old female middle finger injury and pain TECHNIQUE: 3 views coned on right third digit FINDINGS: No acute fracture, subluxation, dislocation. IMPRESSION: Images coned-down onto the right third finger. No acute osseous abnormality seen.
[2023-04-18 14:33] VITALS: RESP 16
[2023-04-18] MEDS ORDERED: ACETAMINOPHEN TAB 500 MG TAB PO STA (14:37)
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
[2023-04-18 15:12] VITALS: BP 129/76; PULSE 91; TEMP 98.2
== END 2023-04-18 15:13 | disposition home or self-care (01) ==
LOC: EC 12:31
DX: S20.219A Contusion of unspecified front wall of thorax, initial encounter (principal); Z86.59 Personal history of other mental and behavioral disorders; F17.290 Nicotine dependence, other tobacco product, uncomplicated; F12.90 Cannabis use, unspecified, uncomplicated; Z88.0 Allergy status to penicillin; Y04.2XXA Assault by strike against or bumped into by another person, initial encounter
CPT/HCPCS: 71101; 73140; 99284; 96372; J1885

== ENCOUNTER 2023-04-19 08:37 | Emergency (ER) | payer OTHER ==
[2023-04-19 08:49] VITALS: TEMP 98.6
--- NOTE | 2023-04-19 09:10 | ED ---
General Adult HPI - General Chief complaint: Psychiatric Symptoms Stated complaint: mental health Time Seen by Provider: 04/19/23 08:49 Source: patient, RN notes reviewed, old records reviewed Mode of arrival: ambulatory Limitations: no limitations - History of Present Illness Initial comments: 32-year-old female presenting for mental health evaluation. She states does admit to using illicit drugs. She states that she is currently homeless. She states she's had racing thoughts and her speech is pressured at the time my evaluation. Denies suicidal or homicidal ideation. She states she is hearing voices. - Related Data Home Medications Medication Instructions Recorded Confirmed Ibuprofen [Motrin] 600 mg PO DIRECTED PRN 04/19/23 04/19/23 Lidocaine 5% Patch [Lidoderm 5% 1 patch TOPICAL DIRECTED PRN 04/19/23 04/19/23 Patch] Allergies Allergy/AdvReac Type Severity Reaction Status Date / Time Penicillins Allergy Anaphylaxis Verified 04/19/23 09:22 Review of Systems ROS Statement: Those systems with pertinent positive or pertinent negative responses have been documented in the HPI. ROS Other: All systems not noted in ROS Statement are negative. Past Medical History Past Medical History: No Reported History Additional Past Medical History / Comment(s): colitis History of Any Multi-Drug Resistant Organisms: None Reported, ESBL Date of last positivie culture/infection: 12/02/18 MDRO Source:: ESBL URINE Past Surgical History: Cholecystectomy, Tonsillectomy Past Anesthesia/Blood Transfusion Reactions: No Reported Reaction Past Psychological History: Depression, PTSD Smoking Status: Current every day smoker, Vaper Past Alcohol Use History: Occasional Past Drug Use History: Marijuana, Opiates - Past Family History Mother Family Medical History: No Reported History Additional Family Medical History / Comment(s): Mother with depression. General Exam Limitations: no limitations General appearance: alert, anxious Head exam: Present: atraumatic, normocephalic Eye exam: Present: normal appearance, PERRL ENT exam: Present: normal exam Neck exam: Present: normal inspection. Absent: tenderness, meningismus Respiratory exam: Present: normal lung sounds bilaterally. Absent: respiratory distress, wheezes Cardiovascular Exam: Present: regular rate, normal rhythm GI/Abdominal exam: Present: soft. Absent: distended, tenderness, guarding Extremities exam: Present: normal inspection Neurological exam: Present: alert, oriented X3, CN II-XII intact, normal gait. Absent: motor sensory deficit Psychiatric exam: Present: agitated, other (Manic, delusional) Skin exam: Present: warm, dry, intact Course Vital Signs 04/19/23 04/19/23 04/19/23 08:42 10:37 11:48 Temperature 98.6 F Pulse Rate 89 90 Respiratory 16 15 18 Rate Blood Pressure 135/85 122/85 O2 Sat by Pulse 100 98 Oximetry - Reevaluation(s) Reevaluation #1: 04/19/23 14:25 Patient will be discharged from the emergency department and will go to the [facility] in [place]. Medical Decision Making - Medical Decision Making Was pt. sent in by a medical professional or institution (, PA, BLOOD BANK ASSISTANT, urgent care, hospital, or prison...) When possible be specific @ -No Did you speak to anyone other than the patient for history (EMS, parent, family, police, friend...)? What history was obtained from this source @ -No Did you review nursing and triage notes (agree or disagree)? Why? @ -I reviewed and agree with nursing and triage notes Were old charts reviewed (outside hosp., previous admission, EMS record, old EKG, old radiological studies, urgent care reports/EKG's, prison records)? Report findings @ -No old charts were reviewed Differential Diagnosis (chest pain, altered mental status, abdominal pain women, abdominal pain men, vaginal bleeding, weakness, fever, dyspnea, syncope, headache, dizziness, GI bleed, back pain, seizure, CVA, palpatations, mental health, musculoskeletal)? @ Differential Mental Health Depression, anxiety, bipolar, psychosis, schizophrenia, borderline personality, situational depression, adjustment disorder, behavioral disorder, brain tumor, malingering, substance abuse, encephalopathy, medication reaction, dementia, hypothyroidism, degenerative neurologic disorder, lupus.... This is not meant to be all-inclusive list EKG interpreted by me (3pts min.). @ -As above X-rays interpreted by me (1pt min.). @ -None done CT interpreted by me (1pt min.). @ -None done U/S interpreted by me (1pt. min.). @ -None done What testing was considered but not performed or refused? (CT, X-rays, U/S, labs)? Why? @ -None What meds were considered but not given or refused? Why? @ -None Did you discuss the management of the patient with other professionals (professionals i.e. , PA, BLOOD BANK ASSISTANT, lab, RT, psych nurse, socially responsible investment adviser, powder coater, teacher, first officer and flight instructor, case hardener)? Give summary @ -[EPS nurse Was smoking cessation discussed for >3mins.? @ -No Was critical care preformed (if so, how long)? @ -No Were there social determinants of health that impacted care today? How? (Homelessness, low income, unemployed, alcoholism, drug addiction, transportation, low edu. Level, literacy, decrease access to med. care, fpc, rehab)? @ -No Was there de-escalation of care discussed even if they declined (Discuss DNR or withdrawal of care, Hospice)? DNR status @ -No What co-morbidities impacted this encounter? (DM, HTN, Smoking, COPD, CAD, Cancer, CVA, ARF, Chemo, Hep., AIDS, mental health diagnosis, sleep apnea, morbid obesity)? @ -None Was patient admitted / discharged? Hospital course, mention meds given and route, prescriptions, significant lab abnormalities, going to OR and other pertinent info. @ -Patient was evaluated by EPS and felt to be safe for discharge. They have arranged follow-up on an outpatient basis. The patient is not suicidal or homicidal. She is alert. She is stable for discharge. Undiagnosed new problem with uncertain prognosis? @ -No Drug Therapy requiring intensive monitoring for toxicity (Heparin, Nitro, Insulin, Cardizem)? @ -No Were any procedures done? @ -No Diagnosis/symptom? @ -Depression Acute, or Chronic, or Acute on Chronic? @ -[Acute Uncomplicated (without systemic symptoms) or Complicated (systemic symptoms)? @ -default Side effects of treatment? @ -No Exacerbation, Progression, or Severe Exacerbation? @ -No Poses a threat to life or bodily function? How? (Chest pain, [place], [place], pneumonia, PE, COPD, DKA, ARF, appy, cholecystitis, CVA, Diverticulitis, Homicidal, Suicidal, threat to staff... and all critical care pts) @ -Low risk at this time - Lab Data Lab Results 04/19/23 Range/Units 09:09 Urine Opiates Screen Not Detected (NotDetected) Ur Oxycodone Screen Not Detected (NotDetected) Urine Methadone Screen Not Detected (NotDetected) Ur Propoxyphene Screen Not Detected (NotDetected) Ur Barbiturates Screen Not Detected (NotDetected) U Tricyclic Antidepress Not Detected (NotDetected) Ur Phencyclidine Scrn Not Detected (NotDetected) Ur Amphetamines Screen Detected H (NotDetected) U Methamphetamines Scrn Detected H (NotDetected) U Benzodiazepines Scrn Not Detected (NotDetected) Urine Cocaine Screen Not Detected (NotDetected) U Marijuana (THC) Screen Detected H (NotDetected) Disposition Clinical Impression: Depression Disposition: HOME SELF-CARE Condition: Fair Instructions (If sedation given, give patient instructions): Depression (ED) Is patient prescribed a controlled substance at d/c from ED?: No Referrals: Lopez Marshall MD [Primary Care Provider] - 1-2 days Time of Disposition: 13:56
[2023-04-19 09:58] LABS: Amphetamine Screen,Urine Detected (NotDetected); Barbiturate Screen,Urine Not Detected (NotDetected); Benzodiazepines Screen,Urine Not Detected (NotDetected); Cocaine Screen,Urine Not Detected (NotDetected); Methadone Screen, Urine Not Detected (NotDetected); Opiate Screen,Urine Not Detected (NotDetected); Oxycodone Screen, Urine Not Detected (NotDetected); Phencyclidine Screen,Urine Not Detected (NotDetected); Tricyclic Antidepressant,Urine Not Detected (NotDetected); Urn Cannabinoid Scrn Detected (NotDetected)
[2023-04-19 22:25] VITALS: BP 127/75; PULSE 103; RESP 18
== END 2023-04-19 15:26 | disposition home or self-care (01) ==
LOC: EC 08:37
DX: F32.A Depression, unspecified (principal); Z59.00 Homelessness unspecified; F17.290 Nicotine dependence, other tobacco product, uncomplicated; F12.90 Cannabis use, unspecified, uncomplicated; Z88.0 Allergy status to penicillin
CPT/HCPCS: 80306; 82075; 99285

== ENCOUNTER 2023-07-27 11:46 | Emergency (ER) | payer OTHER ==
[2023-07-27 11:58] VITALS: TEMP 97.6
--- NOTE | 2023-07-27 12:37 | ED ---
General Adult HPI - General Source: patient, RN notes reviewed, old records reviewed Mode of arrival: ambulatory Limitations: no limitations <Roman Yousif - Last Filed: 07/27/23 14:16> <Andres Stewart - Last Filed: 07/29/23 23:04> - General Chief complaint: Psychiatric Symptoms Stated complaint: mental health Time Seen by Provider: 07/27/23 12:25 - History of Present Illness Initial comments: This is a 33-year-old female who presents emergency Department complaining that she has been having some suicidal ideations last night. Patient states she used to be on medication for PTSD but she stopped them a while ago and now she is back to using methamphetamine. Patient states she's methamphetamine yesterday and then last night she started having suicidal ideations and she is afraid she can overdose per patient states she would like to be evaluated. Patient denies any L Colles' patient denies any other drug use. Patient denies any physical complaints other than she's having heavier periods lately and she is currently on her period now she states her last period was about 3 weeks ago. Patient denies any fever chills. Patient denies any chest pain difficulty breathing first breath per patient denies any abdominal pain. Patient denies any dysuria hematuria urinary frequency. (Roman Yousif) - Related Data Home Medications Medication Instructions Recorded Confirmed Ibuprofen [Motrin] 600 mg PO DIRECTED PRN 04/19/23 04/19/23 Lidocaine 5% Patch [Lidoderm 5% 1 patch TOPICAL DIRECTED PRN 04/19/23 04/19/23 Patch] Allergies Allergy/AdvReac Type Severity Reaction Status Date / Time Penicillins Allergy Anaphylaxis Verified 07/27/23 11:57 Review of Systems ROS Other: All systems not noted in ROS Statement are negative. <Roman Yousif - Last Filed: 07/27/23 14:16> ROS Other: All systems not noted in ROS Statement are negative. <Andres Stewart - Last Filed: 07/29/23 23:04> ROS Statement: Those systems with pertinent positive or pertinent negative responses have been documented in the HPI. Past Medical History Past Medical History: No Reported History Additional Past Medical History / Comment(s): colitis History of Any Multi-Drug Resistant Organisms: None Reported, ESBL Date of last positivie culture/infection: 12/02/18 MDRO Source:: ESBL URINE Past Surgical History: Cholecystectomy, Tonsillectomy Past Anesthesia/Blood Transfusion Reactions: No Reported Reaction Past Psychological History: Depression, PTSD Smoking Status: Current every day smoker, Vaper Past Alcohol Use History: Occasional Past Drug Use History: Marijuana, Opiates - Past Family History Mother Family Medical History: No Reported History Additional Family Medical History / Comment(s): Mother with depression. <Roman Yousif - Last Filed: 07/27/23 14:16> General Exam Limitations: no limitations <Roman Yousif - Last Filed: 07/27/23 14:16> - General Exam Comments Initial Comments: GENERAL: Patient is well-developed and well-nourished. Patient is nontoxic and well-hydrated and is in no acute distress. ENT: Neck is soft and supple. No significant lymphadenopathy is noted. Oropharynx is clear. Moist mucous membranes. Neck has full range of motion without eliciting any pain. EYES: The sclera were anicteric and conjunctiva were pink and moist. Extraocular movements were intact and pupils were equal round and reactive to light. Eyelids were unremarkable. PULMONARY: Unlabored respirations. Good breath sounds bilaterally. No audible rales rhonchi or wheezing was noted. CARDIOVASCULAR: There is a regular rate and rhythm without any murmurs gallops or rubs. ABDOMEN: Soft and nontender with normal bowel sounds. SKIN: Skin is clear with no lesions or rashes and otherwise unremarkable. NEUROLOGIC: Patient is alert and oriented x3. Cranial nerves II through XII are grossly intact. Motor and sensory are also intact. Normal speech, volume and content. Symmetrical smile. MUSCULOSKELETAL: Normal extremities with adequate strength and full range of motion. No lower extremity swelling or edema. No calf tenderness. LYMPHATICS: No significant lymphadenopathy is noted PSYCHIATRIC: Patient states she's having suicidal ideations (Roman Yousif) Course Vital Signs 07/27/23 07/27/23 11:54 18:14 Temperature 97.6 F Pulse Rate 110 H 99 Respiratory 16 18 Rate Blood Pressure 112/59 90/54 O2 Sat by Pulse 95 98 Oximetry Medical Decision Making - Lab Data Result diagrams: 07/27/23 13:08 07/27/23 13:08 <Roman Yousif - Last Filed: 07/27/23 14:16> - Lab Data Result diagrams: 07/27/23 13:08 07/27/23 13:08 <Andres Stewart - Last Filed: 07/29/23 23:04> - Medical Decision Making Was pt. sent in by a medical professional or institution (, SENG, SPECIMEN TECHNICIAN, urgent care, hospital, or intermediate...) When possible be specific @ -[No] Did you speak to anyone other than the patient for history (EMS, parent, family, police, friend...)? What history was obtained from this source @ -[No] Did you review nursing and triage notes (agree or disagree)? Why? @ -[I reviewed and agree with nursing and triage notes] Were old charts reviewed (outside hosp., previous admission, EMS record, old EKG, old radiological studies, urgent care reports/EKG's, intermediate records)? Report findings @ -[No old charts were reviewed] Differential Diagnosis (chest pain, altered mental status, abdominal pain women, abdominal pain men, vaginal bleeding, weakness, fever, dyspnea, syncope, headache, dizziness, GI bleed, back pain, seizure, CVA, palpatations, mental health, musculoskeletal)? @ -Differential Mental Health Depression, anxiety, bipolar, psychosis, schizophrenia, borderline personality, situational depression, adjustment disorder, behavioral disorder, brain tumor, malingering, substance abuse, encephalopathy, medication reaction, dementia, hypothyroidism, degenerative neurologic disorder, lupus.... This is not meant to be all-inclusive list EKG interpreted by me (3pts min.). @ -[As above] X-rays interpreted by me (1pt min.). @ -[None done] CT interpreted by me (1pt min.). @ -[None done] U/S interpreted by me (1pt. min.). @ -[None done] What testing was considered but not performed or refused? (CT, X-rays, U/S, labs)? Why? @ -[None] What meds were considered but not given or refused? Why? @ -[None] Did you discuss the management of the patient with other professionals (professionals i.e. SENG Ryder, SPECIMEN TECHNICIAN, lab, RT, psych nurse, 7th grade social studies teacher, internet consultant, teacher, purchasing officer, case mgr)? Give summary @ -I spoke with the psychiatric nurse about this patient Was smoking cessation discussed for >3mins.? @ -[No] Was critical care preformed (if so, how long)? @ -[No] Were there social determinants of health that impacted care today? How? (Homelessness, low income, unemployed, alcoholism, drug addiction, tr ansportation, low edu. Level, literacy, decrease access to med. care, half-way, rehab)? @ -[No] Was there de-escalation of care discussed even if they declined (Discuss DNR or withdrawal of care, Hospice)? DNR status @ -[No] What co-morbidities impacted this encounter? (DM, HTN, Smoking, COPD, CAD, Cancer, CVA, ARF, Chemo, Hep., AIDS, mental health diagnosis, sleep apnea, morbid obesity)? @ -[None] Was patient admitted / discharged? Hospital course, mention meds given and route, prescriptions, significant lab abnormalities, going to OR and other pertinent info. @ -Psychiatric nursing team will evaluate the patient and will determine whether the patient needs to be admitted or can go home as an outpatient. Dr. Stewart will be taking over the care of this patient at 3 PM (Roman Yousif) Was patient admitted / discharged? Hospital course, mention meds given and route, prescriptions, significant lab abnormalities, going to OR and other pertinent info. @ -[This patient was a sign out pending the EPS evaluation. The patient was seen, case was discussed with psychiatry, and the patient now stable for continuing outpatient care. She is recanting any suicidal ideation. Undiagnosed new problem with uncertain prognosis? @ -[No] Drug Therapy requiring intensive monitoring for toxicity (Heparin, Nitro, Insulin, Cardizem)? @ -[No] Were any procedures done? @ -[No] Diagnosis/symptom? @ -[Acute on chronic substance abuse Mood disorder Acute, or Chronic, or Acute on Chronic? @ -[default] Uncomplicated (without systemic symptoms) or Complicated (systemic symptoms)? @ -[Uncomplicated Side effects of treatment? @ -[No] Exacerbation, Progression, or Severe Exacerbation? @ -[No] Poses a threat to life or bodily function? How? (Chest pain, [place], [place], pneumonia, PE, COPD, DKA, ARF, appy, cholecystitis, CVA, Diverticulitis, Homicidal, Suicidal, threat to staff... and all critical care pts) @ -[No] (Andres Stewart) - Lab Data Lab Results 07/27/23 07/27/23 07/27/23 Range/Units 13:08 13:08 13:14 WBC 11.5 H (3.8-10.6) k/uL RBC 4.82 (3.80-5.40) m/uL Hgb 14.4 (11.4-16.0) gm/dL Hct 44.0 (34.0-46.0) % MCV 91.3 (80.0-100.0) fL MCH 29.8 (25.0-35.0) pg MCHC 32.7 (31.0-37.0) g/dL RDW 12.5 (11.5-15.5) % Plt Count 305 (150-450) k/uL MPV 8.1 Neutrophils % 80 % Lymphocytes % 14 % Monocytes % 4 % Eosinophils % 0 % Basophils % 0 % Neutrophils # 9.2 H (1.3-7.7) k/uL Lymphocytes # 1.6 (1.0-4.8) k/uL Monocytes # 0.5 (0-1.0) k/uL Eosinophils # 0.0 (0-0.7) k/uL Basophils # 0.0 (0-0.2) k/uL Sodium 142 (137-145) mmol/L Potassium 4.2 (3.5-5.1) mmol/L Chloride 107 (98-107) mmol/L Carbon Dioxide 22 (22-30) mmol/L Anion Gap 13 mmol/L BUN 9 (7-17) mg/dL Creatinine 0.57 (0.52-1.04) mg/dL Est GFR (CKD-EPI)AfAm >90 (>60 ml/min/1.73 sqM) Est GFR (CKD-EPI)NonAf >90 (>60 ml/min/1.73 sqM) Glucose 84 (74-99) mg/dL Calcium 9.8 (8.4-10.2) mg/dL Total Bilirubin 0.7 (0.2-1.3) mg/dL AST 28 (14-36) U/L ALT 18 (4-34) U/L Alkaline Phosphatase 63 (38-126) U/L Total Protein 7.4 (6.3-8.2) g/dL Albumin 4.6 (3.5-5.0) g/dL Urine HCG, Qual Not Detected (Not Detectd) Urine Opiates Screen (NotDetected) Ur Oxycodone Screen (NotDetected) Urine Methadone Screen (NotDetected) Ur Propoxyphene Screen (NotDetected) Ur Barbiturates Screen (NotDetected) U Tricyclic Antidepress (NotDetected) Ur Phencyclidine Scrn (NotDetected) Ur Amphetamines Screen (NotDetected) U Methamphetamines Scrn (NotDetected) U Benzodiazepines Scrn (NotDetected) Urine Cocaine Screen (NotDetected) U Marijuana (THC) Screen (NotDetected) 07/27/23 Range/Units 13:14 WBC (3.8-10.6) k/uL RBC (3.80-5.40) m/uL Hgb (11.4-16.0) gm/dL Hct (34.0-46.0) % MCV (80.0-100.0) fL MCH (25.0-35.0) pg MCHC (31.0-37.0) g/dL RDW (11.5-15.5) % Plt Count (150-450) k/uL MPV Neutrophils % % Lymphocytes % % Monocytes % % Eosinophils % % Basophils % % Neutrophils # (1.3-7.7) k/uL Lymphocytes # (1.0-4.8) k/uL Monocytes # (0-1.0) k/uL Eosinophils # (0-0.7) k/uL Basophils # (0-0.2) k/uL Sodium (137-145) mmol/L Potassium (3.5-5.1) mmol/L Chloride (98-107) mmol/L Carbon Dioxide (22-30) mmol/L Anion Gap mmol/L BUN (7-17) mg/dL Creatinine (0.52-1.04) mg/dL Est GFR (CKD-EPI)AfAm (>60 ml/min/1.73 sqM) Est GFR (CKD-EPI)NonAf (>60 ml/min/1.73 sqM) Glucose (74-99) mg/dL Calcium (8.4-10.2) mg/dL Total Bilirubin (0.2-1.3) mg/dL AST (14-36) U/L ALT (4-34) U/L Alkaline Phosphatase (38-126) U/L Total Protein (6.3-8.2) g/dL Albumin (3.5-5.0) g/dL Urine HCG, Qual (Not Detectd) Urine Opiates Screen Not Detected (NotDetected) Ur Oxycodone Screen Not Detected (NotDetected) Urine Methadone Screen Not Detected (NotDetected) Ur Propoxyphene Screen Not Detected (NotDetected) Ur Barbiturates Screen Not Detected (NotDetected) U Tricyclic Antidepress Not Detected (NotDetected) Ur Phencyclidine Scrn Not Detected (NotDetected) Ur Amphetamines Screen Detected H (NotDetected) U Methamphetamines Scrn Detected H (NotDetected) U Benzodiazepines Scrn Not Detected (NotDetected) Urine Cocaine Screen Detected H (NotDetected) U Marijuana (THC) Screen Detected H (NotDetected) Disposition <Roman Yousif - Last Filed: 07/27/23 14:16> Is patient prescribed a controlled substance at d/c from ED?: No <Andres Stewart - Last Filed: 07/29/23 23:04> Clinical Impression: Mood disorder, Substance abuse Disposition: HOME SELF-CARE Condition: Good Instructions (If sedation given, give patient instructions): Mood Disorders (ED) Referrals: Lopez Marshall MD [Primary Care Provider] - 1-2 days
[2023-07-27 13:41] LABS: Basophils % (A) 0 %; Eosinophils % (A) 0 %; HGB 14.4 gm/dL (11.4-16.0); Lymphocytes # (A) 1.6 k/uL (1.0-4.8); Lymphocytes % (A) 14 %; MCH 29.8 pg (25.0-35.0); MCHC 32.7 g/dL (31.0-37.0); MCV 91.3 fL (80.0-100.0); Mean Platelet Volume 8.1; Monocytes # (A) 0.5 k/uL (0-1.0); Monocytes % (A) 4 %; Neutrophils # (A) 9.2 k/uL (1.3-7.7); Neutrophils % (A) 80 %; Platelet Count 305 k/uL (150-450); RBC 4.82 m/uL (3.80-5.40); RDW 12.5 % (11.5-15.5); WBC 11.5 k/uL (3.8-10.6)
[2023-07-27 13:59] LABS: ALT 18 U/L (4-34); AST 28 U/L (14-36); African American GFR (CKD) >90 (>60 ml/min/1.73 sqM); Albumin 4.6 g/dL (3.5-5.0); Alkaline Phosphatase 63 U/L (38-126); Anion Gap 13 mmol/L; Blood Urea Nitrogen 9 mg/dL (7-17); Calcium 9.8 mg/dL (8.4-10.2); Carbon Dioxide 22 mmol/L (22-30); Chloride 107 mmol/L (98-107); Glucose 84 mg/dL (74-99); Non-African American GFR(CKD) >90 (>60 ml/min/1.73 sqM); Potassium 4.2 mmol/L (3.5-5.1); Sodium 142 mmol/L (137-145); Total Bilirubin 0.7 mg/dL (0.2-1.3); Total Protein 7.4 g/dL (6.3-8.2)
[2023-07-27 14:23] LABS: Amphetamine Screen,Urine Detected (NotDetected); Barbiturate Screen,Urine Not Detected (NotDetected); Benzodiazepines Screen,Urine Not Detected (NotDetected); Cocaine Screen,Urine Detected (NotDetected); Methadone Screen, Urine Not Detected (NotDetected); Opiate Screen,Urine Not Detected (NotDetected); Oxycodone Screen, Urine Not Detected (NotDetected); Phencyclidine Screen,Urine Not Detected (NotDetected); Tricyclic Antidepressant,Urine Not Detected (NotDetected); Urn Cannabinoid Scrn Detected (NotDetected)
[2023-07-27 18:26] VITALS: BP 90/54; PULSE 99; RESP 18
== END 2023-07-27 18:14 | disposition home or self-care (01) ==
LOC: EC 11:46
DX: F39 Unspecified mood [affective] disorder (principal); F19.10 Other psychoactive substance abuse, uncomplicated; F17.290 Nicotine dependence, other tobacco product, uncomplicated; Z88.0 Allergy status to penicillin; Z90.49 Acquired absence of other specified parts of digestive tract; Z86.59 Personal history of other mental and behavioral disorders
CPT/HCPCS: 36415; 80053; 80306; 81025; 82075; 85025; 99284

== ENCOUNTER 2024-01-10 19:58 | Inpatient (IN) | payer MEDICAID, OTHER ==
[2024-01-10] MEDS: ZIPRASIDONE 20 MG VIAL IM STA (20:24)
--- NOTE | 2024-01-10 22:19 | ED ---
Psych HPI - General Chief Complaint: Psychiatric Symptoms Stated Complaint: Mental health Time Seen by Provider: 01/10/24 20:35 Source: police - History of Present Illness Initial Comments: 33-year-old female with past medical history of PTSD, methamphetamine abuse who presents emergency department with mental health evaluation. She is accompanied by police. Police found the patient walking down the street. She was yelling that people were going to kill her. Patient has very pressured and bizarre speech. Patient has episcopalian preoccupation. When I asked the patient where she was going tonight she replied "I was following a lady who was an tom and she was leading me to my children who are . She was leading me to my grandfather's house and he is ." Patient is petitioned by police. She denies to me any drug or alcohol use. Remainder of HPI is limited because of her current condition - Related Data Home Medications Medication Instructions Recorded Confirmed Gabapentin [Neurontin] 400 mg PO TID 01/11/24 01/11/24 Allergies Allergy/AdvReac Type Severity Reaction Status Date / Time Penicillins Allergy Anaphylaxis Verified 01/11/24 17:08 & Rash Review of Systems ROS Statement: Those systems with pertinent positive or pertinent negative responses have been documented in the HPI. ROS Other: All systems not noted in ROS Statement are negative. Past Medical History Past Medical History: No Reported History Additional Past Medical History / Comment(s): colitis History of Any Multi-Drug Resistant Organisms: None Reported, ESBL Date of last positivie culture/infection: 12/02/18 MDRO Source:: ESBL URINE Past Surgical History: Cholecystectomy, Tonsillectomy Past Anesthesia/Blood Transfusion Reactions: No Reported Reaction Past Psychological History: Depression, PTSD Smoking Status: Current every day smoker, Vaper Past Alcohol Use History: Occasional Past Drug Use History: Marijuana, Opiates - Past Family History Mother Family Medical History: No Reported History Additional Family Medical History / Comment(s): Mother with depression. General Exam Limitations: altered mental status General appearance: alert, other (Altered, eccentric, paranoid) Head exam: Present: atraumatic, normocephalic, normal inspection Eye exam: Present: normal appearance, PERRL, EOMI. Absent: scleral icterus, conjunctival injection, periorbital swelling ENT exam: Present: normal exam, mucous membranes moist Cardiovascular Exam: Present: tachycardia GI/Abdominal exam: Present: soft, normal bowel sounds. Absent: distended, tenderness, guarding, rebound, rigid Psychiatric exam: Present: agitated, manic Course Vital Signs 01/10/24 01/11/24 20:31 05:00 Temperature 98.5 F 97.6 F Pulse Rate 122 H 81 Respiratory 20 18 Rate Blood Pressure 180/101 96/70 O2 Sat by Pulse 97 94 L Oximetry Medical Decision Making - Medical Decision Making Was pt. sent in by a medical professional or institution (, PA, FIRER BISQUE KILN, urgent care, hospital, or longterm...) When possible be specific @ -Patient brought in by police Did you speak to anyone other than the patient for history (EMS, parent, family, police, friend...)? What history was obtained from this source @ -Spoke with police for history Did you review nursing and triage notes (agree or disagree)? Why? @ -I reviewed and agree with nursing and triage notes Were old charts reviewed (outside hosp., previous admission, EMS record, old EKG, old radiological studies, urgent care reports/EKG's, longterm records)? Report findings @ -I reviewed old ED visit from the patient where she was hospitalized with previous polysubstance abuse Differential Diagnosis (chest pain, altered mental status, abdominal pain women, abdominal pain men, vaginal bleeding, weakness, fever, dyspnea, syncope, headache, dizziness, GI bleed, back pain, seizure, CVA, palpatations, mental health, musculoskeletal)? @ -Differential Mental Health Depression, anxiety, bipolar, psychosis, schizophrenia, borderline personality, situational depression, adjustment disorder, behavioral disorder, brain tumor, malingering, substance abuse, encephalopathy, medication reaction, dementia, hypothyroidism, degenerative neurologic disorder, lupus.... This is not meant to be all-inclusive list EKG interpreted by me (3pts min.). @ -Not done X-rays interpreted by me (1pt min.). @ -None done CT interpreted by me (1pt min.). @ -None done U/S interpreted by me (1pt. min.). @ -None done What testing was considered but not performed or refused? (CT, X-rays, U/S, labs)? Why? @ -None What meds were considered but not given or refused? Why? @ -None Did you discuss the management of the patient with other professionals (professionals i.e. , PA, FIRER BISQUE KILN, lab, RT, psych nurse, social media marketer, patternmaker plaster and plastic, teacher, postal sorting officer, bilingual case manager)? Give summary @ -Spoke with the EPS nurse Was smoking cessation discussed for >3mins.? @ -No Was critical care preformed (if so, how long)? @ -No Were there social determinants of health that impacted care today? How? (Homelessness, low income, unemployed, alcoholism, drug addiction, transportation, low edu. Level, literacy, decrease access to med. care, shelter, rehab)? @ -No Was there de-escalation of care discussed even if they declined (Discuss DNR or withdrawal of care, Hospice)? DNR status @ -No What co-morbidities impacted this encounter? (DM, HTN, Smoking, COPD, CAD, Cancer, CVA, ARF, Chemo, Hep., AIDS, mental health diagnosis, sleep apnea, morbid obesity)? @ -Polysubstance abuse Was patient admitted / discharged? Hospital course, mention meds given and route, prescriptions, significant lab abnormalities, going to OR and other pertinent info. @ -Upon arrival patient was seen and evaluated in room 7. Thorough history and physical exam was performed. She does require sedation due to her manic behavior. Patient does provide urine sample. She is evaluated by EPS next day and requires admission. Patient does sign herself in. Patient taken to the floor in stable condition Undiagnosed new problem with uncertain prognosis? @ -Yes Drug Therapy requiring intensive monitoring for toxicity (Heparin, Nitro, Insulin, Cardizem)? @ -No Were any procedures done? @ -No Diagnosis/symptom? @ -Acute psychoses, acute manic behavior, paranoia, polysubstance abuse Acute, or Chronic, or Acute on Chronic? @ -Acute Uncomplicated (without systemic symptoms) or Complicated (systemic symptoms)? @ -Complicated Side effects of treatment? @ -No Exacerbation, Progression, or Severe Exacerbation? @ -No Poses a threat to life or bodily function? How? (Chest pain, [place], [place], pneumonia, PE, COPD, DKA, ARF, appy, cholecystitis, CVA, Diverticulitis, Homicidal, Suicidal, threat to staff... and all critical care pts) @ -No - Lab Data Result diagrams: 01/12/24 17:45 Lab Results 01/11/24 01/11/24 01/11/24 Range/Units 10:20 10:21 10:21 Urine Color Yellow Urine Appearance Cloudy H (Clear) Urine pH 6.0 (5.0-8.0) Ur Specific [place] 1.030 (1.001-1.035) Urine Protein 1+ H (Negative) Urine Glucose (UA) Negative (Negative) Urine Ketones 1+ H (Negative) Urine Blood Large H (Negative) Urine Nitrite Negative (Negative) Urine Bilirubin Negative (Negative) Urine Urobilinogen 2.0 (<2.0) mg/dL Ur Leukocyte Esterase Large H (Negative) Urine RBC >182 H (0-5) /hpf Urine WBC >182 H (0-5) /hpf Ur Squamous Epith Cells 7 H (0-4) /hpf Urine Bacteria Many H (None) /hpf Urine Mucus Many H (None) /hpf Urine HCG, Qual Not Detected (Not Detectd) Urine Opiates Screen Not Detected (NotDetected) Ur Oxycodone Screen Not Detected (NotDetected) Urine Methadone Screen Not Detected (NotDetected) Ur Barbiturates Screen Not Detected (NotDetected) U Tricyclic Antidepress Not Detected (NotDetected) Ur Phencyclidine Scrn Not Detected (NotDetected) Ur Amphetamines Screen Detected H (NotDetected) U Methamphetamines Scrn Detected H (NotDetected) U Benzodiazepines Scrn Detected H (NotDetected) Urine Cocaine Screen Detected H (NotDetected) U Marijuana (THC) Screen Detected H (NotDetected) SARS-CoV-2 (PCR) (Not Detectd) 01/11/24 Range/Units 17:21 Urine Color Urine Appearance (Clear) Urine pH (5.0-8.0) Ur Specific [place] (1.001-1.035) Urine Protein (Negative) Urine Glucose (UA) (Negative) Urine Ketones (Negative) Urine Blood (Negative) Urine Nitrite (Negative) Urine Bilirubin (Negative) Urine Urobilinogen (<2.0) mg/dL Ur Leukocyte Esterase (Negative) Urine RBC (0-5) /hpf Urine WBC (0-5) /hpf Ur Squamous Epith Cells (0-4) /hpf Urine Bacteria (None) /hpf Urine Mucus (None) /hpf Urine HCG, Qual (Not Detectd) Urine Opiates Screen (NotDetected) Ur Oxycodone Screen (NotDetected) Urine Methadone Screen (NotDetected) Ur Barbiturates Screen (NotDetected) U Tricyclic Antidepress (NotDetected) Ur Phencyclidine Scrn (NotDetected) Ur Amphetamines Screen (NotDetected) U Methamphetamines Scrn (NotDetected) U Benzodiazepines Scrn (NotDetected) Urine Cocaine Screen (NotDetected) U Marijuana (THC) Screen (NotDetected) SARS-CoV-2 (PCR) Not Detected (Not Detectd) Disposition Clinical Impression: Depression, Psychosis Disposition: TRANSFER TO PSYCH HOSP/UNIT Condition: Stable Is patient prescribed a controlled substance at d/c from ED?: No Time of Disposition: 17:19
[2024-01-11] MEDS: IBUPROFEN 600 MG TAB PO STA ×2 (11:35→17:19)
[2024-01-11 11:53] LABS: Amphetamine Screen,Urine Detected (NotDetected); Barbiturate Screen,Urine Not Detected (NotDetected); Benzodiazepines Screen,Urine Detected (NotDetected); Cocaine Screen,Urine Detected (NotDetected); Methadone Screen, Urine Not Detected (NotDetected); Opiate Screen,Urine Not Detected (NotDetected); Oxycodone Screen, Urine Not Detected (NotDetected); Phencyclidine Screen,Urine Not Detected (NotDetected); Tricyclic Antidepressant,Urine Not Detected (NotDetected); Urn Cannabinoid Scrn Detected (NotDetected)
[2024-01-11] MEDS ORDERED: LORazepam 2 MG/ML INJ IM PRN (18:58)
[2024-01-11] MEDS ORDERED: MAGNESIUM HYDROXIDE 2,400 MG/30 ML CUP PO PRN (18:58)
[2024-01-11] MEDS ORDERED: HALOPERIDOL LACTATE 5 MG/ML 1 ML VIAL IM PRN (18:58)
[2024-01-11] MEDS ORDERED: MAG HYDROX/AL HYDROX/SIMETH 355 ML BOTTLE PO PRN (18:58)
[2024-01-11 19:29] LABS: Appearance,Urine Cloudy (Clear); Bacteria,Urine Many /hpf; Bilirubin,Urine Negative (Negative); Blood,Urine Large (Negative); Color,Urine Yellow; Glucose,Urine (UA) Negative (Negative); Ketones,Urine 1+ (Negative); Leukocyte Esterase,Urine Large (Negative); Mucus,Urine Many /hpf; Nitrite,Urine Negative (Negative); Protein,Urine 1+ (Negative); RBC,Urine >182 /hpf (0-5); Squamous Epithelial Cell,Urine 7 /hpf (0-4); WBC,Urine >182 /hpf (0-5)
[2024-01-11] MEDS: diphenhydrAMINE 50 MG CAP PO STA (20:01)
[2024-01-11] MEDS: ACETAMINOPHEN TAB 325 MG TAB PO PRN (20:01)
[2024-01-11] MEDS: LORazepam 1 MG TAB PO PRN (21:27)
[2024-01-11] MEDS: haloperidoL 5 MG TAB PO PRN (21:27)
[2024-01-12] MEDS: NICOTINE 14MG/24HR PATCH TRANSDERM SCH (08:55)
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
[2024-01-12 18:20] LABS: ALT 17 U/L (4-34); AST 30 U/L (14-36); African American GFR (CKD) >90 (>60 ml/min/1.73 sqM); Albumin 3.2 g/dL (3.5-5.0); Alkaline Phosphatase 53 U/L (38-126); Anion Gap 0 mmol/L; Bilirubin, Delta 0.2 mg/dL (0.0-0.2); Blood Urea Nitrogen 15 mg/dL (7-17); Calcium 8.5 mg/dL (8.4-10.2); Carbon Dioxide 30 mmol/L (22-30); Chloride 107 mmol/L (98-107); Glucose 100 mg/dL (74-99); Non-African American GFR(CKD) >90 (>60 ml/min/1.73 sqM); Potassium 3.7 mmol/L (3.5-5.1); Sodium 137 mmol/L (137-145); Total Bilirubin 0.2 mg/dL (0.2-1.3); Total Protein 5.3 g/dL (6.3-8.2)
[2024-01-12] MEDS: traZODone HCL 100 MG TAB PO PRN (21:26)
[2024-01-12 22:38] LABS: Chol/HDL Ratio 3.49 Ratio; LDL Cholesterol,Calculated 75.3 mg/dL (0.0-131.0)
--- NOTE | 2024-01-13 11:54 | P.PN ---
Progress Note - Text Progress Note Date: 01/13/24 Interval History: Patient was seen in her room and was directable and agreeable to speak with wr iter at the bedside. Patient claims she "just don't know" how she is feeling. Patient seems focused on Klonopin and other controlled medications. Cold Storage Supervisor told patient she would not be getting that during her admission. Patient states that she slept well last night. Patients thoughts are very disorganized. poor hygiene and grooming/ Cold Storage Supervisor spoke with patient about attending rehab upon discharge, patient refused. Stated she needs to get home to go to work, but also states she is homeless. Patient is Patient offered no complaints. claims that she is feeling depressed and anxiousAt this time patient denies any suicidal or homicidal ideations, intent or plan. Patient denies any auditory, visual hallucinations and denies any paranoia or delusions. Patient denies any side effects from the medications and has been compliant with meds. Mental Status Exam: General Appearance: Patient appears to be older than stated age, disheveled, directable, and mildly cooperative. Behavior: Patient is laying in bed without any agitated behavior. evasive, med seeking. Speech: Patient's speech is fluent and nonpressured. Mood/Affect: Mood is "I just don't know, not good", affect is congruent and constricted. Suicidality/Homicidality: Patient denies having any suicidal or homicidal ideation intent or plan. Perceptions: Patient denies any visual hallucinations and denies any auditory hallucinations Though content/process: [There is no evidence of any delusional thought content and thought process disorganized. Memory and concentration: AOX3, grossly intact for the purposes of this session Judgment and insight: poor Assessment psychosis unspecified depressive disorder, unspecified methamphetamine use disorder benzodiazipine use disorder cannabis use disorder cocaine use disorder nicotine dependance Plan: -Patient continues to meet criteria for inpatient psychiatric admission for symptom stabilization and safety. Patient has signed adult voluntary form and medication consent and was placed in patient's chart. -Medications: Lexapro 10mg daily for depression/anxiety starting tomorrow, give 5mg now. Trazodone 100mg qhs prn for sleep. -When necessary Ativan and Haldol for agitation/aggression. -NRT - nicotine patch -SW on board for discharge planning. Encouraged the patient to participate in milieu. Offered patient rehab, patient refused.
[2024-01-13] MEDS: ESCITALOPRAM 5 MG TAB PO STA (12:42)
--- NOTE | 2024-01-13 17:42 | P.MDCNMH ---
History of Present Illness H&P Date: 01/13/24 Chief Complaint: medical evaluation 33-year-old woman with a medical history of colitis, opiate abuse presented for mental health evaluation. Medicine was consulted for medical evaluation as well as management. Patient has no complaints at this time, denies abdominal pain, fevers, chills, nausea, vomiting, diarrhea. Denies history of hypertension, hyperlipidemia, diabetes, heart disease, stroke. Patient's vital signs today have been afebrile, 87/52, heart rate 73, 99% on room air. CBC from 01/11 was reviewed and demonstrates no acute findings. Lipid panel demonstrates elevated triglycerides, LDL 75.3. UA was contaminated. Urine tox cream was positive for amphetamines, methamphetamines, benzos, cocaine, marijuana. COVID is negative. All Systems reviewed and pertinent positives and negatives noted in HPI, all other symptoms are negative Gen: In NAD, non-toxic HEENT: normocephalic, atraumatic, hearing acuity is intant, mucous membranes moist CVS: perfusing all extremities well, no pitting edema, Respiratory: symmetric chest expansion, no accessory muscle use, GI: soft, NTTP, ND, : no suprapubic tenderness, no CVA tenderness MSK/Derm: no rashes, cyanosis Neuro: CN II-XII intact, no motor weakness, Psych: cooperative, euthymic mood, judgment and insight is intact Labs and imaging as above Assessment/plan: Hypotension -borderline, but patient is asymptomatic, encourage fluid intake. Hx of Optiate abuse -outpatient methadone clinic referral Polysubstance abuse -care per primary team Pt is full code Past Medical History Past Medical History: No Reported History Additional Past Medical History / Comment(s): colitis History of Any Multi-Drug Resistant Organisms: None Reported, ESBL Date of last positivie culture/infection: 12/02/18 MDRO Source:: ESBL URINE Past Surgical History: Cholecystectomy, Tonsillectomy Past Anesthesia/Blood Transfusion Reactions: No Reported Reaction Smoking Status: Current every day smoker, Vaper - Past Family History Mother Family Medical History: No Reported History Additional Family Medical History / Comment(s): Mother with depression. Medications and Allergies Home Medications Medication Instructions Recorded Confirmed Type Gabapentin [Neurontin] 400 mg PO TID 01/11/24 01/11/24 History Allergies Allergy/AdvReac Type Severity Reaction Status Date / Time Penicillins Allergy Anaphylaxis Verified 01/11/24 17:08 & Rash Physical Exam Osteopathic Statement: *. No significant issues noted on an osteopathic structural exam other than those noted in the History and Physical/Consult. Vitals: Vital Signs Temp Pulse Pulse Pulse Resp BP BP 01/13/24 12:40 99 96/53 01/13/24 11:10 73 81/47 01/13/24 06:41 97.8 F 73 16 87/52 Cranial Nerve Examination - Cranial Nerves Cranial Nerve II- Optic: Intact Cranial Nerve III- Oculomotor: Intact Cranial Nerve IV- Trochlear: Intact Cranial Nerve V- Trigeminal: Intact Cranial Nerve - Abducens: Intact Cranial Nerve VII- Facial: Intact Cranial Nerve VIII- Auditory: Intact Cranial Nerve IX- Glossopharyngeal: Intact Cranial Nerve X- Vagus: Intact Cranial Nerve XI- Accessory: Intact Cranial Nerve XII- Hypoglossal: Intact Results CBC & Chem 7: 01/12/24 17:45 Labs: Abnormal Lab Results - Last 24 Hours (Table) 01/12/24 Range/Units 17:45 Glucose 100 H (74-99) mg/dL Total Protein 5.3 L (6.3-8.2) g/dL Albumin 3.2 L (3.5-5.0) g/dL Triglycerides 155.00 H (0.00-149.00) mg/dL
[2024-01-14] MEDS: ESCITALOPRAM 10 MG TAB PO SCH (08:35)
--- NOTE | 2024-01-14 10:03 | P.PN ---
Progress Note - Text Progress Note Date: 01/14/24 Interval History: Patient was seen in her room and was directable and agreeable to speak with wr iter at the bedside. Patient claims she is "fine". Patient is secluding herself to her room, and only going out of her room for meals. Sock Drier encouraged patient to attend some groups, patient stated she would try, but they just "aren't for me". Patient stated that she slept well last night. She claims her anxiety is improving, but her mood is about the same. Patient offered no complaints. At thi s time patient denies any suicidal or homicidal ideations, intent or plan. Patient denies any auditory, visual hallucinations and denies any paranoia or delusions. Patient denies any side effects from the medications and has been compliant with meds. Mental Status Exam: General Appearance: Patient appears to be older than stated age, disheveled, directable, and mildly cooperative. Behavior: Patient is laying in bed without any agitated behavior. evasive, improving mildly Speech: Patient's speech is fluent and nonpressured. Mood/Affect: Mood is "the same", affect is congruent and constricted. improivng mildly Suicidality/Homicidality: Patient denies having any suicidal or homicidal ideation intent or plan. Perceptions: Patient denies any visual hallucinations and denies any auditory h allucinations Though content/process: There is no evidence of any delusional thought content and thought process disorganized. Memory and concentration: AOX3, grossly intact for the purposes of this session Judgment and insight: poor, improving mildly Assessment: psychosis unspecified depressive disorder, unspecified methamphetamine use disorder benzodiazipine use disorder cannabis use disorder cocaine use disorder nicotine dependance Plan: -Patient continues to meet criteria for inpatient psychiatric admission for symptom stabilization and safety. Patient has signed adult voluntary form and medication consent and was placed in patient's chart. -Medications: increase Lexapro 15mg daily for depression/anxiety. decrease Trazodone 50mg qhs for sleep/mood -When necessary Ativan and Haldol for agitation/aggression. -NRT - nicotine patch -SW on board for discharge planning. Encouraged the patient to participate in milieu. Offered patient rehab, patient refused. Possible discharge Saturday, once patient clears and improves psychiatrically. patient claims that she wants to go back boyfriends house in [place].
[2024-01-14] MEDS ORDERED: LORazepam 2 MG/ML INJ IM PRN (16:06)
[2024-01-14] MEDS: traZODone HCL 50 MG TAB PO SCH (20:04)
[2024-01-14] MEDS: LORazepam 1 MG TAB PO PRN (23:55)
[2024-01-15] MEDS: ESCITALOPRAM 5 MG TAB PO SCH (09:06)
--- NOTE | 2024-01-15 10:12 | P.PN ---
Progress Note - Text Progress Note Date: 01/15/24 Interval History: Patient was seen in her room and was directable and agreeable to speak with wr iter at the bedside. Patient claims she is "fine". Patient is secluding herself to her room, and only going out of her room for meals. Director Visual encouraged patient to attend some groups, patient not agreeable to do so. Patient stated that she slept well last night, and that she is sleeping "too much". She is laying in bed covering her face with a blanket, and stated she just wants to go. She claims her anxiety is improving, but her mood is about the same. States she got brought here because she was walking down the street praying. Patient offered no complaints. At this time patient denies any suicidal or homicidal ideations, intent or plan. Patient denies any auditory, visual hallucinations and denies any paranoia or delusions. Patient denies any side effects from the medications and has been compliant with meds. Mental Status Exam: General Appearance: Patient appears to be older than stated age, disheveled, directable, and mildly cooperative. Behavior: Patient is laying in bed without any agitated behavior. evasive, improving mildly Speech: Patient's speech is fluent and nonpressured. concrete. Mood/Affect: Mood is "fine", affect is congruent and constricted. improving mildly Suicidality/Homicidality: Patient denies having any suicidal or homicidal ideation intent or plan. Perceptions: Patient denies any visual hallucinations and denies any auditory hallucinations Though content/process: There is no evidence of any delusional thought content and thought process mildly more clear today, concrete. Memory and concentration: AOX3, grossly intact for the purposes of this session Judgment and insight: poor, improving mildly Assessment: psychosis unspecified depressive disorder, unspecified methamphetamine use disorder benzodiazipine use disorder cannabis use disorder cocaine use disorder nicotine dependance Plan: -Patient continues to meet criteria for inpatient psychiatric admission for symptom stabilization and safety. Patient has signed adult voluntary form and medication consent and was placed in patient's chart. -Medications: decrease Lexapro 10mg qhs for depression/anxiety. change Trazodone 50mg qhs PRN for sleep/mood -When necessary Ativan and Haldol for agitation/aggression. -NRT - nicotine patch -SW on board for discharge planning. Encouraged the patient to participate in milieu. Offered patient rehab, patient refused. Possible discharge Saturday, once patient clears and improves psychiatrically. patient claims that she wants to go back boyfriends house in [place].
[2024-01-15] MEDS: LORazepam 0.5 MG TAB PO PRN (12:37)
[2024-01-15] MEDS: traZODone HCL 50 MG TAB PO PRN (20:28)
[2024-01-15] MEDS: ESCITALOPRAM 10 MG TAB PO SCH (20:58)
--- NOTE | 2024-01-16 10:19 | P.PN ---
Progress Note - Text Progress Note Date: 01/16/24 Interval History: Patient was seen in her room and was directable and agreeable to speak with wr iter at the bedside. Patient claims she is "well". Patient continues to seclude herself to her room, and only going out of her room for meals. Auditor Appraiser continues to encourage patient to attend some groups, patient not agreeable to do so. Patient refused meds last night and this morning, stating she does not need them, and that the only medication that works for her is xanax and adderal. she states that "all the other meds wont help me" despite video game script writer attempting several times to ask her if she would like to be on a different antidepressant. Patient then became irritable, and said, "you order drugs that don't work, but won't give me the meds that do work". continues to have little interest in participating in groups. At this time patient denies any suicidal or homicidal ideations, intent or plan. Patient denies any auditory, visual hallucinations and denies any paranoia or delusions. Mental Status Exam: General Appearance: Patient appears to be older than stated age, disheveled, directable, and mildly cooperative. Behavior: Patient is laying in bed without any agitated behavior. evasive, improving mildly Speech: Patient's speech is fluent and nonpressured. concrete. Mood/Affect: Mood is "ok", affect is congruent and constricted. Suicidality/Homicidality: Patient denies having any suicidal or homicidal ideation intent or plan. Perceptions: Patient denies any visual hallucinations and denies any auditory hallucinations Though content/process: There is no evidence of any delusional thought content and thought process mildly more clear today, concrete. medication seeking. Memory and concentration: AOX3, grossly intact for the purposes of this session Judgment and insight: poor, improving mildly Assessment: psychosis unspecified depressive disorder, unspecified methamphetamine use disorder benzodiazipine use disorder cannabis use disorder cocaine use disorder nicotine dependance personality disorder NOS Plan: -Patient continues to meet criteria for inpatient psychiatric admission for symptom stabilization and safety. Patient has signed adult voluntary form and medication consent and was placed in patient's chart. -Medications: Lexapro 10mg qhs for depression/anxiety. Trazodone 50mg qhs PRN for sleep/mood. Patient refusing PO meds, continues to be seeking ativan and controlled meds. -When necessary vistaril and Haldol for agitation/aggression. -NRT - nicotine patch -SW on board for discharge planning. Encouraged the patient to participate in milieu. Offered patient rehab, patient refused. Patient signed AMA and will be due on 01/16 for decision. Likely discharge Saturday, once patient clears and improves psychiatrically. patient claims that she wants to go back boyfriends house in [place].
[2024-01-16] MEDS: hydrOXYzine pamoate 25 MG CAP PO PRN (15:46)
[2024-01-17 07:23] VITALS: BP 120/70; PULSE 74; RESP 20; TEMP 98.7
--- NOTE | 2024-01-17 09:55 | P.DS ---
Providers Date of admission: 01/11/24 18:46 Expected date of discharge: 01/17/24 Attending physician: Romero Chowdhury MD Consults: 01/11/24 18:58 Consult Physician Routine Consulting Provider: Yaneth Physician Consult Reason/Comments: Medical H&P Do you want consulting provider notified?: Yes Primary care physician: Stated None - Discharge Diagnosis(es) (1) Unspecified psychosis Current Visit: Yes Status: Acute Priority: High (2) Depressive disorder Current Visit: Yes Status: Acute Priority: High (3) Personality disorder, unspecified Current Visit: Yes Status: Acute Priority: Medium (4) Methamphetamine use disorder, moderate Current Visit: Yes Status: Acute Priority: High (5) Moderate benzodiazepine use disorder Current Visit: Yes Status: Acute Priority: Medium (6) Cannabis use disorder Current Visit: Yes Status: Acute Priority: Medium (7) Cocaine use disorder Current Visit: Yes Status: Acute Priority: Medium (8) Nicotine dependence Current Visit: Yes Status: Acute Priority: Low Hospital Course: Admission HPI: Admission note was completed by Dr Conn "33-year-old female with past medical history of PTSD, methamphetamine abuse who presents emergency department with [facility] evaluation. She is accompanied by police. Police found the patient walking down the street. She was yelling that people were going to kill her. Patient has very pressured and bizarre speech. Patient has catholic preoccupation. When I asked the patient where she was going tonight she replied "I was following a lady who was an tom and she was leading me to my children who are . She was leading me to my grandfather's house and he is ." Patient is petitioned by police. She denies to me any drug or alcohol use. The patient seems to sense spirit beings all around her they are dark shadows and 1 light shadow. She believes that there is some spirit that wants to own her but ruin her life. She believes that every time her life starts to do fairly well with a new boyfriend new job laced his stay this spirit being enters the boyfriend and makes him get enraged over nothing and ruined the whole situation. She also believes that the spirit of her daughter has been displaced. She saw a shadow that was light-colored compared to the usual shadows that she sees. She decided that this light-colored shadow was actually her daughter and that some negative being had displaced that from living in her daughter. She worries that her food is been poisoned does not want to eat." Hospital course: Upon admission to the unit patient was directable and agreeable to commence treatment and signed adult voluntary form. Patient ended up signing an AMA form during her hospitalization which was up for review on 01/16, day of discharge. Patient was fairly isolative during her hospitalization, mainly kept herself in her room did not attend many groups. She showed little interest in her treatment. Got along well with other patients on the unit and followed unit protocol. Patient was mostly compliant with the medications and denied any side effects throughout hospital course. Patient was started on Lexapro 10 mg nightly for mood/anxiety, trazodone 50 mg nightly as needed for sleep, patient's Xanax and Adderall were held, patient was fairly med seeking for benzodiazepines throughout her hospitalization. Patient was also seen by medical team for history and physical exam. Throughout the course of the hospitalization patient gradually improved with regards to mood, anxiety, psychosis/delusions and paranoia, sleep and returned back to their baseline level of functioning. On the day of discharge patient denied any suicidal or homicidal ideations intent or plan denied any auditory or visual hallucinations. Patient endorsed wanting to live for her health her kids and her future. The patient denied any access to guns or weapons. Patient denied any paranoia and did not endorse any delusions. Patient does have a significant history of substance abuse and was counseled on abstaining from all substances including alcohol and marijuana. Patient was offered however declined inpatient substance-abuse rehab. Patient was also counseled on the medications and need for regular compliance and was encouraged to follow-up with their outpatient appointment for mental health and also for primary care. telephone sex worker will help patient with discharge today back to her boyfriend's place in [place]. We will also provide care home information in [place] if patient desires. Mental status exam: General Appearance: Patient appears to be thin, mildly disheveled appearance, stated age is alert, pleasant, and cooperative. Patient is in no acute distress and has improved hygiene and grooming Behavior: Patient is calmly seated without any agitated behavior. Speech: Patient's speech is fluent and nonpressured. Fairly concrete Mood/Affect: Patient reports their mood is "ok", affect is congruent Suicidality/Homicidality: Patient denies having any suicidal or homicidal ideation intent or plan. Perceptions: Patient denies any auditory or visual hallucinations. Though content/process: There is no evidence of any delusional thought content and thought process is linear and goal-directed. [place] Memory and concentration: AOX3, grossly intact for the purposes of this session. Can spell "WORLD" backwards correctly. Judgment and insight: Chronically poor, however has improved with guarded prognosis Impression: psychosis unspecified depressive disorder, unspecified methamphetamine use disorder benzodiazipine use disorder cannabis use disorder cocaine use disorder nicotine dependance personality disorder NOS Plan: -Continue with discharge today as patient has improved and stabilized psychiatrically and is not currently an imminent threat to herself and/or others. Patient will remain at chronically elevated risk for harm to self and/or others due to her impulsivity and polysubstance abuse. -Continue medications: Lexapro 10 mg nightly for depression/anxiety, trazodone 50 mg nightly as needed for sleep, Vistaril daily as needed for anxiety. -Patient was counseled on the need for medication compliance and appropriate follow-up at mental health and also primary care for medical issues. Patient verbalized understanding and agreed. -Social work to help coordinate patient's discharge today back to [place] to her boyfriend's place, she will also be given care home information if needed. Social work also to arrange for patients follow up appointments for psychiatric care along with follow up with primary care provider. -Patient counseled on abstaining from recreational drugs and marijuana and alcohol. Was informed/educated on the adverse effects on their physical and mental health. Patient verbally agreed and understood. Patient was offered substance abuse treatment however declined at this time. -Patient was instructed to return to the hospital or seek immediate medical care if their psychiatric or medical symptoms do worsen or reoccur. Allergies Allergy/AdvReac Type Severity Reaction Status Date / Time Penicillins Allergy Anaphylaxis Verified 01/11/24 17:08 & Rash Laboratory Results Sodium 137 mmol/L (137-145) 01/12/24 17:45 Potassium 3.7 mmol/L (3.5-5.1) 01/12/24 17:45 Chloride 107 mmol/L (98-107) 01/12/24 17:45 Carbon Dioxide 30 mmol/L (22-30) 01/12/24 17:45 Anion Gap 0 mmol/L 01/12/24 17:45 BUN 15 mg/dL (7-17) 01/12/24 17:45 Creatinine 0.65 mg/dL (0.52-1.04) 01/12/24 17:45 Est GFR (CKD-EPI)AfAm >90 (>60 ml/min/1.73 sqM) 01/12/24 17:45 Est GFR (CKD-EPI)NonAf >90 (>60 ml/min/1.73 sqM) 01/12/24 17:45 Glucose 100 mg/dL (74-99) H 01/12/24 17:[address] Glu mg/dL 114 mg/dL 01/12/24 17:45 Hemoglobin A1c 5.6 % (<=6.0) 01/12/24 17:45 Calcium 8.5 mg/dL (8.4-10.2) 01/12/24 17:45 Total Bilirubin 0.2 mg/dL (0.2-1.3) 01/12/24 17:45 Conjugated Bilirubin 0.0 mg/dL (0.0-0.3) 01/12/24 17:45 Unconjugated Bilirubin 0.0 mg/dL (0.0-1.1) 01/12/24 17:45 Delta Bilirubin 0.2 mg/dL (0.0-0.2) 01/12/24 17:45 AST 30 U/L (14-36) 01/12/24 17:45 ALT 17 U/L (4-34) 01/12/24 17:45 Alkaline Phosphatase 53 U/L (38-126) 01/12/24 17:45 Total Protein 5.3 g/dL (6.3-8.2) L 01/12/24 17:45 Albumin 3.2 g/dL (3.5-5.0) L 01/12/24 17:45 Triglycerides 155.00 mg/dL (0.00-149.00) H 01/12/24 17:45 Cholesterol 149.00 mg/dL (0.00-200.00) 01/12/24 17:45 LDL Cholesterol, Calc 75.3 mg/dL (0.0-131.0) 01/12/24 17:45 VLDL Cholesterol, Calc 31.00 mg/dL (5.00-40.00) 01/12/24 17:45 HDL Cholesterol 42.70 mg/dL (40.00-60.00) 01/12/24 17:45 Cholesterol/HDL Ratio 3.49 Ratio 01/12/24 17:45 TSH 1.900 mIU/L (0.465-4.680) 01/12/24 17:45 Urine Color Yellow 01/11/24 10:20 Urine Appearance Cloudy (Clear) H 01/11/24 10:20 Urine pH 6.0 (5.0-8.0) 01/11/24 10:20 Ur Specific [place] 1.030 (1.001-1.035) 01/11/24 10:20 Urine Protein 1+ (Negative) H 01/11/24 10:20 Urine Glucose (UA) Negative (Negative) 01/11/24 10:20 Urine Ketones 1+ (Negative) H 01/11/24 10:20 Urine Blood Large (Negative) H 01/11/24 10:20 Urine Nitrite Negative (Negative) 01/11/24 10:20 Urine Bilirubin Negative (Negative) 01/11/24 10:20 Urine Urobilinogen 2.0 mg/dL (<2.0) 01/11/24 10:20 Ur Leukocyte Esterase Large (Negative) H 01/11/24 10:20 Urine RBC >182 /hpf (0-5) H 01/11/24 10:20 Urine WBC >182 /hpf (0-5) H 01/11/24 10:20 Ur Squamous Epith Cells 7 /hpf (0-4) H 01/11/24 10:20 Urine Bacteria Many /hpf (None) H 01/11/24 10:20 Urine Mucus Many /hpf (None) H 01/11/24 10:20 Urine HCG, Qual Not Detected (Not Detectd) 01/11/24 10:21 Urine Opiates Screen Not Detected (NotDetected) 01/11/24 10:21 Ur Oxycodone Screen Not Detected (NotDetected) 01/11/24 10:21 Urine Methadone Screen Not Detected (NotDetected) 01/11/24 10:21 Ur Barbiturates Screen Not Detected (NotDetected) 01/11/24 10:21 U Tricyclic Antidepress Not Detected (NotDetected) 01/11/24 10:21 Ur Phencyclidine Scrn Not Detected (NotDetected) 01/11/24 10:21 Ur Amphetamines Screen Detected (NotDetected) H 01/11/24 10:21 U Methamphetamines Scrn Detected (NotDetected) H 01/11/24 10:21 U Benzodiazepines Scrn Detected (NotDetected) H 01/11/24 10:21 Urine Cocaine Screen Detected (NotDetected) H 01/11/24 10:21 U Marijuana (THC) Screen Detected (NotDetected) H 01/11/24 10:21 SARS-CoV-2 (PCR) Not Detected (Not Detectd) 01/11/24 17:21 Vital Signs Temp 98.7 F 01/17/24 07:21 Pulse 74 01/17/24 07:21 Resp 20 01/17/24 07:21 BP 120/70 01/17/24 07:21 Pulse Ox 97 01/17/24 07:21 FiO2 Patient Condition at Discharge: Stable Plan - Discharge Summary Discharge Rx Participant: Yes New Discharge Prescriptions: New traZODone HCL [Desyrel] 50 mg PO HS PRN 14 Days #14 tab PRN Reason: Insomnia Nicotine 14Mg/24Hr Patch [Habitrol] 1 patch TRANSDERM DAILY 14 Days #14 patch Escitalopram [Lexapro] 10 mg PO HS 14 Days #14 tab hydrOXYzine pamoate [Vistaril] 50 mg PO DAILY PRN 14 Days #28 cap PRN Reason: Anxiety Discontinued Gabapentin [Neurontin] 400 mg PO TID Discharge Medication List Escitalopram [Lexapro] 10 mg PO HS 14 Days #14 tab 01/17/24 [Rx] Nicotine 14Mg/24Hr Patch [Habitrol] 1 patch TRANSDERM DAILY 14 Days #14 patch 01/17/24 [Rx] hydrOXYzine pamoate [Vistaril] 50 mg PO DAILY PRN 14 Days #28 cap 01/17/24 [Rx] traZODone HCL [Desyrel] 50 mg PO HS PRN 14 Days #14 tab 01/17/24 [Rx] Follow up Appointment(s)/Referral(s): None,Stated [Primary Care Provider] - 1-2 days Activity/Diet/Wound Care/Special Instructions: Avoid the use of street drugs and alcohol. Take all medications as prescribed. When you are in need of refills on your medications, please contact your medical provider and/or outpatient psychiatrist/provider to have this done. Please go to your scheduled outpatient appointment for aftercare treatment. If symptoms return or become worse, call the crisis line at and/or go to the nearest emergency room for evaluation. National Suicide Hotline 104 Discharge Disposition: HOME SELF-CARE
== END 2024-01-17 14:05 | disposition home or self-care (01) | DRG 751 ==
LOC: EC 19:58 → 3MHU 01-11 18:46
PROVIDERS: ADMIT Psychiatry & Neurology Psychiatry; ATTEND Psychiatry & Neurology Psychiatry
DX: F29 Unspecified psychosis not due to a substance or known physiological condition (principal); F32.A Depression, unspecified; F60.9 Personality disorder, unspecified; F15.90 Other stimulant use, unspecified, uncomplicated; F13.90 Sedative, hypnotic, or anxiolytic use, unspecified, uncomplicated; F12.90 Cannabis use, unspecified, uncomplicated; F17.200 Nicotine dependence, unspecified, uncomplicated; E78.1 Pure hyperglyceridemia; F43.10 Post-traumatic stress disorder, unspecified; Z79.899 Other long term (current) drug therapy; Z81.8 Family history of other mental and behavioral disorders
CPT/HCPCS: 80053; 80061; 80306; 81001; 81025; 82075; 82248; 83036; 84443; 87635; 96372; 99285